=== PATIENT | female | born 1970 | race Two or more races ===

== ENCOUNTER 2017-02-02 18:37 | Inpatient (IN) | payer MEDICAID ==
[~2017-02-02] VITALS: Ht 162.6 cm; Wt 81.0 kg
[~2017-02-02 18:37] MED LIST: ASPI-498 PO; ATOR1TAB PO; B-COTAB10 OR; CALC0.5C PO; CALC667T2 PO; DOC100C PO; FAM20T PO; FERR324T4 PO; FOLITAB45 PO; INSLANTI SC; INSU100I4 SC; LIS20T PO; SENN8.6T54 PO; SEVE800T PO
[2017-02-02 20:00] LABS: Basophils # (auto) 0 uL; Basophils % (auto) 0.3 % (0.0-2.0); Eosinophils # (auto) 0.6 uL; Eosinophils % (auto) 4.6 % (0.0-7.0); Hematocrit 32.2 % (36.0-46.0); Hemoglobin 10.5 g/dL (12.2-16.2); Lymphocytes # (auto) 0.9 uL; Lymphocytes % (auto) 6.9 % (10.0-50.0); Mean Corpuscular Hemoglobin 32.3 pg (28.0-32.0); Mean Corpuscular Hgb Conc. 32.5 g/dL (32.0-36.0); Mean Corpuscular Volume 99.3 fL (80.0-100.0); Mean Platelet Volume 7.9 fL (7.4-10.4); Monocytes # (auto) 0.5 uL; Monocytes % (auto) 3.8 % (0.0-12.0); Neutrophils # (auto) 10.6 uL; Neutrophils % (auto) 84.4 % (37.0-80.0); Platelet Count (auto) 267 10^3/uL (140-450); Red Cell Distribution Width 16.2 % (11.6-16.0); White Blood Cell 12.5 10^3/uL (4.4-10.8)
[2017-02-02 20:09] LABS: Albumin 2.3 g/dL (3.4-5.0); BUN/Creatinine Ratio 4.3; Calcium 6.8 mg/dL (8.5-10.1); Potassium 3.3 mmol/L (3.5-5.1)
[2017-02-02 20:25] LABS: Bilirubin, Total 0.4 mg/dL (0.2-1.0); Total Protein 6.6 g/dL (6.4-8.2)
[2017-02-02] MEDS ORDERED: ASPirin 81 mg TAB PO ONE (21:45)
[2017-02-03] VITALS (8 sets, daily range): BP systolic 147–166; BP diastolic 66–91
[2017-02-03] MEDS ORDERED: cloNIDine HCL 0.1 MG TAB PO PRN (02:30)
[2017-02-03] MEDS ORDERED: MORPHINE SULF INJ 2 MG/ML SYRINGE 1ML IV PRN (02:30)
[2017-02-03] MEDS ORDERED: ONDANSETRON HCL 4 MG/2 ML VIAL IV PRN (02:30)
[2017-02-03] MEDS ORDERED: POTASSIUM CHL 20 Meq TABLET PO ONE (02:30)
[2017-02-03] MEDS ORDERED: DEXTROSE (50%) 50ML SYRG IV PRN (02:30)
[2017-02-03] MEDS ORDERED: NITROGLYCERIN 0.4 MG SL TAB SL PRN (02:30)
[2017-02-03] MEDS ORDERED: ACETAMINOPHEN 325 MG TAB PO PRN (02:30)
[2017-02-03] MEDS: ACCU-CHEK COMFORT CURVE STRIP VI SCH ×4 (05:28→23:59)
[2017-02-03] MEDS: InsuLIN REG 1unit/0.01ml Soln (100units/ml) SC SCH ×3 (06:20→18:28)
[2017-02-03] MEDS ORDERED: LISINOPRIL 20 MG TAB PO SCH (10:00)
[2017-02-03] MEDS ORDERED: CLOPIDOGREL BISULFATE 75 MG TAB PO SCH (10:00)
[2017-02-03] MEDS ORDERED: ASPirin 81 mg TAB PO SCH (10:00)
[2017-02-03] MEDS: ENOXAPARIN SOD 30 MG/0.3 ML SYRINGE SC SCH (10:18)
[2017-02-03] MEDS: FOLIC ACID 1 MG TAB PO SCH (10:19)
[2017-02-03] MEDS: FAMOTIDINE 20 MG TAB PO SCH ×2 (10:19→22:04)
[2017-02-03] MEDS: B-COMPLEX W/ C & FOLIC ACID(NEPHROVITE TAB) PO SCH (10:19)
[2017-02-03] MEDS: FERROUS SULFATE 325 MG TAB PO SCH ×2 (10:20→17:20)
[2017-02-03] MEDS: LISINOPRIL 20 MG TAB PO SCH ×2 (10:24→22:04)
[2017-02-03] MEDS: HYDROcodone-ACET 5/325MG TAB PO PRN (17:20)
[2017-02-03] MEDS ORDERED: LORazepam 2MG/ML-1ML VIAL IV PRN (21:15)
[2017-02-03] MEDS: ATORVASTATIN 20 MG TAB PO SCH (22:05)
[2017-02-04 04:57] VITALS: BP 148/69
[2017-02-04] MEDS: ACCU-CHEK COMFORT CURVE STRIP VI SCH ×3 (05:43→17:37)
[2017-02-04] MEDS: InsuLIN REG 1unit/0.01ml Soln (100units/ml) SC SCH ×4 (05:45→17:38)
[2017-02-04 06:23] LABS: Basophils # (auto) 0.1 uL; Basophils % (auto) 0.6 % (0.0-2.0); Eosinophils # (auto) 0.6 uL; Eosinophils % (auto) 7.1 % (0.0-7.0); Hematocrit 30.4 % (36.0-46.0); Lymphocytes # (auto) 0.9 uL; Lymphocytes % (auto) 9.3 % (10.0-50.0); Mean Corpuscular Hemoglobin 32.4 pg (28.0-32.0); Mean Corpuscular Volume 98.2 fL (80.0-100.0); Mean Platelet Volume 7.8 fL (7.4-10.4); Monocytes # (auto) 0.4 uL; Monocytes % (auto) 4.2 % (0.0-12.0); Neutrophils # (auto) 7.2 uL; Neutrophils % (auto) 78.8 % (37.0-80.0); Platelet Count (auto) 252 10^3/uL (140-450); Red Cell Distribution Width 15.5 % (11.6-16.0); White Blood Cell 9.2 10^3/uL (4.4-10.8)
[2017-02-04 07:00] LABS: Albumin 2.2 g/dL (3.4-5.0); BUN/Creatinine Ratio 4.6; Bilirubin, Total 0.4 mg/dL (0.2-1.0); Calcium 6.9 mg/dL (8.5-10.1); Potassium 3.5 mmol/L (3.5-5.1); Total Protein 6.2 g/dL (6.4-8.2)
[2017-02-04] MEDS: FERROUS SULFATE 325 MG TAB PO SCH ×2 (07:43→17:38)
[2017-02-04 09:00] VITALS: BP 191/91
[2017-02-04] MEDS: B-COMPLEX W/ C & FOLIC ACID(NEPHROVITE TAB) PO SCH (10:15)
[2017-02-04] MEDS: ASPirin 81 mg TAB PO SCH (10:15)
[2017-02-04] MEDS: FAMOTIDINE 20 MG TAB PO SCH ×2 (10:15→22:18)
[2017-02-04] MEDS: FOLIC ACID 1 MG TAB PO SCH (10:15)
[2017-02-04] MEDS: ENOXAPARIN SOD 30 MG/0.3 ML SYRINGE SC SCH (10:16)
[2017-02-04] MEDS: LISINOPRIL 20 MG TAB PO SCH ×2 (10:16→22:18)
[2017-02-04 13:00] VITALS: BP 177/73
[2017-02-04 17:00] VITALS: BP 153/66
[2017-02-04 20:00] VITALS: BP 159/73
[2017-02-04 22:00] VITALS: BP 159/73
[2017-02-04] MEDS: ATORVASTATIN 20 MG TAB PO SCH (22:17)
[2017-02-05] MEDS: ACCU-CHEK COMFORT CURVE STRIP VI SCH ×3 (00:30→12:05)
[2017-02-05] MEDS: InsuLIN REG 1unit/0.01ml Soln (100units/ml) SC SCH ×2 (00:30→07:12)
[2017-02-05 05:57] VITALS: BP 155/76
[2017-02-05 06:32] LABS: BUN/Creatinine Ratio 4.7; Calcium 6.7 mg/dL (8.5-10.1); Potassium 3.5 mmol/L (3.5-5.1)
[2017-02-05] MEDS: FERROUS SULFATE 325 MG TAB PO SCH (08:38)
[2017-02-05] MEDS: HYDROcodone-ACET 5/325MG TAB PO PRN (08:38)
[2017-02-05 10:29] VITALS: BP 168/74
[2017-02-05] MEDS: ASPirin 81 mg TAB PO SCH (10:36)
[2017-02-05] MEDS: ENOXAPARIN SOD 30 MG/0.3 ML SYRINGE SC SCH (10:37)
[2017-02-05] MEDS: FAMOTIDINE 20 MG TAB PO SCH (10:37)
[2017-02-05] MEDS: B-COMPLEX W/ C & FOLIC ACID(NEPHROVITE TAB) PO SCH (10:37)
[2017-02-05] MEDS: FOLIC ACID 1 MG TAB PO SCH (10:37)
[2017-02-05] MEDS: LISINOPRIL 20 MG TAB PO SCH (10:39)
[2017-02-05 14:11] VITALS: BP 168/74
[2017-02-05 14:41] VITALS: BP 165/82
[2017-02-06] MEDS ORDERED: LOSA50TA6 PO (23:04)
[2017-02-06] MEDS ORDERED: GABA300C8 PO (23:04)
[2017-02-06] MEDS ORDERED: CARV3.1240 PO (23:04)
== END 2017-02-05 15:40 | disposition home or self-care (01) | DRG 45 ==
LOC: EDUNIT# 18:37 → ER 18:43 → TELE 18:44 → TELE-CENTR 02-03 03:23
PROVIDERS: ADMIT Nurse Practitioner; ATTEND Internal Medicine
DX: I63.9 Cerebral infarction, unspecified (principal); E43 Unspecified severe protein-calorie malnutrition; N18.6 End stage renal disease; I12.0 Hypertensive chronic kidney disease with stage 5 chronic kidney disease or end stage renal disease; E11.65 Type 2 diabetes mellitus with hyperglycemia; E11.42 Type 2 diabetes mellitus with diabetic polyneuropathy; E11.22 Type 2 diabetes mellitus with diabetic chronic kidney disease; I05.0 Rheumatic mitral stenosis; E78.00 Pure hypercholesterolemia, unspecified; Z79.899 Other long term (current) drug therapy; Z79.82 Long term (current) use of aspirin; Z79.02 Long term (current) use of antithrombotics/antiplatelets; Z83.3 Family history of diabetes mellitus; Z82.49 Family history of ischemic heart disease and other diseases of the circulatory system; Z99.2 Dependence on renal dialysis; Z72.0 Tobacco use; Z84.89 Family history of other specified conditions; Z68.30 Body mass index [BMI] 30.0-30.9, adult
CPT/HCPCS: 36415; 70450; 70551; 71010; 80048; 80053; 82962; 84484; 84702; 85025; 93005; 93886; J1815; J2405

== ENCOUNTER 2017-02-06 13:27 | Observation (INO) | payer MEDICAID ==
[~2017-02-06] VITALS: Ht 165.1 cm; Wt 81.6 kg
[2017-02-06 14:25] LABS: Basophils # (auto) 0 uL; Basophils % (auto) 0.1 % (0.0-2.0); Eosinophils # (auto) 0.2 uL; Eosinophils % (auto) 2.1 % (0.0-7.0); Hematocrit 29.4 % (36.0-46.0); Hemoglobin 9.8 g/dL (12.2-16.2); Lymphocytes # (auto) 0.6 uL; Lymphocytes % (auto) 5.6 % (10.0-50.0); Mean Corpuscular Hemoglobin 32.5 pg (28.0-32.0); Mean Corpuscular Hgb Conc. 33.2 g/dL (32.0-36.0); Mean Corpuscular Volume 97.7 fL (80.0-100.0); Mean Platelet Volume 7.9 fL (7.4-10.4); Monocytes # (auto) 0.5 uL; Monocytes % (auto) 4.6 % (0.0-12.0); Neutrophils # (auto) 10.2 uL; Neutrophils % (auto) 87.6 % (37.0-80.0); Platelet Count (auto) 272 10^3/uL (140-450); Red Cell Distribution Width 15.1 % (11.6-16.0); White Blood Cell 11.6 10^3/uL (4.4-10.8)
[2017-02-06 14:50] LABS: Albumin 2.1 g/dL (3.4-5.0); BUN/Creatinine Ratio 4.4; Bilirubin, Total 0.4 mg/dL (0.2-1.0); Calcium 7.2 mg/dL (8.5-10.1); Potassium 3.6 mmol/L (3.5-5.1); Total Protein 6.2 g/dL (6.4-8.2)
[2017-02-06 18:47] LABS: INR 0.98 (0.9-1.15); Partial Thromboplastin Time 25.7 sec (22.64-33.71); Prothrombin Time 10.1 sec (9.37-12.3)
[2017-02-06] MEDS ORDERED: ACETAMINOPHEN 325 MG TAB PO ONE (21:00)
[2017-02-06] MEDS ORDERED: CARV3.1240 PO (23:04)
[2017-02-06] MEDS ORDERED: GABA300C8 PO (23:04)
[2017-02-06] MEDS ORDERED: LOSA50TA6 PO (23:04)
[2017-02-06] MEDS ORDERED: LORazepam 0.5 MG TAB PO ONE (23:30)
[2017-02-07 00:57] VITALS: BP 174/86
== END 2017-02-07 01:00 | disposition home or self-care (01) | DRG 53 ==
LOC: ER 13:27 → OVERFLOW 17:47 → ER 02-07 01:00
PROVIDERS: ADMIT Family Medicine; ATTEND Family Medicine
DX: R56.9 Unspecified convulsions (principal); I12.0 Hypertensive chronic kidney disease with stage 5 chronic kidney disease or end stage renal disease; N18.6 End stage renal disease; E11.22 Type 2 diabetes mellitus with diabetic chronic kidney disease; Z99.2 Dependence on renal dialysis; K21.9 Gastro-esophageal reflux disease without esophagitis; D63.8 Anemia in other chronic diseases classified elsewhere; E78.5 Hyperlipidemia, unspecified; Z79.4 Long term (current) use of insulin
CPT/HCPCS: 36415; 70450; 71010; 80053; 82962; 83735; 85025; 85610; 85730; 93005; 99285; G0378

== ENCOUNTER 2017-05-26 15:58 | Emergency (ER) | payer MEDICAID ==
[~2017-05-26] VITALS: Ht 167.6 cm; Wt 72.6 kg
[~2017-05-26 15:58] MED LIST changes: +CARV3.1240 PO; +GABA-497 PO; -LIS20T PO; +LOSA50TA6 PO
[2017-05-26 16:50] LABS: Basophils # (auto) 0 uL; Basophils % (auto) 0.3 % (0.0-2.0); CONDITION Y; Eosinophils # (auto) 0.2 uL; Eosinophils % (auto) 2.1 % (0.0-7.0); Hematocrit 30.5 % (36.0-46.0); Hemoglobin 10.2 g/dL (12.2-16.2); Lymphocytes # (auto) 0.7 uL; Lymphocytes % (auto) 8.6 % (10.0-50.0); Mean Corpuscular Hemoglobin 32.6 pg (28.0-32.0); Mean Corpuscular Hgb Conc. 33.6 g/dL (32.0-36.0); Mean Corpuscular Volume 97.2 fL (80.0-100.0); Mean Platelet Volume 7.5 fL (7.4-10.4); Monocytes # (auto) 0.4 uL; Monocytes % (auto) 4.1 % (0.0-12.0); Neutrophils # (auto) 7.3 uL; Neutrophils % (auto) 84.9 % (37.0-80.0); Platelet Count (auto) 404 10^3/uL (140-450); Red Cell Distribution Width 17.8 % (11.6-16.0); White Blood Cell 8.6 10^3/uL (4.4-10.8)
[2017-05-26 17:06] LABS: BUN/Creatinine Ratio 3.5; Potassium 4.3 mmol/L (3.5-5.1)
[2017-05-26] MEDS ORDERED: ENOXAPARIN SOD 80 MG/0.8ML SYRINGE SC ONE (22:30)
[2017-05-26] MEDS ORDERED: HYDROmorphone HCL 2 MG/ML VL IV ONE (22:45)
[2017-05-26] MEDS ORDERED: ONDANSETRON HCL 4 MG/2 ML VIAL IV ONE (22:45)
[2017-05-27 03:08] VITALS: BP 134/75
[2017-05-27] MEDS ORDERED: ONDANSETRON HCL 4 MG/2 ML VIAL ONE (03:13)
== END 2017-05-27 04:02 | disposition short-term general hospital (02) ==
LOC: ER 16:02
DX: E11.52 Type 2 diabetes mellitus with diabetic peripheral angiopathy with gangrene (principal); I96 Gangrene, not elsewhere classified; I12.0 Hypertensive chronic kidney disease with stage 5 chronic kidney disease or end stage renal disease; D64.9 Anemia, unspecified; E11.22 Type 2 diabetes mellitus with diabetic chronic kidney disease; N18.6 End stage renal disease; K21.9 Gastro-esophageal reflux disease without esophagitis; Z79.4 Long term (current) use of insulin; Z79.899 Other long term (current) drug therapy; Z88.0 Allergy status to penicillin; Z87.891 Personal history of nicotine dependence
CPT/HCPCS: 36415; 73700; 80048; 85025; 93005; 96372; 96374; 96375; 99285; J1170; J1650; J2405

== ENCOUNTER 2018-01-16 13:15 | Inpatient (IN) | payer MEDICAID ==
[~2018-01-16] VITALS: Ht 165.1 cm; Wt 77.3 kg
[2018-01-16] VITALS (11 sets, daily range): BP systolic 97–127; BP diastolic 20–64
[~2018-01-16 13:15] MED LIST changes: -ASPI-498 PO; +ATOR10TA52 PO; -ATOR1TAB PO; +B-COTAB10 PO; +CALC667C PO; -CALC667T2 PO; +CLOP75TA28 PO; -FAM20T PO; +FAMO20IN2 PO; +FERR-20 PO; -FERR324T4 PO; +FOLI1TAB6 PO; -FOLITAB45 PO; -GABA-497 PO; +GABA300C10 PO; -INSLANTI SC; +INSUINJ37 SUBCUT; +LORA1TAB12 PO; -LOSA50TA6 PO; +VENL75TA PO; +WARF5TAB71 PO; +ZINC220C8 PO
[2018-01-16 14:02] LABS: Basophils # (auto) 0.1 uL; Basophils % (auto) 0.6 % (0.0-2.0); Eosinophils # (auto) 0.4 uL; Mean Corpuscular Hgb Conc. 32.6 g/dL (32.0-36.0); Monocytes # (auto) 0.6 uL; Neutrophils # (auto) 10.6 uL
[2018-01-16 14:03] LABS: Eosinophils % (auto) 3.3 % (0.0-7.0); Hematocrit 17.7 % (36.0-46.0); Lymphocytes # (auto) 1.2 uL; Lymphocytes % (auto) 9.3 % (10.0-50.0); Mean Corpuscular Hemoglobin 33.1 pg (28.0-32.0); Mean Corpuscular Volume 101.6 fL (80.0-100.0); Monocytes % (auto) 4.9 % (0.0-12.0); Neutrophils % (auto) 81.9 % (37.0-80.0); Platelet Count (auto) 299 10^3/uL (140-450); Red Blood Cells 1.74 10^6/uL (4.0-5.20); Red Cell Distribution Width 16.2 % (11.8-14.3)
[2018-01-16 14:21] LABS: Albumin 1.7 g/dL (3.4-5.0); BUN/Creatinine Ratio 6.5; Bilirubin, Total 0.2 mg/dL (0.2-1.0); Calcium 8.3 mg/dL (8.5-10.1); Hemoglobin 5.8 g/dL (12.2-16.2); Potassium 4.2 mmol/L (3.5-5.1)
[2018-01-16] MEDS ORDERED: SODIUM CHLORIDE 0.9% 1,000 ML IV ONE (15:41)
[2018-01-16 16:58] LABS: Prothrombin Time 86.4 sec (9.37-12.3)
[2018-01-16 17:17] LABS: INR 7.76 (0.9-1.15)
[2018-01-16 17:18] LABS: Partial Thromboplastin Time 83.2 sec (22.64-33.71)
[2018-01-16] MEDS ORDERED: cefTRIAXone 1GM/10ml IVPUSH 10 ML IV ONE (17:30)
[2018-01-16] MEDS ORDERED: cefTRIAXone SOD 1,000 MG VL ONE (19:20)
[2018-01-16] MEDS ORDERED: PERCOT PO (22:38)
[2018-01-16] MEDS ORDERED: NIFE60TA53 PO (22:38)
[2018-01-16] MEDS ORDERED: SENN1TAB14 PO (22:38)
[2018-01-16] MEDS ORDERED: MORPHINE SULFATE 4 MG/ML SYR/VIAL IV PRN (22:45)
[2018-01-16] MEDS ORDERED: ONDANSETRON HCL 4 MG/2 ML VIAL IV PRN (22:45)
[2018-01-16] MEDS ORDERED: HYDROcodone-ACET 5/325MG TAB PO PRN (22:45)
[2018-01-16] MEDS ORDERED: ACETAMINOPHEN 500 MG TAB PO PRN (22:45)
[2018-01-16] MEDS ORDERED: LORazepam 0.5 MG TAB PO PRN (22:45)
[2018-01-16] MEDS ORDERED: PHYTONADIONE (VIT K)10 MG/ML 1ML VIAL SUBCUT ONE (22:45)
[2018-01-16] MEDS ORDERED: NITROGLYCERIN 0.4 MG SL TAB SL PRN (22:45)
[2018-01-16] MEDS ORDERED: DEXTROSE (50%) 50ML SYRG IV PRN (22:45)
[2018-01-16] MEDS ORDERED: phytonadione 1 ML ONE (22:51)
[2018-01-17] VITALS (8 sets, daily range): BP systolic 110–177; BP diastolic 56–76
[2018-01-17 01:36] LABS: Hematocrit 25.1 % (36.0-46.0); Hemoglobin 8.5 g/dL (12.2-16.2); Mean Corpuscular Hemoglobin 30.2 pg (28.0-32.0); Mean Corpuscular Hgb Conc. 33.8 g/dL (32.0-36.0); Mean Corpuscular Volume 89.4 fL (80.0-100.0); Platelet Count (auto) 220 10^3/uL (140-450); White Blood Cell 9.2 10^3/uL (4.4-10.8)
[2018-01-17 01:37] LABS: Red Cell Distribution Width 20.8 % (11.8-14.3)
[2018-01-17 01:38] LABS: Basophils % (manual) 0 (0.0-2.0); Blast Cells 0; Metamyelocytes % 0; Myelocytes % 0; Promyelocytes % 0; Reactive Lymphocytes 0
[2018-01-17 02:14] LABS: Band Neutrophils % (manual) 1; Eosinophils % (manual) 2 (0-7); Lymphocytes % (manual) 16 (10.0-50.0); Monocytes % (manual) 2 (0-12)
[2018-01-17] MEDS: InsuLIN REG 1unit/0.01ml Soln (100units/ml) SC SCH ×3 (07:00→17:34)
[2018-01-17] MEDS: ACCU-CHEK COMFORT CURVE STRIP VI SCH ×3 (07:06→17:29)
[2018-01-17 08:23] LABS: INR 2.55 (0.9-1.15); Partial Thromboplastin Time 49.3 sec (22.64-33.71); Prothrombin Time 28.1 sec (9.37-12.3)
[2018-01-17 08:26] LABS: BUN/Creatinine Ratio 6.8; Calcium 8.2 mg/dL (8.5-10.1)
[2018-01-17] MEDS: SEVELAMER 800 MG TAB PO SCH ×3 (09:14→17:29)
[2018-01-17] MEDS: GABAPENTIN 300 MG CAP PO SCH (10:01)
[2018-01-18] MEDS: PERITONEAL DIALYSIS 2.5% SOLN 2,000 ML IP SCH
[2018-01-18] MEDS: InsuLIN REG 1unit/0.01ml Soln (100units/ml) SC SCH ×5 (00:31→22:08)
[2018-01-18] MEDS: ACCU-CHEK COMFORT CURVE STRIP VI SCH ×5 (00:31→22:07)
[2018-01-18] MEDS ORDERED: NIFEdipine ER 30 MG TAB PO ONE (01:00)
[2018-01-18] MEDS ORDERED: CARVEDILOL 3.125 MG TAB PO ONE (01:00)
[2018-01-18 05:30] VITALS: BP 129/67
[2018-01-18] MEDS: PERITONEAL DIALYSIS 1.5% SOLN 2,000 ML IP SCH ×2 (06:20→11:13)
[2018-01-18 06:44] LABS: White Blood Cell 12.8 10^3/uL (4.4-10.8)
[2018-01-18 06:45] LABS: Hematocrit 25.3 % (36.0-46.0); Hemoglobin 8.5 g/dL (12.2-16.2); Mean Corpuscular Hemoglobin 30.1 pg (28.0-32.0); Mean Corpuscular Hgb Conc. 33.6 g/dL (32.0-36.0); Mean Corpuscular Volume 89.6 fL (80.0-100.0); Platelet Count (auto) 246 10^3/uL (140-450); Red Blood Cells 2.83 10^6/uL (4.0-5.20)
[2018-01-18 06:46] LABS: Red Cell Distribution Width 20.4 % (11.8-14.3)
[2018-01-18 06:48] LABS: Band Neutrophils % (manual) 0; Basophils % (manual) 0 (0.0-2.0); Blast Cells 0; Metamyelocytes % 0; Myelocytes % 0; Promyelocytes % 0; Reactive Lymphocytes 0
[2018-01-18 07:05] LABS: Albumin 1.7 g/dL (3.4-5.0); BUN/Creatinine Ratio 6.9; Calcium 8.1 mg/dL (8.5-10.1)
[2018-01-18 07:08] LABS: Bilirubin, Total 0.4 mg/dL (0.2-1.0); Total Protein 5.8 g/dL (6.4-8.2)
[2018-01-18 07:22] LABS: Eosinophils % (manual) 3 (0-7); Lymphocytes % (manual) 11 (10.0-50.0); Monocytes % (manual) 3 (0-12)
[2018-01-18] MEDS: SEVELAMER 800 MG TAB PO SCH ×3 (08:10→18:10)
[2018-01-18 08:22] VITALS: BP 109/53
[2018-01-18] MEDS: NIFEdipine ER 30 MG TAB PO SCH (10:00)
[2018-01-18] MEDS: CARVEDILOL 3.125 MG TAB PO SCH ×2 (10:05→22:08)
[2018-01-18] MEDS: GABAPENTIN 300 MG CAP PO SCH (10:06)
[2018-01-18 13:22] VITALS: BP 137/58
[2018-01-18 16:54] VITALS: BP 151/68
[2018-01-18] MEDS ORDERED: EPOETIN ALFA 10,000 UNIT/1 ML VIAL SC ONE (17:45)
[2018-01-18] MEDS: PRO-STAT 64 30ML PO SCH (18:10)
[2018-01-18 21:19] VITALS: BP 169/81
[2018-01-19] MEDS: PERITONEAL DIALYSIS 2.5% SOLN 2,000 ML IP SCH ×2 (00:16→05:50)
[2018-01-19 00:22] VITALS: BP 156/66
[2018-01-19 05:36] VITALS: BP 146/66
[2018-01-19] MEDS: PERITONEAL DIALYSIS 1.5% SOLN 2,000 ML IP SCH (06:12)
[2018-01-19] MEDS: ACCU-CHEK COMFORT CURVE STRIP VI SCH (06:19)
[2018-01-19] MEDS: InsuLIN REG 1unit/0.01ml Soln (100units/ml) SC SCH (06:20)
[2018-01-19 06:41] LABS: Neutrophils # (auto) 8.1 uL
[2018-01-19 06:44] LABS: Basophils # (auto) 0.1 uL; Basophils % (auto) 0.5 % (0.0-2.0); Eosinophils # (auto) 0.5 uL; Eosinophils % (auto) 4.6 % (0.0-7.0); Hematocrit 24.6 % (36.0-46.0); Hemoglobin 8.2 g/dL (12.2-16.2); Lymphocytes % (auto) 9.9 % (10.0-50.0); Mean Corpuscular Hgb Conc. 33.3 g/dL (32.0-36.0); Mean Corpuscular Volume 90.1 fL (80.0-100.0); Monocytes # (auto) 0.4 uL; Monocytes % (auto) 4.2 % (0.0-12.0); Neutrophils % (auto) 80.8 % (37.0-80.0); Platelet Count (auto) 256 10^3/uL (140-450); Red Blood Cells 2.73 10^6/uL (4.0-5.20); White Blood Cell 10.1 10^3/uL (4.4-10.8)
[2018-01-19 06:46] LABS: Prothrombin Time 10.9 sec (9.37-12.3)
[2018-01-19 06:56] LABS: Red Cell Distribution Width 20.5 % (11.8-14.3)
[2018-01-19 06:59] LABS: Potassium 3.8 mmol/L (3.5-5.1)
[2018-01-19 07:16] LABS: Albumin 1.7 g/dL (3.4-5.0); BUN/Creatinine Ratio 6.9; Calcium 8.2 mg/dL (8.5-10.1)
[2018-01-19 07:19] LABS: Bilirubin, Total 0.4 mg/dL (0.2-1.0); Total Protein 5.8 g/dL (6.4-8.2)
[2018-01-19] MEDS: SEVELAMER 800 MG TAB PO SCH (08:00)
[2018-01-19] MEDS: PRO-STAT 64 30ML PO SCH (08:00)
[2018-01-19 08:42] VITALS: BP 130/59
[2018-01-19] MEDS: GABAPENTIN 300 MG CAP PO SCH (09:50)
[2018-01-19] MEDS: NIFEdipine ER 30 MG TAB PO SCH (09:50)
[2018-01-19] MEDS: CARVEDILOL 3.125 MG TAB PO SCH (09:50)
[2018-01-19] MEDS ORDERED: Novasource Renal 8 Ounces PO SCH (10:00)
[2018-01-19 11:04] VITALS: BP 143/68
[2018-01-19 12:35] VITALS: BP 149/69
== END 2018-01-19 14:38 | disposition home or self-care (01) | DRG 661 ==
LOC: EDUNIT# 13:15 → ER 13:15 → EDBD 13:15 → OVERFLOW 13:16 → TELE-EAST 01-17 03:00
PROVIDERS: ADMIT Internal Medicine; ATTEND Internal Medicine
PROC: 30233L1 Transfusion of Nonautologous Fresh Plasma into Peripheral Vein, Percutaneous Approach (ICD-10-PCS; principal; 2018-01-16)
PROC: 30233N1 Transfusion of Nonautologous Red Blood Cells into Peripheral Vein, Percutaneous Approach (ICD-10-PCS; 2018-01-16)
PROC: 30233K1 Transfusion of Nonautologous Frozen Plasma into Peripheral Vein, Percutaneous Approach (ICD-10-PCS; 2018-01-16)
DX: D68.32 Hemorrhagic disorder due to extrinsic circulating anticoagulants (principal); E43 Unspecified severe protein-calorie malnutrition; D68.59 Other primary thrombophilia; N18.6 End stage renal disease; I12.0 Hypertensive chronic kidney disease with stage 5 chronic kidney disease or end stage renal disease; E11.51 Type 2 diabetes mellitus with diabetic peripheral angiopathy without gangrene; N92.0 Excessive and frequent menstruation with regular cycle; D50.0 Iron deficiency anemia secondary to blood loss (chronic); E11.621 Type 2 diabetes mellitus with foot ulcer; T45.515A Adverse effect of anticoagulants, initial encounter; D63.8 Anemia in other chronic diseases classified elsewhere; F41.9 Anxiety disorder, unspecified; G40.909 Epilepsy, unspecified, not intractable, without status epilepticus; L97.511 Non-pressure chronic ulcer of other part of right foot limited to breakdown of skin; F32.9 Major depressive disorder, single episode, unspecified; Z80.0 Family history of malignant neoplasm of digestive organs; Z80.1 Family history of malignant neoplasm of trachea, bronchus and lung; Z89.512 Acquired absence of left leg below knee; Z99.2 Dependence on renal dialysis; Z79.899 Other long term (current) drug therapy; Y92.89 Other specified places as the place of occurrence of the external cause; Z68.28 Body mass index [BMI] 28.0-28.9, adult; Z82.49 Family history of ischemic heart disease and other diseases of the circulatory system; Z83.3 Family history of diabetes mellitus; E88.09 Other disorders of plasma-protein metabolism, not elsewhere classified
CPT/HCPCS: 36415; 71045; 76830; 76856; 80048; 80053; 82962; 83036; 83735; 83880; 84443; 84702; 85007; 85025; 85027; 85610; 85730; 86850; 86900; 86901; 86920; 87040; 87081; 93005; 94761; 96361; 96374; 97163; G0378; J0696; J0885; J1815; J3430

== ENCOUNTER 2018-04-10 19:42 | Inpatient (IN) | payer MEDICAID ==
[~2018-04-10] VITALS: Ht 160 cm; Wt 73.0 kg
[~2018-04-10 19:42] MED LIST changes: -B-COTAB10 PO; -CALC0.5C PO; +NIFE60TA53 PO; +PERCOT PO; +SENN1TAB14 PO; -SENN8.6T54 PO
[2018-04-10] MEDS ORDERED: SODIUM CHLORIDE 0.9% 1,000 ML IVB ONE (21:09)
[2018-04-10 21:53] LABS: Mean Corpuscular Volume 95.7 fL (80.0-100.0)
[2018-04-10 21:55] LABS: Hematocrit 35.4 % (36.0-46.0); Hemoglobin 11.8 g/dL (12.2-16.2); Mean Corpuscular Hgb Conc. 33.4 g/dL (32.0-36.0); Platelet Count (auto) 515 10^3/uL (140-450); Red Cell Distribution Width 15.7 % (11.8-14.3)
[2018-04-10 22:00] LABS: White Blood Cell 31.8 10^3/uL (4.4-10.8)
[2018-04-10 22:01] LABS: Band Neutrophils % (manual) 0; Basophils % (manual) 0 (0.0-2.0); Blast Cells 0; Eosinophils % (manual) 0 (0-7); Metamyelocytes % 0; Myelocytes % 0; Promyelocytes % 0; Reactive Lymphocytes 0
[2018-04-10 22:03] LABS: INR 1.01 (0.9-1.15); Partial Thromboplastin Time 26.6 sec (23.78-33.04); Prothrombin Time 10.8 sec (9.27-12.13)
[2018-04-10 22:09] LABS: Albumin 1.3 g/dL (3.4-5.0); BUN/Creatinine Ratio 4.2; Calcium 7.3 mg/dL (8.5-10.1); Magnesium 1.7 mg/dL (1.6-2.6)
[2018-04-10 22:14] LABS: Bilirubin, Total 0.3 mg/dL (0.2-1.0); Total Protein 6.5 g/dL (6.4-8.2)
[2018-04-10] MEDS ORDERED: CLINDAMYCIN 600MG IV 50 ML IV ONE (22:15)
[2018-04-10 22:25] LABS: Potassium 2.8 mmol/L (3.5-5.1)
[2018-04-10 22:33] LABS: Lactic Acid w/Reflex 3.5 mmol/L (0.4-2.0)
[2018-04-10] MEDS ORDERED: MORPHINE SULFATE 4 MG/ML SYR/VIAL IV ONE (22:45)
[2018-04-10] MEDS ORDERED: ONDANSETRON HCL 4 MG/2 ML VIAL IV ONE (22:45)
[2018-04-10 22:56] LABS: Lymphocytes % (manual) 4 (10.0-50.0); Monocytes % (manual) 1 (0-12)
[2018-04-10] MEDS ORDERED: DEXTROSE (50%) 50ML SYRG IV PRN (23:00)
[2018-04-10] MEDS ORDERED: MORPHINE SULFATE 4 MG/ML SYR/VIAL IV PRN (23:00)
[2018-04-10] MEDS: POTASSIUM CHL 20MEQ/100ML 100 ML IV SCH (23:30)
[2018-04-11 02:30] VITALS: BP 135/74
[2018-04-11] MEDS ORDERED: VANCOMYCIN PER PHARMACY 0 MG IV SCH (03:30)
[2018-04-11] MEDS: POTASSIUM CHL 20MEQ/100ML 100 ML IV SCH (03:56)
[2018-04-11] MEDS: MORPHINE SULFATE 8mg/ml INJ SDV IV PRN ×4 (03:58→22:01)
[2018-04-11] MEDS ORDERED: VANCOMYCIN 1GM/250ML 250 ML IV ONE (04:00)
[2018-04-11] MEDS ORDERED: cefTRIAXone 1GM/10ml IVPUSH 10 ML IV ONE (04:00)
[2018-04-11 05:00] VITALS: BP 122/71
[2018-04-11 06:07] LABS: Hematocrit 31.6 % (36.0-46.0); Mean Corpuscular Hemoglobin 31.1 pg (28.0-32.0); Mean Corpuscular Hgb Conc. 31.6 g/dL (32.0-36.0); Mean Corpuscular Volume 98.3 fL (80.0-100.0); Platelet Count (auto) 420 10^3/uL (140-450); Red Blood Cells 3.22 10^6/uL (4.0-5.20); Red Cell Distribution Width 15.9 % (11.8-14.3)
[2018-04-11 06:23] LABS: White Blood Cell 37.4 10^3/uL (4.4-10.8)
[2018-04-11 06:24] LABS: Basophils % (manual) 0 (0.0-2.0); Blast Cells 0; Eosinophils % (manual) 0 (0-7); Metamyelocytes % 0; Myelocytes % 0; Promyelocytes % 0; Reactive Lymphocytes 0
[2018-04-11 06:29] LABS: Albumin 1.1 g/dL (3.4-5.0); BUN/Creatinine Ratio 4.8; Bilirubin, Total 0.2 mg/dL (0.2-1.0); Calcium 6.6 mg/dL (8.5-10.1); Potassium 3.4 mmol/L (3.5-5.1); Total Protein 5.6 g/dL (6.4-8.2)
[2018-04-11] MEDS: LEVOTHYROXINE SODIUM 100 MCG TAB PO SCH (06:47)
[2018-04-11] MEDS: ACCU-CHEK COMFORT CURVE STRIP VI SCH ×4 (06:49→21:42)
[2018-04-11] MEDS: InsuLIN REG 1unit/0.01ml Soln (100units/ml) SC SCH ×4 (06:50→22:01)
[2018-04-11 08:20] LABS: Band Neutrophils % (manual) 5; Lymphocytes % (manual) 1 (10.0-50.0); Monocytes % (manual) 2 (0-12)
[2018-04-11] MEDS: SEVELAMER 800 MG TAB PO SCH ×3 (09:00→17:15)
[2018-04-11 09:11] VITALS: BP 123/63
[2018-04-11] MEDS: FOLIC ACID 1 MG TAB PO SCH (09:24)
[2018-04-11] MEDS: CLOPIDOGREL BISULFATE 75 MG TAB PO SCH (09:24)
[2018-04-11] MEDS: ONDANSETRON HCL 4 MG/2 ML VIAL IV PRN ×3 (09:24→21:42)
[2018-04-11] MEDS: CARVEDILOL 12.5 MG TAB PO SCH ×2 (09:25→21:42)
[2018-04-11] MEDS: ASPirin-EC 81 mg tab PO SCH (09:25)
[2018-04-11] MEDS: amLODIPine BESYLATE 5 MG TAB PO SCH (09:26)
[2018-04-11 12:26] VITALS: BP 137/66
[2018-04-11] MEDS ORDERED: POTASSIUM CHL 10% (20 MEQ/15ML) 15ml ORAL SOLN PO ONE (16:00)
[2018-04-11 17:36] VITALS: BP 105/59
[2018-04-11] MEDS ORDERED: GENTAMICIN SULFATE IP ONE (18:00)
[2018-04-11] MEDS ORDERED: [UNRECOGNIZED DRUG - OTHER] IP ONE (18:00)
[2018-04-11] MEDS ORDERED: HEPARIN SODIUM IP ONE (18:00)
[2018-04-11] MEDS: LEVOFLOXACIN 250MG 50 ML IV SCH (18:20)
[2018-04-11 22:00] VITALS: BP 112/62
[2018-04-11] MEDS ORDERED: ATORVASTATIN 20 MG TAB PO SCH (22:00)
[2018-04-12 05:04] VITALS: BP_SYST 94; BP_SYST 99; BP_DIAS 47; BP_DIAS 55
[2018-04-12 05:37] LABS: Eosinophils % (auto) 0.2 % (0.0-7.0); Hemoglobin 7.7 g/dL (12.2-16.2); Lymphocytes # (auto) 1.2 uL; Monocytes % (auto) 2.9 % (0.0-12.0)
[2018-04-12 05:39] LABS: Basophils # (auto) 0 uL; Basophils % (auto) 0.1 % (0.0-2.0); Eosinophils # (auto) 0.1 uL; Hematocrit 23.2 % (36.0-46.0); Lymphocytes % (auto) 4.6 % (10.0-50.0); Mean Corpuscular Hemoglobin 32.6 pg (28.0-32.0); Mean Corpuscular Hgb Conc. 33.2 g/dL (32.0-36.0); Monocytes # (auto) 0.7 uL; Neutrophils # (auto) 23.8 uL; Neutrophils % (auto) 92.2 % (37.0-80.0); Platelet Count (auto) 289 10^3/uL (140-450); Red Blood Cells 2.37 10^6/uL (4.0-5.20); Red Cell Distribution Width 16.1 % (11.8-14.3); White Blood Cell 25.8 10^3/uL (4.4-10.8)
[2018-04-12 06:00] LABS: Albumin 0.9 g/dL (3.4-5.0); Calcium 6.7 mg/dL (8.5-10.1); Potassium 3.8 mmol/L (3.5-5.1)
[2018-04-12] MEDS ORDERED: PERITONEAL DIALYSIS 2.5% IP ONE ×5 (06:00→18:00)
[2018-04-12] MEDS ORDERED: HEPARIN SODIUM IP ONE ×5 (06:00→18:00)
[2018-04-12 06:02] LABS: BUN/Creatinine Ratio 5.4
[2018-04-12 06:05] LABS: Bilirubin, Total 0.2 mg/dL (0.2-1.0); Total Protein 5.1 g/dL (6.4-8.2)
[2018-04-12] MEDS: HYDROcodone-ACET 5/325MG TAB PO PRN ×2 (06:07→19:33)
[2018-04-12] MEDS: LEVOTHYROXINE SODIUM 100 MCG TAB PO SCH (06:39)
[2018-04-12] MEDS: InsuLIN REG 1unit/0.01ml Soln (100units/ml) SC SCH ×3 (06:39→18:24)
[2018-04-12] MEDS: ACCU-CHEK COMFORT CURVE STRIP VI SCH ×4 (06:39→22:44)
[2018-04-12] MEDS: SEVELAMER 800 MG TAB PO SCH ×3 (08:47→18:23)
[2018-04-12 09:00] VITALS: BP 99/52
[2018-04-12] MEDS ORDERED: cefTRIAXone 1GM/10ml IVPUSH 10 ML IV SCH (09:00)
[2018-04-12] MEDS ORDERED: CARVEDILOL 3.125 MG TAB PO SCH (10:00)
[2018-04-12] MEDS: amLODIPine BESYLATE 5 MG TAB PO SCH (10:00)
[2018-04-12] MEDS: CLOPIDOGREL BISULFATE 75 MG TAB PO SCH (10:21)
[2018-04-12] MEDS: FOLIC ACID 1 MG TAB PO SCH (10:22)
[2018-04-12] MEDS: ASPirin-EC 81 mg tab PO SCH (10:22)
[2018-04-12 13:00] VITALS: BP 101/72
[2018-04-12 17:00] VITALS: BP 104/56
[2018-04-12 20:00] VITALS: BP 125/57
[2018-04-12] MEDS ORDERED: VANCOMYCIN PER PHARMACY 0 MG IV SCH (20:00)
[2018-04-12] MEDS ORDERED: EPOETIN ALFA 10,000 UNIT/1 ML VIAL SC ONE (20:30)
[2018-04-12] MEDS: SODIUM CHLORIDE 0.9% 1,000 ML IV SCH (21:57)
[2018-04-12] MEDS: ALBUMIN 25% 100 ML IV SCH (21:58)
[2018-04-13] VITALS (12 sets, daily range): BP systolic 127–157; BP diastolic 50–88
[2018-04-13] MEDS: InsuLIN REG 1unit/0.01ml Soln (100units/ml) SC SCH ×5 (00:03→23:59)
[2018-04-13] MEDS: HEPARIN SODIUM IP SCH ×5 (00:14→22:46)
[2018-04-13] MEDS: PERITONEAL DIALYSIS 2.5% IP SCH ×5 (00:14→22:46)
[2018-04-13] MEDS: HYDROcodone-ACET 5/325MG TAB PO PRN ×2 (00:16→06:43)
[2018-04-13] MEDS: MORPHINE SULFATE 8mg/ml INJ SDV IV PRN ×5 (03:16→22:42)
[2018-04-13] MEDS: ALBUMIN 25% 100 ML IV SCH ×3 (04:31→20:12)
[2018-04-13] MEDS ORDERED: HEPARIN SODIUM IP ONE (06:15)
[2018-04-13] MEDS ORDERED: PERITONEAL DIALYSIS 1.5% IP ONE (06:15)
[2018-04-13] MEDS: LEVOTHYROXINE SODIUM 100 MCG TAB PO SCH (06:42)
[2018-04-13] MEDS: ACCU-CHEK COMFORT CURVE STRIP VI SCH ×4 (06:43→22:48)
[2018-04-13 07:01] LABS: Basophils # (auto) 0 uL; Basophils % (auto) 0.3 % (0.0-2.0); Eosinophils # (auto) 0.2 uL; Red Cell Distribution Width 15.8 % (11.8-14.3); White Blood Cell 12.9 10^3/uL (4.4-10.8)
[2018-04-13 07:03] LABS: Eosinophils % (auto) 1.7 % (0.0-7.0); Hematocrit 19.6 % (36.0-46.0); Lymphocytes # (auto) 1.2 uL; Lymphocytes % (auto) 9.5 % (10.0-50.0); Mean Corpuscular Hemoglobin 32.5 pg (28.0-32.0); Mean Corpuscular Hgb Conc. 33.4 g/dL (32.0-36.0); Mean Corpuscular Volume 97.3 fL (80.0-100.0); Monocytes # (auto) 0.5 uL; Monocytes % (auto) 3.7 % (0.0-12.0); Neutrophils # (auto) 10.9 uL; Neutrophils % (auto) 84.8 % (37.0-80.0); Platelet Count (auto) 258 10^3/uL (140-450); Red Blood Cells 2.01 10^6/uL (4.0-5.20)
[2018-04-13 07:18] LABS: Potassium 3.1 mmol/L (3.5-5.1)
[2018-04-13 07:20] LABS: Hemoglobin 6.5 g/dL (12.2-16.2)
[2018-04-13 07:28] LABS: Albumin 2.2 g/dL (3.4-5.0); BUN/Creatinine Ratio 6.3
[2018-04-13 07:33] LABS: Bilirubin, Total 0.3 mg/dL (0.2-1.0); Total Protein 5.9 g/dL (6.4-8.2)
[2018-04-13] MEDS: SEVELAMER 800 MG TAB PO SCH ×5 (08:00→18:00)
[2018-04-13] MEDS: SODIUM CHLORIDE 0.9% 1,000 ML IV SCH (09:20)
[2018-04-13] MEDS: CLOPIDOGREL BISULFATE 75 MG TAB PO SCH (11:47)
[2018-04-13] MEDS: FOLIC ACID 1 MG TAB PO SCH (11:48)
[2018-04-13] MEDS: ASPirin-EC 81 mg tab PO SCH (11:48)
[2018-04-13] MEDS: LEVOFLOXACIN 250MG 50 ML IV SCH (17:12)
[2018-04-13] MEDS ORDERED: methylPREDNISolone SOD SUCC 40 MG/ML VL ONE (19:17)
[2018-04-13] MEDS ORDERED: ALBUTEROL SULF 2.5 MG/0.5ML(0.5%) NEB SOLN ONE (19:18)
[2018-04-13] MEDS ORDERED: methylPREDNISolone SOD SUCC 40 MG/ML VL IV ONE (19:30)
[2018-04-13] MEDS ORDERED: LORazepam 2MG/ML-1ML VIAL ONE (19:32)
[2018-04-13] MEDS: ALBUTEROL SULF 2.5 MG/0.5ML(0.5%) NEB SOLN NEB PRN (19:40)
[2018-04-13] MEDS ORDERED: LORazepam 2MG/ML-1ML VIAL IV ONE (19:45)
[2018-04-13] MEDS ORDERED: LORazepam 2MG/ML-1ML VIAL IV PRN (20:00)
[2018-04-13] MEDS: ONDANSETRON HCL 4 MG/2 ML VIAL IV PRN (22:42)
[2018-04-14] VITALS (10 sets, daily range): BP systolic 107–195; BP diastolic 47–98
[2018-04-14] MEDS: PERITONEAL DIALYSIS 2.5% IP SCH ×6 (02:01→22:25)
[2018-04-14] MEDS: HEPARIN SODIUM IP SCH ×6 (02:01→22:25)
[2018-04-14] MEDS: ALBUMIN 25% 100 ML IV SCH ×2 (04:27→11:44)
[2018-04-14] MEDS: MORPHINE SULFATE 8mg/ml INJ SDV IV PRN (04:46)
[2018-04-14] MEDS: ONDANSETRON HCL 4 MG/2 ML VIAL IV PRN ×2 (04:46→14:49)
[2018-04-14 06:02] LABS: Basophils # (auto) 0 uL; Basophils % (auto) 0.1 % (0.0-2.0); Eosinophils # (auto) 0 uL; Eosinophils % (auto) 0.1 % (0.0-7.0); Hematocrit 26.4 % (36.0-46.0); Lymphocytes # (auto) 0.4 uL; Lymphocytes % (auto) 2.9 % (10.0-50.0); Mean Corpuscular Hemoglobin 32.7 pg (28.0-32.0); Mean Corpuscular Volume 96.2 fL (80.0-100.0); Monocytes # (auto) 0.1 uL; Monocytes % (auto) 0.8 % (0.0-12.0); Neutrophils # (auto) 11.6 uL; Neutrophils % (auto) 96.1 % (37.0-80.0); Platelet Count (auto) 204 10^3/uL (140-450); Red Blood Cells 2.74 10^6/uL (4.0-5.20); Red Cell Distribution Width 16.1 % (11.8-14.3); White Blood Cell 12.1 10^3/uL (4.4-10.8)
[2018-04-14] MEDS: ALBUTEROL SULF 2.5 MG/0.5ML(0.5%) NEB SOLN NEB PRN ×3 (06:31→17:53)
[2018-04-14] MEDS: LEVOTHYROXINE SODIUM 100 MCG TAB PO SCH (06:47)
[2018-04-14] MEDS: ACCU-CHEK COMFORT CURVE STRIP VI SCH ×4 (06:47→22:26)
[2018-04-14] MEDS: InsuLIN REG 1unit/0.01ml Soln (100units/ml) SC SCH ×4 (06:56→22:27)
[2018-04-14 07:07] LABS: Potassium 3.8 mmol/L (3.5-5.1)
[2018-04-14 07:21] LABS: Albumin 2.7 g/dL (3.4-5.0); Calcium 6.9 mg/dL (8.5-10.1)
[2018-04-14 07:30] LABS: Bilirubin, Total 1.1 mg/dL (0.2-1.0); Total Protein 6.5 g/dL (6.4-8.2)
[2018-04-14] MEDS ORDERED: DEXTROSE (50%) 50ML SYRG IV PRN (09:00)
[2018-04-14] MEDS: CLOPIDOGREL BISULFATE 75 MG TAB PO SCH (09:39)
[2018-04-14] MEDS: CARVEDILOL 3.125 MG TAB PO SCH ×2 (09:40→22:26)
[2018-04-14] MEDS: ASPirin-EC 81 mg tab PO SCH (09:40)
[2018-04-14] MEDS: FOLIC ACID 1 MG TAB PO SCH (09:41)
[2018-04-14] MEDS: DOCUSATE SOD 100 MG CAP PO SCH ×2 (09:41→22:26)
[2018-04-14] MEDS: SEVELAMER 800 MG TAB PO SCH ×3 (09:41→17:58)
[2018-04-14] MEDS: NIFEdipine ER 30 MG TAB PO SCH (09:42)
[2018-04-14] MEDS: LORazepam 0.5 MG TAB PO PRN ×2 (09:45→22:27)
[2018-04-14] MEDS ORDERED: B-COMPLEX W/ C & FOLIC ACID(NEPHROVITE TAB) PO ONE (11:00)
[2018-04-14] MEDS ORDERED: ASCORBIC ACID 500 MG TAB PO ONE (11:00)
[2018-04-14] MEDS: LABETALOL HCL 5 MG/ML ML 20ML VIAL IV PRN ×2 (16:38→18:43)
[2018-04-14] MEDS: PRO-STAT 64 30ML PO SCH (18:42)
[2018-04-14] MEDS: Novasource Renal 8 Ounces PO SCH (18:42)
[2018-04-14] MEDS: ASCORBIC ACID 500 MG TAB PO SCH (22:26)
[2018-04-15] MEDS: ALBUTEROL SULF 2.5 MG/0.5ML(0.5%) NEB SOLN NEB PRN ×2 (02:14→19:13)
[2018-04-15] MEDS: HEPARIN SODIUM IP SCH ×7 (02:23→21:42)
[2018-04-15] MEDS: PERITONEAL DIALYSIS 2.5% IP SCH ×6 (02:23→21:42)
[2018-04-15 05:00] VITALS: BP 171/85
[2018-04-15 05:53] LABS: Basophils # (auto) 0 uL; Basophils % (auto) 0.2 % (0.0-2.0); Eosinophils # (auto) 0 uL; Eosinophils % (auto) 0.2 % (0.0-7.0); Hematocrit 26.6 % (36.0-46.0); Lymphocytes # (auto) 0.8 uL; Lymphocytes % (auto) 6.1 % (10.0-50.0); Mean Corpuscular Hemoglobin 32.1 pg (28.0-32.0); Mean Corpuscular Hgb Conc. 33.9 g/dL (32.0-36.0); Mean Corpuscular Volume 94.8 fL (80.0-100.0); Monocytes # (auto) 0.4 uL; Monocytes % (auto) 2.9 % (0.0-12.0); Neutrophils # (auto) 11.6 uL; Neutrophils % (auto) 90.6 % (37.0-80.0); Platelet Count (auto) 193 10^3/uL (140-450); Red Cell Distribution Width 15.4 % (11.8-14.3); White Blood Cell 12.8 10^3/uL (4.4-10.8)
[2018-04-15] MEDS: LABETALOL HCL 5 MG/ML ML 20ML VIAL IV PRN (06:12)
[2018-04-15 06:14] LABS: Albumin 3.1 g/dL (3.4-5.0); BUN/Creatinine Ratio 6.9; Calcium 7.6 mg/dL (8.5-10.1); Potassium 3.1 mmol/L (3.5-5.1)
[2018-04-15] MEDS: InsuLIN REG 1unit/0.01ml Soln (100units/ml) SC SCH ×4 (06:32→22:48)
[2018-04-15] MEDS: LEVOTHYROXINE SODIUM 100 MCG TAB PO SCH (06:32)
[2018-04-15] MEDS: ACCU-CHEK COMFORT CURVE STRIP VI SCH ×4 (06:32→22:33)
[2018-04-15 06:38] LABS: Bilirubin, Total 0.9 mg/dL (0.2-1.0); Total Protein 6.5 g/dL (6.4-8.2)
[2018-04-15] MEDS: SEVELAMER 800 MG TAB PO SCH ×3 (07:40→17:54)
[2018-04-15] MEDS: PRO-STAT 64 30ML PO SCH ×2 (07:45→17:53)
[2018-04-15] MEDS: Novasource Renal 8 Ounces PO SCH ×2 (07:45→17:53)
[2018-04-15 08:00] VITALS: BP 154/74
[2018-04-15 09:00] VITALS: BP 154/74
[2018-04-15] MEDS: ASPirin-EC 81 mg tab PO SCH (10:02)
[2018-04-15] MEDS: B-COMPLEX W/ C & FOLIC ACID(NEPHROVITE TAB) PO SCH (10:02)
[2018-04-15] MEDS: FOLIC ACID 1 MG TAB PO SCH (10:03)
[2018-04-15] MEDS: CARVEDILOL 3.125 MG TAB PO SCH ×2 (10:03→22:33)
[2018-04-15] MEDS: CLOPIDOGREL BISULFATE 75 MG TAB PO SCH (10:03)
[2018-04-15] MEDS: ASCORBIC ACID 500 MG TAB PO SCH ×2 (10:03→22:33)
[2018-04-15] MEDS: NIFEdipine ER 30 MG TAB PO SCH (10:04)
[2018-04-15] MEDS: DOCUSATE SOD 100 MG CAP PO SCH ×2 (10:04→22:32)
[2018-04-15 13:00] VITALS: BP 150/80
[2018-04-15] MEDS: LEVOFLOXACIN 250MG 50 ML IV SCH (17:06)
[2018-04-15 17:22] VITALS: BP 150/81
[2018-04-15] MEDS ORDERED: LACTULOSE 20Gm/30ML SOLN PO ONE (18:30)
[2018-04-15] MEDS: PANTOPRAZOLE 40 MG/10 ML VIAL IV SCH (19:18)
[2018-04-15] MEDS: POTASSIUM CHL 20MEQ/100ML 100 ML IV SCH ×2 (19:19→22:32)
[2018-04-15] MEDS: ONDANSETRON HCL 4 MG/2 ML VIAL IV PRN (19:19)
[2018-04-15 21:21] VITALS: BP 125/58
[2018-04-15] MEDS: PERITONEAL DIALYSIS 4.25% IP SCH (21:42)
[2018-04-15] MEDS ORDERED: PERITONEAL DIALYSIS 4.25% SOLN 2,000 ML IP SCH (22:00)
[2018-04-15] MEDS: INSULIN LANTUS (GLARGINE) 1 /0.01ml (100units/ml) SC SCH (22:47)
[2018-04-16] MEDS: ALBUTEROL SULF 2.5 MG/0.5ML(0.5%) NEB SOLN NEB PRN ×2 (01:55→19:52)
[2018-04-16] MEDS: PERITONEAL DIALYSIS 2.5% IP SCH ×6 (02:00→17:37)
[2018-04-16] MEDS: HEPARIN SODIUM IP SCH ×9 (02:00→22:13)
[2018-04-16 05:00] VITALS: BP 150/76
[2018-04-16 05:38] LABS: Basophils # (auto) 0 uL; Basophils % (auto) 0.1 % (0.0-2.0); Eosinophils # (auto) 0.1 uL; Eosinophils % (auto) 1.6 % (0.0-7.0); Hematocrit 27.7 % (36.0-46.0); Hemoglobin 9.4 g/dL (12.2-16.2); Lymphocytes # (auto) 0.7 uL; Lymphocytes % (auto) 8.6 % (10.0-50.0); Mean Corpuscular Hemoglobin 32.2 pg (28.0-32.0); Mean Corpuscular Hgb Conc. 33.9 g/dL (32.0-36.0); Mean Corpuscular Volume 94.9 fL (80.0-100.0); Monocytes # (auto) 0.3 uL; Neutrophils # (auto) 7.1 uL; Neutrophils % (auto) 85.7 % (37.0-80.0); Platelet Count (auto) 185 10^3/uL (140-450); Red Blood Cells 2.92 10^6/uL (4.0-5.20); Red Cell Distribution Width 15.6 % (11.8-14.3); White Blood Cell 8.3 10^3/uL (4.4-10.8)
[2018-04-16 05:54] LABS: INR 1.16 (0.9-1.15); Partial Thromboplastin Time 29.5 sec (23.78-33.04); Prothrombin Time 12.3 sec (9.27-12.13)
[2018-04-16] MEDS: PERITONEAL DIALYSIS 4.25% IP SCH ×3 (05:54→22:13)
[2018-04-16 05:59] LABS: Albumin 2.6 g/dL (3.4-5.0); Calcium 7.5 mg/dL (8.5-10.1); Potassium 3.3 mmol/L (3.5-5.1)
[2018-04-16 06:05] LABS: BUN/Creatinine Ratio 6.8; Bilirubin, Total 0.8 mg/dL (0.2-1.0); Total Protein 6.2 g/dL (6.4-8.2)
[2018-04-16] MEDS: ACCU-CHEK COMFORT CURVE STRIP VI SCH ×4 (06:38→22:12)
[2018-04-16] MEDS: LEVOTHYROXINE SODIUM 100 MCG TAB PO SCH (06:38)
[2018-04-16] MEDS: InsuLIN REG 1unit/0.01ml Soln (100units/ml) SC SCH ×4 (06:38→22:13)
[2018-04-16] MEDS: MORPHINE SULFATE 8mg/ml INJ SDV IV PRN ×4 (06:39→22:14)
[2018-04-16] MEDS: ONDANSETRON HCL 4 MG/2 ML VIAL IV PRN (06:39)
[2018-04-16] MEDS ORDERED: LIDOCAINE 2%HCL (LOCAL ANESTH.) INJ 20ML MDV ONE (07:15)
[2018-04-16] MEDS ORDERED: IOHEXOL 350 MG/ML 100ML IJ ONE (07:15)
[2018-04-16] MEDS: SEVELAMER 800 MG TAB PO SCH ×4 (07:32→17:17)
[2018-04-16] MEDS: PRO-STAT 64 30ML PO SCH ×2 (07:32→17:17)
[2018-04-16] MEDS: Novasource Renal 8 Ounces PO SCH ×3 (07:32→18:51)
[2018-04-16] MEDS ORDERED: SODIUM CHL 0.9% 50 ML ONE (08:42)
[2018-04-16] MEDS ORDERED: fentaNYL CITRATE 100 MCG/2 ML VL ONE (08:42)
[2018-04-16] MEDS ORDERED: ANGIOMAX 250 MG VIAL IV ONE (08:42)
[2018-04-16] MEDS ORDERED: MIDAZOLAM HCL 1MG/1ML-2 ML VIAL ONE (08:42)
[2018-04-16] MEDS ORDERED: IODIXANOL 320MG/ML 100ML BTL IV ONE (09:04)
[2018-04-16] MEDS ORDERED: FUROSEMIDE 40 MG/4 ML VIAL ONE (09:08)
[2018-04-16] MEDS: CARVEDILOL 3.125 MG TAB PO SCH ×2 (10:00→11:19)
[2018-04-16] MEDS: DOCUSATE SOD 100 MG CAP PO SCH ×2 (10:00→21:44)
[2018-04-16] MEDS: ASCORBIC ACID 500 MG TAB PO SCH ×2 (10:00→21:43)
[2018-04-16] MEDS ORDERED: VERAPAMIL 2.5MG/ML INJ 2ML VIAL IV ONE (10:08)
[2018-04-16] MEDS ORDERED: NITROGLYCERIN 5MG/ML 10ML VIAL IV ONE (10:09)
[2018-04-16] MEDS: FOLIC ACID 1 MG TAB PO SCH (11:16)
[2018-04-16] MEDS: B-COMPLEX W/ C & FOLIC ACID(NEPHROVITE TAB) PO SCH (11:16)
[2018-04-16] MEDS: PANTOPRAZOLE 40 MG/10 ML VIAL IV SCH (11:16)
[2018-04-16] MEDS: ASPirin-EC 81 mg tab PO SCH (11:16)
[2018-04-16] MEDS: NIFEdipine ER 30 MG TAB PO SCH (11:17)
[2018-04-16] MEDS: CLOPIDOGREL BISULFATE 75 MG TAB PO SCH (11:17)
[2018-04-16 13:00] VITALS: BP 151/61
[2018-04-16] MEDS: HYDROcodone-ACET 5/325MG TAB PO PRN ×3 (14:37→23:26)
[2018-04-16 16:46] VITALS: BP 173/71
[2018-04-16] MEDS: LABETALOL HCL 5 MG/ML ML 20ML VIAL IV PRN (17:16)
[2018-04-16 20:00] VITALS: BP 119/60
[2018-04-16] MEDS: LORazepam 0.5 MG TAB PO PRN (20:49)
[2018-04-16 21:56] VITALS: BP 119/60
[2018-04-16] MEDS: INSULIN LANTUS (GLARGINE) 1 /0.01ml (100units/ml) SC SCH (22:14)
[2018-04-17] VITALS (7 sets, daily range): BP systolic 109–127; BP diastolic 52–65
[2018-04-17] MEDS: HEPARIN SODIUM IP SCH ×6 (01:50→22:04)
[2018-04-17] MEDS: PERITONEAL DIALYSIS 2.5% IP SCH ×3 (01:50→18:22)
[2018-04-17 05:47] LABS: Basophils # (auto) 0 uL; Basophils % (auto) 0.1 % (0.0-2.0); Eosinophils # (auto) 0.2 uL; Eosinophils % (auto) 1.5 % (0.0-7.0); Hematocrit 29.2 % (36.0-46.0); Hemoglobin 9.8 g/dL (12.2-16.2); Lymphocytes # (auto) 0.7 uL; Lymphocytes % (auto) 5.8 % (10.0-50.0); Mean Corpuscular Hemoglobin 31.6 pg (28.0-32.0); Mean Corpuscular Hgb Conc. 33.7 g/dL (32.0-36.0); Mean Corpuscular Volume 93.6 fL (80.0-100.0); Monocytes # (auto) 0.3 uL; Monocytes % (auto) 2.5 % (0.0-12.0); Neutrophils # (auto) 10.6 uL; Neutrophils % (auto) 90.1 % (37.0-80.0); Nucleated Red Blood Cells % 0.1 %; Platelet Count (auto) 190 10^3/uL (140-450); Red Blood Cells 3.12 10^6/uL (4.0-5.20); Red Cell Distribution Width 15.7 % (11.8-14.3); White Blood Cell 11.8 10^3/uL (4.4-10.8)
[2018-04-17 06:03] LABS: Calcium 7.5 mg/dL (8.5-10.1)
[2018-04-17 06:06] LABS: Albumin 2.1 g/dL (3.4-5.0)
[2018-04-17 06:09] LABS: Bilirubin, Total 0.5 mg/dL (0.2-1.0); Total Protein 5.6 g/dL (6.4-8.2)
[2018-04-17 06:15] LABS: Potassium 2.8 mmol/L (3.5-5.1)
[2018-04-17] MEDS: LEVOTHYROXINE SODIUM 100 MCG TAB PO SCH (06:41)
[2018-04-17] MEDS: ACCU-CHEK COMFORT CURVE STRIP VI SCH ×4 (06:48→21:45)
[2018-04-17] MEDS: PERITONEAL DIALYSIS 4.25% IP SCH ×3 (06:48→22:04)
[2018-04-17] MEDS: InsuLIN REG 1unit/0.01ml Soln (100units/ml) SC SCH ×4 (06:57→22:19)
[2018-04-17] MEDS: SEVELAMER 800 MG TAB PO SCH ×3 (08:09→17:33)
[2018-04-17] MEDS: CARVEDILOL 3.125 MG TAB PO SCH ×2 (10:00→21:43)
[2018-04-17] MEDS: Novasource Renal 8 Ounces PO SCH ×2 (10:14→18:27)
[2018-04-17] MEDS: PRO-STAT 64 30ML PO SCH ×2 (10:14→18:27)
[2018-04-17] MEDS: CLOPIDOGREL BISULFATE 75 MG TAB PO SCH (10:15)
[2018-04-17] MEDS: FOLIC ACID 1 MG TAB PO SCH (10:15)
[2018-04-17] MEDS: DOCUSATE SOD 100 MG CAP PO SCH ×2 (10:15→21:43)
[2018-04-17] MEDS: B-COMPLEX W/ C & FOLIC ACID(NEPHROVITE TAB) PO SCH (10:15)
[2018-04-17] MEDS: ASPirin-EC 81 mg tab PO SCH (10:15)
[2018-04-17] MEDS: PANTOPRAZOLE 40 MG/10 ML VIAL IV SCH (10:15)
[2018-04-17] MEDS: ASCORBIC ACID 500 MG TAB PO SCH ×2 (10:15→21:40)
[2018-04-17] MEDS: NIFEdipine ER 30 MG TAB PO SCH (10:20)
[2018-04-17] MEDS: MORPHINE SULFATE 8mg/ml INJ SDV IV PRN ×2 (11:10→20:47)
[2018-04-17] MEDS ORDERED: POTASSIUM CHL 20 Meq TABLET PO ONE ×2 (11:30→18:00)
[2018-04-17] MEDS ORDERED: VANCOMYCIN 750 MG in D5W 5% 250 ML IV ONE (13:00)
[2018-04-17] MEDS: HYDROcodone-ACET 5/325MG TAB PO PRN (15:01)
[2018-04-17] MEDS: LEVOFLOXACIN 250MG 50 ML IV SCH (17:32)
[2018-04-17] MEDS: ALBUTEROL SULF 2.5 MG/0.5ML(0.5%) NEB SOLN NEB PRN (20:12)
[2018-04-17] MEDS: INSULIN LANTUS (GLARGINE) 1 /0.01ml (100units/ml) SC SCH (22:19)
[2018-04-18] MEDS: HYDROcodone-ACET 5/325MG TAB PO PRN ×2 (00:01→13:02)
[2018-04-18] MEDS: LORazepam 0.5 MG TAB PO PRN (00:40)
[2018-04-18] MEDS: HEPARIN SODIUM IP SCH ×6 (01:54→21:39)
[2018-04-18] MEDS: PERITONEAL DIALYSIS 2.5% IP SCH ×3 (01:54→18:04)
[2018-04-18] MEDS: MORPHINE SULFATE 8mg/ml INJ SDV IV PRN ×4 (02:43→22:11)
[2018-04-18 04:59] VITALS: BP 134/61
[2018-04-18 05:51] LABS: Basophils # (auto) 0 uL; Basophils % (auto) 0.2 % (0.0-2.0); Eosinophils # (auto) 0.4 uL; Eosinophils % (auto) 4.9 % (0.0-7.0); Hematocrit 28.7 % (36.0-46.0); Hemoglobin 9.6 g/dL (12.2-16.2); Lymphocytes # (auto) 0.7 uL; Lymphocytes % (auto) 8.5 % (10.0-50.0); Mean Corpuscular Hemoglobin 31.6 pg (28.0-32.0); Mean Corpuscular Hgb Conc. 33.7 g/dL (32.0-36.0); Mean Corpuscular Volume 93.8 fL (80.0-100.0); Monocytes # (auto) 0.2 uL; Monocytes % (auto) 2.5 % (0.0-12.0); Neutrophils # (auto) 7.3 uL; Neutrophils % (auto) 83.9 % (37.0-80.0); Nucleated Red Blood Cells % 0.1 %; Platelet Count (auto) 231 10^3/uL (140-450); Red Blood Cells 3.06 10^6/uL (4.0-5.20); Red Cell Distribution Width 15.8 % (11.8-14.3); White Blood Cell 8.7 10^3/uL (4.4-10.8)
[2018-04-18] MEDS: PERITONEAL DIALYSIS 4.25% IP SCH ×3 (05:52→21:39)
[2018-04-18] MEDS: ALBUTEROL SULF 2.5 MG/0.5ML(0.5%) NEB SOLN NEB PRN ×2 (06:04→19:33)
[2018-04-18 06:06] LABS: BUN/Creatinine Ratio 6.9; Calcium 7.8 mg/dL (8.5-10.1); Potassium 3.4 mmol/L (3.5-5.1)
[2018-04-18 06:09] LABS: Bilirubin, Total 0.4 mg/dL (0.2-1.0); Total Protein 5.8 g/dL (6.4-8.2)
[2018-04-18] MEDS: LEVOTHYROXINE SODIUM 100 MCG TAB PO SCH (06:30)
[2018-04-18] MEDS: ACCU-CHEK COMFORT CURVE STRIP VI SCH ×4 (06:31→22:13)
[2018-04-18] MEDS: InsuLIN REG 1unit/0.01ml Soln (100units/ml) SC SCH ×4 (06:41→22:00)
[2018-04-18 08:00] VITALS: BP 141/63
[2018-04-18] MEDS: PRO-STAT 64 30ML PO SCH ×2 (08:00→18:00)
[2018-04-18] MEDS: Novasource Renal 8 Ounces PO SCH ×2 (08:00→18:00)
[2018-04-18] MEDS: SEVELAMER 800 MG TAB PO SCH ×2 (08:18→12:00)
[2018-04-18 08:56] VITALS: BP 141/63
[2018-04-18] MEDS: PANTOPRAZOLE 40 MG/10 ML VIAL IV SCH (09:35)
[2018-04-18] MEDS: DOCUSATE SOD 100 MG CAP PO SCH ×2 (09:35→22:12)
[2018-04-18] MEDS: ASPirin-EC 81 mg tab PO SCH (09:35)
[2018-04-18] MEDS: CLOPIDOGREL BISULFATE 75 MG TAB PO SCH (09:35)
[2018-04-18] MEDS: B-COMPLEX W/ C & FOLIC ACID(NEPHROVITE TAB) PO SCH (09:35)
[2018-04-18] MEDS: ASCORBIC ACID 500 MG TAB PO SCH ×2 (09:36→22:12)
[2018-04-18] MEDS: CARVEDILOL 3.125 MG TAB PO SCH ×2 (09:36→22:13)
[2018-04-18] MEDS: FOLIC ACID 1 MG TAB PO SCH (09:36)
[2018-04-18] MEDS: NIFEdipine ER 30 MG TAB PO SCH (09:37)
[2018-04-18 13:16] VITALS: BP 144/76
[2018-04-18 16:48] VITALS: BP 141/67
[2018-04-18 22:00] VITALS: BP 142/71
[2018-04-18] MEDS: INSULIN LANTUS (GLARGINE) 1 /0.01ml (100units/ml) SC SCH (22:26)
[2018-04-19] MEDS: PERITONEAL DIALYSIS 2.5% IP SCH ×3 (01:44→17:30)
[2018-04-19] MEDS: HEPARIN SODIUM IP SCH ×6 (01:44→22:36)
[2018-04-19 05:00] VITALS: BP 154/79
[2018-04-19] MEDS: PERITONEAL DIALYSIS 4.25% IP SCH ×3 (05:47→22:36)
[2018-04-19] MEDS: LEVOTHYROXINE SODIUM 100 MCG TAB PO SCH (06:08)
[2018-04-19] MEDS: ACCU-CHEK COMFORT CURVE STRIP VI SCH ×4 (06:08→22:40)
[2018-04-19] MEDS: InsuLIN REG 1unit/0.01ml Soln (100units/ml) SC SCH ×4 (06:13→22:40)
[2018-04-19] MEDS: MORPHINE SULFATE 8mg/ml INJ SDV IV PRN ×4 (06:17→20:43)
[2018-04-19 06:24] LABS: Basophils # (auto) 0 uL; Basophils % (auto) 0.1 % (0.0-2.0); Eosinophils # (auto) 0.2 uL; Hematocrit 29.1 % (36.0-46.0); Hemoglobin 9.8 g/dL (12.2-16.2); Lymphocytes # (auto) 0.8 uL; Lymphocytes % (auto) 6.7 % (10.0-50.0); Mean Corpuscular Hemoglobin 31.5 pg (28.0-32.0); Mean Corpuscular Hgb Conc. 33.6 g/dL (32.0-36.0); Mean Corpuscular Volume 93.8 fL (80.0-100.0); Monocytes # (auto) 0.3 uL; Monocytes % (auto) 2.4 % (0.0-12.0); Neutrophils % (auto) 88.8 % (37.0-80.0); Platelet Count (auto) 274 10^3/uL (140-450); White Blood Cell 12.4 10^3/uL (4.4-10.8)
[2018-04-19 06:41] LABS: BUN/Creatinine Ratio 6.7; Bilirubin, Total 0.3 mg/dL (0.2-1.0); Calcium 7.8 mg/dL (8.5-10.1); Potassium 3.4 mmol/L (3.5-5.1); Total Protein 5.9 g/dL (6.4-8.2)
[2018-04-19] MEDS: PRO-STAT 64 30ML PO SCH ×2 (08:00→18:00)
[2018-04-19] MEDS: Novasource Renal 8 Ounces PO SCH ×2 (08:00→18:00)
[2018-04-19 08:51] VITALS: BP 137/65
[2018-04-19] MEDS: FOLIC ACID 1 MG TAB PO SCH (09:48)
[2018-04-19] MEDS: PANTOPRAZOLE 40 MG/10 ML VIAL IV SCH (09:48)
[2018-04-19] MEDS: DOCUSATE SOD 100 MG CAP PO SCH ×2 (09:49→22:39)
[2018-04-19] MEDS: ASPirin-EC 81 mg tab PO SCH (09:50)
[2018-04-19] MEDS: ASCORBIC ACID 500 MG TAB PO SCH ×2 (09:51→22:39)
[2018-04-19] MEDS: B-COMPLEX W/ C & FOLIC ACID(NEPHROVITE TAB) PO SCH (09:51)
[2018-04-19] MEDS: CLOPIDOGREL BISULFATE 75 MG TAB PO SCH (09:51)
[2018-04-19] MEDS: CARVEDILOL 3.125 MG TAB PO SCH ×2 (10:02→22:41)
[2018-04-19] MEDS: NIFEdipine ER 30 MG TAB PO SCH (10:02)
[2018-04-19] MEDS: ALBUTEROL SULF 2.5 MG/0.5ML(0.5%) NEB SOLN NEB PRN ×2 (12:06→23:19)
[2018-04-19 13:04] VITALS: BP 132/65
[2018-04-19 16:56] VITALS: BP 143/73
[2018-04-19] MEDS: LEVOFLOXACIN 250MG 50 ML IV SCH (17:03)
[2018-04-19 22:00] VITALS: BP 139/62
[2018-04-19] MEDS: INSULIN LANTUS (GLARGINE) 1 /0.01ml (100units/ml) SC SCH (22:40)
[2018-04-19] MEDS: ACETAMINOPHEN 500 MG TAB PO PRN (22:41)
[2018-04-20] MEDS: MORPHINE SULFATE 8mg/ml INJ SDV IV PRN ×4 (01:08→22:20)
[2018-04-20] MEDS: HEPARIN SODIUM IP SCH ×6 (02:23→22:00)
[2018-04-20] MEDS: PERITONEAL DIALYSIS 2.5% IP SCH ×3 (02:23→17:47)
[2018-04-20 05:32] LABS: Albumin 1.7 g/dL (3.4-5.0); BUN/Creatinine Ratio 6.7; Calcium 7.9 mg/dL (8.5-10.1); Potassium 3.6 mmol/L (3.5-5.1)
[2018-04-20 05:35] LABS: Bilirubin, Total 0.6 mg/dL (0.2-1.0); Total Protein 5.6 g/dL (6.4-8.2)
[2018-04-20 05:37] VITALS: BP 102/56
[2018-04-20] MEDS: PERITONEAL DIALYSIS 4.25% IP SCH ×3 (06:00→22:00)
[2018-04-20] MEDS: ACCU-CHEK COMFORT CURVE STRIP VI SCH ×4 (06:18→22:26)
[2018-04-20] MEDS: LEVOTHYROXINE SODIUM 100 MCG TAB PO SCH (06:18)
[2018-04-20] MEDS: InsuLIN REG 1unit/0.01ml Soln (100units/ml) SC SCH ×4 (06:18→22:00)
[2018-04-20] MEDS: Novasource Renal 8 Ounces PO SCH ×2 (08:22→17:47)
[2018-04-20] MEDS: PRO-STAT 64 30ML PO SCH ×2 (08:23→17:47)
[2018-04-20 08:38] VITALS: BP 102/56
[2018-04-20 09:00] VITALS: BP 123/65
[2018-04-20] MEDS: CARVEDILOL 3.125 MG TAB PO SCH ×2 (10:00→22:25)
[2018-04-20 10:33] LABS: Hematocrit 29.1 % (36.0-46.0); Hemoglobin 9.3 g/dL (12.2-16.2); Mean Corpuscular Hemoglobin 30.2 pg (28.0-32.0); Mean Corpuscular Hgb Conc. 31.9 g/dL (32.0-36.0); Mean Corpuscular Volume 94.8 fL (80.0-100.0); Platelet Count (auto) 275 10^3/uL (140-450); Red Blood Cells 3.07 10^6/uL (4.0-5.20); Red Cell Distribution Width 15.9 % (11.8-14.3)
[2018-04-20 10:47] LABS: Band Neutrophils % (manual) 0; Basophils % (manual) 0 (0.0-2.0); Blast Cells 0; Eosinophils % (manual) 0 (0-7); Metamyelocytes % 0; Myelocytes % 0; Promyelocytes % 0; Reactive Lymphocytes 0
[2018-04-20 10:54] LABS: Albumin 1.7 g/dL (3.4-5.0); BUN/Creatinine Ratio 6.9; Bilirubin, Total 0.5 mg/dL (0.2-1.0); Calcium 7.9 mg/dL (8.5-10.1); Potassium 3.6 mmol/L (3.5-5.1); Total Protein 5.4 g/dL (6.4-8.2)
[2018-04-20] MEDS: B-COMPLEX W/ C & FOLIC ACID(NEPHROVITE TAB) PO SCH (10:55)
[2018-04-20] MEDS: CLOPIDOGREL BISULFATE 75 MG TAB PO SCH (10:55)
[2018-04-20] MEDS: DOCUSATE SOD 100 MG CAP PO SCH ×2 (10:55→22:24)
[2018-04-20] MEDS: PANTOPRAZOLE 40 MG/10 ML VIAL IV SCH (10:55)
[2018-04-20] MEDS: ASCORBIC ACID 500 MG TAB PO SCH ×2 (10:55→22:25)
[2018-04-20] MEDS: FOLIC ACID 1 MG TAB PO SCH (10:56)
[2018-04-20] MEDS: ASPirin-EC 81 mg tab PO SCH (10:56)
[2018-04-20] MEDS: NIFEdipine ER 30 MG TAB PO SCH (10:57)
[2018-04-20 12:25] LABS: Lymphocytes % (manual) 3 (10.0-50.0); Monocytes % (manual) 2 (0-12)
[2018-04-20] MEDS: LACTULOSE 20Gm/30ML SOLN PO SCH ×2 (12:28→17:47)
[2018-04-20 13:00] VITALS: BP 139/73
[2018-04-20 13:42] LABS: Hematocrit 31.5 % (36.0-46.0); Hemoglobin 10.2 g/dL (12.2-16.2); Mean Corpuscular Hemoglobin 30.6 pg (28.0-32.0); Mean Corpuscular Hgb Conc. 32.5 g/dL (32.0-36.0); Mean Corpuscular Volume 94.1 fL (80.0-100.0); Platelet Count (auto) 322 10^3/uL (140-450); Red Blood Cells 3.35 10^6/uL (4.0-5.20)
[2018-04-20 13:44] LABS: White Blood Cell 38.3 10^3/uL (4.4-10.8)
[2018-04-20 13:45] LABS: Band Neutrophils % (manual) 0; Basophils % (manual) 0 (0.0-2.0); Blast Cells 0; Eosinophils % (manual) 0 (0-7); Metamyelocytes % 0; Myelocytes % 0; Promyelocytes % 0; Reactive Lymphocytes 0
[2018-04-20] MEDS ORDERED: MEROPENEM 1gm/20ml IVPUSH 20 ML IV ONE (14:00)
[2018-04-20 16:17] LABS: Lymphocytes % (manual) 4 (10.0-50.0); Monocytes % (manual) 4 (0-12)
[2018-04-20 16:59] VITALS: BP 123/57
[2018-04-20] MEDS: ALBUTEROL SULF 2.5 MG/0.5ML(0.5%) NEB SOLN NEB PRN (19:43)
[2018-04-20 22:00] VITALS: BP 138/64
[2018-04-20] MEDS: INSULIN LANTUS (GLARGINE) 1 /0.01ml (100units/ml) SC SCH (22:00)
[2018-04-20] MEDS: MEROPENEM 500mg/10ml IVPUSH 10 ML IV SCH (22:24)
[2018-04-21] MEDS: LACTULOSE 20Gm/30ML SOLN PO SCH ×4 (00:27→18:00)
[2018-04-21] MEDS: HEPARIN SODIUM IP SCH ×7 (01:35→22:06)
[2018-04-21] MEDS: PERITONEAL DIALYSIS 2.5% IP SCH ×4 (01:35→18:44)
[2018-04-21] MEDS: MORPHINE SULFATE 8mg/ml INJ SDV IV PRN (03:18)
[2018-04-21 05:01] VITALS: BP 113/56
[2018-04-21 06:36] LABS: Basophils # (auto) 0 uL; Basophils % (auto) 0.1 % (0.0-2.0); Eosinophils # (auto) 0.2 uL; Hematocrit 26.4 % (36.0-46.0); Lymphocytes # (auto) 1.3 uL; Mean Corpuscular Volume 94.4 fL (80.0-100.0)
[2018-04-21 06:38] LABS: Eosinophils % (auto) 0.5 % (0.0-7.0); Hemoglobin 8.7 g/dL (12.2-16.2); Lymphocytes % (auto) 3.6 % (10.0-50.0); Mean Corpuscular Hgb Conc. 32.8 g/dL (32.0-36.0); Monocytes # (auto) 1.2 uL; Monocytes % (auto) 3.2 % (0.0-12.0); Neutrophils # (auto) 33.6 uL; Neutrophils % (auto) 92.6 % (37.0-80.0); Platelet Count (auto) 299 10^3/uL (140-450); Red Blood Cells 2.79 10^6/uL (4.0-5.20); Red Cell Distribution Width 16.2 % (11.8-14.3)
[2018-04-21] MEDS: LEVOTHYROXINE SODIUM 100 MCG TAB PO SCH (06:42)
[2018-04-21] MEDS: ACCU-CHEK COMFORT CURVE STRIP VI SCH ×4 (06:42→21:39)
[2018-04-21] MEDS: InsuLIN REG 1unit/0.01ml Soln (100units/ml) SC SCH ×4 (06:42→21:53)
[2018-04-21 06:43] LABS: White Blood Cell 36.3 10^3/uL (4.4-10.8)
[2018-04-21] MEDS: PERITONEAL DIALYSIS 4.25% IP SCH ×3 (06:43→22:06)
[2018-04-21 06:52] LABS: Albumin 1.7 g/dL (3.4-5.0); Bilirubin, Total 0.4 mg/dL (0.2-1.0); Calcium 8.2 mg/dL (8.5-10.1); Potassium 3.4 mmol/L (3.5-5.1); Total Protein 5.7 g/dL (6.4-8.2)
[2018-04-21 08:00] VITALS: BP 132/88
[2018-04-21] MEDS: PRO-STAT 64 30ML PO SCH ×2 (08:00→18:12)
[2018-04-21] MEDS: Novasource Renal 8 Ounces PO SCH ×2 (08:00→18:12)
[2018-04-21 08:46] VITALS: BP 132/88
[2018-04-21] MEDS: ALBUTEROL SULF 2.5 MG/0.5ML(0.5%) NEB SOLN NEB PRN ×2 (09:54→18:53)
[2018-04-21] MEDS: CARVEDILOL 3.125 MG TAB PO SCH ×2 (10:40→22:00)
[2018-04-21] MEDS: B-COMPLEX W/ C & FOLIC ACID(NEPHROVITE TAB) PO SCH (10:40)
[2018-04-21] MEDS: CLOPIDOGREL BISULFATE 75 MG TAB PO SCH (10:41)
[2018-04-21] MEDS: FOLIC ACID 1 MG TAB PO SCH (10:41)
[2018-04-21] MEDS: NIFEdipine ER 30 MG TAB PO SCH (10:41)
[2018-04-21] MEDS: ASCORBIC ACID 500 MG TAB PO SCH ×2 (10:42→21:38)
[2018-04-21] MEDS: ASPirin-EC 81 mg tab PO SCH (10:42)
[2018-04-21] MEDS: PANTOPRAZOLE 40 MG/10 ML VIAL IV SCH (10:42)
[2018-04-21] MEDS: DOCUSATE SOD 100 MG CAP PO SCH ×2 (10:44→21:38)
[2018-04-21] MEDS: MEROPENEM 500mg/10ml IVPUSH 10 ML IV SCH ×2 (11:09→21:37)
[2018-04-21] MEDS: ACETAMINOPHEN 500 MG TAB PO PRN ×2 (11:17→21:38)
[2018-04-21 12:30] VITALS: BP 100/57
[2018-04-21] MEDS: metroNIDAZOLE 250MG/50 ML 50 ML IV SCH ×2 (15:14→21:36)
[2018-04-21 17:00] VITALS: BP 139/67
[2018-04-21] MEDS: MORPHINE SULFATE 10 MG/ML INJ 1ML SDV IV PRN ×2 (18:45→22:21)
[2018-04-21] MEDS: INSULIN LANTUS (GLARGINE) 1 /0.01ml (100units/ml) SC SCH (21:38)
[2018-04-21] MEDS: LORazepam 0.5 MG TAB PO PRN (22:00)
[2018-04-21 22:02] VITALS: BP 101/39
[2018-04-22] MEDS: LACTULOSE 20Gm/30ML SOLN PO SCH ×5 (01:03→23:32)
[2018-04-22] MEDS: PERITONEAL DIALYSIS 2.5% IP SCH ×3 (02:19→18:39)
[2018-04-22] MEDS: HEPARIN SODIUM IP SCH ×6 (02:19→22:04)
[2018-04-22] MEDS: MORPHINE SULFATE 10 MG/ML INJ 1ML SDV IV PRN ×5 (03:03→23:32)
[2018-04-22 04:46] VITALS: BP 113/66
[2018-04-22] MEDS: ACCU-CHEK COMFORT CURVE STRIP VI SCH ×4 (05:39→21:51)
[2018-04-22] MEDS: LEVOTHYROXINE SODIUM 100 MCG TAB PO SCH (05:39)
[2018-04-22] MEDS: metroNIDAZOLE 250MG/50 ML 50 ML IV SCH ×3 (05:39→22:20)
[2018-04-22] MEDS: InsuLIN REG 1unit/0.01ml Soln (100units/ml) SC SCH ×4 (05:40→21:50)
[2018-04-22] MEDS: ACETAMINOPHEN 500 MG TAB PO PRN ×2 (05:46→20:17)
[2018-04-22] MEDS: PERITONEAL DIALYSIS 4.25% IP SCH ×3 (05:50→22:04)
[2018-04-22 07:00] LABS: Basophils # (auto) 0 uL; Basophils % (auto) 0.1 % (0.0-2.0); Eosinophils # (auto) 0.5 uL; Hemoglobin 8.2 g/dL (12.2-16.2); Lymphocytes # (auto) 0.6 uL; Mean Corpuscular Hemoglobin 30.9 pg (28.0-32.0); Monocytes # (auto) 0.5 uL; Red Blood Cells 2.65 10^6/uL (4.0-5.20)
[2018-04-22 07:03] LABS: Eosinophils % (auto) 2.6 % (0.0-7.0); Hematocrit 25.1 % (36.0-46.0); Lymphocytes % (auto) 3.5 % (10.0-50.0); Mean Corpuscular Hgb Conc. 32.6 g/dL (32.0-36.0); Mean Corpuscular Volume 94.7 fL (80.0-100.0); Monocytes % (auto) 3.1 % (0.0-12.0); Neutrophils % (auto) 90.7 % (37.0-80.0); Platelet Count (auto) 331 10^3/uL (140-450); Red Cell Distribution Width 16.3 % (11.8-14.3); White Blood Cell 17.7 10^3/uL (4.4-10.8)
[2018-04-22 07:24] LABS: Albumin 1.5 g/dL (3.4-5.0); Calcium 7.5 mg/dL (8.5-10.1)
[2018-04-22 07:28] LABS: BUN/Creatinine Ratio 6.8
[2018-04-22 07:30] LABS: Bilirubin, Total 0.4 mg/dL (0.2-1.0); Total Protein 5.7 g/dL (6.4-8.2)
[2018-04-22 07:47] LABS: Potassium 2.8 mmol/L (3.5-5.1)
[2018-04-22 08:00] VITALS: BP 124/57
[2018-04-22] MEDS: PRO-STAT 64 30ML PO SCH ×2 (08:00→18:00)
[2018-04-22 08:21] VITALS: BP 124/57
[2018-04-22] MEDS: PANTOPRAZOLE 40 MG/10 ML VIAL IV SCH (10:20)
[2018-04-22] MEDS: DOCUSATE SOD 100 MG CAP PO SCH ×2 (10:21→21:46)
[2018-04-22] MEDS: ASPirin-EC 81 mg tab PO SCH (10:22)
[2018-04-22] MEDS: B-COMPLEX W/ C & FOLIC ACID(NEPHROVITE TAB) PO SCH (10:22)
[2018-04-22] MEDS: NIFEdipine ER 30 MG TAB PO SCH (10:22)
[2018-04-22] MEDS: ASCORBIC ACID 500 MG TAB PO SCH ×2 (10:22→21:46)
[2018-04-22] MEDS: CLOPIDOGREL BISULFATE 75 MG TAB PO SCH (10:22)
[2018-04-22] MEDS: FOLIC ACID 1 MG TAB PO SCH (10:22)
[2018-04-22] MEDS: CARVEDILOL 3.125 MG TAB PO SCH ×2 (10:23→21:50)
[2018-04-22] MEDS: MEROPENEM 500mg/10ml IVPUSH 10 ML IV SCH ×2 (10:32→22:20)
[2018-04-22] MEDS: Novasource Renal 8 Ounces PO SCH ×2 (10:35→18:38)
[2018-04-22] MEDS ORDERED: POTASSIUM CHL 20 Meq TABLET PO ONE ×2 (10:45→18:00)
[2018-04-22 11:46] VITALS: BP 111/48
[2018-04-22] MEDS ORDERED: SODIUM CHLORIDE 0.9 % NEB SOLN 3ML NEB ONE (11:50)
[2018-04-22] MEDS: ALBUTEROL SULF 2.5 MG/0.5ML(0.5%) NEB SOLN NEB PRN (12:11)
[2018-04-22] MEDS: ONDANSETRON HCL 4 MG/2 ML VIAL IV PRN (14:17)
[2018-04-22 16:57] VITALS: BP 138/68
[2018-04-22] MEDS: INSULIN LANTUS (GLARGINE) 1 /0.01ml (100units/ml) SC SCH (21:51)
[2018-04-22 22:00] VITALS: BP 134/66
[2018-04-23] MEDS: HEPARIN SODIUM IP SCH ×6 (02:04→22:00)
[2018-04-23] MEDS: PERITONEAL DIALYSIS 2.5% IP SCH ×3 (02:04→18:28)
[2018-04-23] MEDS: MORPHINE SULFATE 10 MG/ML INJ 1ML SDV IV PRN ×2 (04:06→16:20)
[2018-04-23 05:00] VITALS: BP 138/72
[2018-04-23] MEDS: PERITONEAL DIALYSIS 4.25% IP SCH ×3 (06:00→22:00)
[2018-04-23] MEDS: LACTULOSE 20Gm/30ML SOLN PO SCH ×2 (06:00→12:00)
[2018-04-23 06:12] LABS: Basophils # (auto) 0 uL; Basophils % (auto) 0.3 % (0.0-2.0); Eosinophils # (auto) 0.6 uL; Eosinophils % (auto) 5.9 % (0.0-7.0); Hemoglobin 9.9 g/dL (12.2-16.2); Lymphocytes # (auto) 0.7 uL; Lymphocytes % (auto) 6.2 % (10.0-50.0); Mean Corpuscular Hemoglobin 31.2 pg (28.0-32.0); Mean Corpuscular Hgb Conc. 33.1 g/dL (32.0-36.0); Mean Corpuscular Volume 94.3 fL (80.0-100.0); Monocytes # (auto) 0.5 uL; Monocytes % (auto) 4.5 % (0.0-12.0); Neutrophils # (auto) 9.1 uL; Neutrophils % (auto) 83.1 % (37.0-80.0); Platelet Count (auto) 375 10^3/uL (140-450); Red Blood Cells 3.18 10^6/uL (4.0-5.20); Red Cell Distribution Width 15.9 % (11.8-14.3); White Blood Cell 10.9 10^3/uL (4.4-10.8)
[2018-04-23] MEDS: metroNIDAZOLE 250MG/50 ML 50 ML IV SCH ×4 (06:16→22:35)
[2018-04-23] MEDS: LEVOTHYROXINE SODIUM 100 MCG TAB PO SCH (06:16)
[2018-04-23 06:23] LABS: Calcium 8.1 mg/dL (8.5-10.1); Potassium 3.8 mmol/L (3.5-5.1)
[2018-04-23 06:25] LABS: Albumin 1.7 g/dL (3.4-5.0); BUN/Creatinine Ratio 6.6
[2018-04-23 06:28] LABS: Bilirubin, Total 0.4 mg/dL (0.2-1.0); Total Protein 6.4 g/dL (6.4-8.2)
[2018-04-23] MEDS: InsuLIN REG 1unit/0.01ml Soln (100units/ml) SC SCH ×4 (06:30→22:00)
[2018-04-23] MEDS: ACCU-CHEK COMFORT CURVE STRIP VI SCH ×4 (06:30→22:00)
[2018-04-23] MEDS: ACETAMINOPHEN 500 MG TAB PO PRN ×2 (07:05→23:44)
[2018-04-23 08:06] VITALS: BP 135/77
[2018-04-23] MEDS: PRO-STAT 64 30ML PO SCH ×2 (08:26→18:13)
[2018-04-23] MEDS: Novasource Renal 8 Ounces PO SCH ×2 (08:26→18:13)
[2018-04-23] MEDS: PANTOPRAZOLE 40 MG/10 ML VIAL IV SCH (09:36)
[2018-04-23] MEDS: CARVEDILOL 3.125 MG TAB PO SCH ×2 (09:36→22:01)
[2018-04-23] MEDS: CLOPIDOGREL BISULFATE 75 MG TAB PO SCH (09:37)
[2018-04-23] MEDS: FOLIC ACID 1 MG TAB PO SCH (09:37)
[2018-04-23] MEDS: B-COMPLEX W/ C & FOLIC ACID(NEPHROVITE TAB) PO SCH (09:37)
[2018-04-23] MEDS: ASPirin-EC 81 mg tab PO SCH (09:37)
[2018-04-23] MEDS: DOCUSATE SOD 100 MG CAP PO SCH ×2 (09:37→21:56)
[2018-04-23] MEDS: NIFEdipine ER 30 MG TAB PO SCH (09:38)
[2018-04-23] MEDS: MEROPENEM 500mg/10ml IVPUSH 10 ML IV SCH ×2 (09:38→22:35)
[2018-04-23] MEDS: ASCORBIC ACID 500 MG TAB PO SCH ×2 (09:38→21:59)
[2018-04-23 12:00] VITALS: BP 125/67
[2018-04-23 16:13] VITALS: BP 156/70
[2018-04-23] MEDS ORDERED: VANCOMYCIN 500 MG in D5W 5% 100 ML IV ONE (18:00)
[2018-04-23 22:00] VITALS: BP 148/65
[2018-04-23] MEDS ORDERED: LACTULOSE 20Gm/30ML SOLN PO SCH (22:00)
[2018-04-23] MEDS: INSULIN LANTUS (GLARGINE) 1 /0.01ml (100units/ml) SC SCH (22:00)
[2018-04-24] MEDS: MORPHINE SULFATE 10 MG/ML INJ 1ML SDV IV PRN (00:50)
[2018-04-24] MEDS: ALBUTEROL SULF 2.5 MG/0.5ML(0.5%) NEB SOLN NEB PRN ×2 (01:17→14:01)
[2018-04-24] MEDS: PERITONEAL DIALYSIS 2.5% IP SCH ×3 (02:23→18:14)
[2018-04-24] MEDS: HEPARIN SODIUM IP SCH ×6 (02:23→22:18)
[2018-04-24 05:00] VITALS: BP 152/69
[2018-04-24] MEDS: PERITONEAL DIALYSIS 4.25% IP SCH ×3 (05:42→22:18)
[2018-04-24] MEDS: metroNIDAZOLE 250MG/50 ML 50 ML IV SCH ×3 (05:49→21:19)
[2018-04-24 06:13] LABS: Basophils # (auto) 0 uL; Basophils % (auto) 0.2 % (0.0-2.0); Eosinophils # (auto) 0.1 uL; Eosinophils % (auto) 0.7 % (0.0-7.0); Hematocrit 27.4 % (36.0-46.0); Lymphocytes % (auto) 6.2 % (10.0-50.0); Mean Corpuscular Hemoglobin 31.1 pg (28.0-32.0); Mean Corpuscular Volume 94.2 fL (80.0-100.0); Monocytes # (auto) 0.5 uL; Monocytes % (auto) 3.4 % (0.0-12.0); Neutrophils # (auto) 14.3 uL; Neutrophils % (auto) 89.5 % (37.0-80.0); Platelet Count (auto) 334 10^3/uL (140-450); Red Blood Cells 2.91 10^6/uL (4.0-5.20); Red Cell Distribution Width 15.8 % (11.8-14.3)
[2018-04-24] MEDS: LEVOTHYROXINE SODIUM 100 MCG TAB PO SCH (06:13)
[2018-04-24] MEDS: InsuLIN REG 1unit/0.01ml Soln (100units/ml) SC SCH ×4 (06:19→21:11)
[2018-04-24] MEDS: ACCU-CHEK COMFORT CURVE STRIP VI SCH ×4 (06:21→21:12)
[2018-04-24 07:32] LABS: Albumin 1.5 g/dL (3.4-5.0); Calcium 7.7 mg/dL (8.5-10.1); Potassium 3.5 mmol/L (3.5-5.1)
[2018-04-24 07:34] LABS: BUN/Creatinine Ratio 6.4
[2018-04-24 07:36] LABS: Bilirubin, Total 0.3 mg/dL (0.2-1.0); Total Protein 5.7 g/dL (6.4-8.2)
[2018-04-24] MEDS: PRO-STAT 64 30ML PO SCH ×2 (08:00→18:00)
[2018-04-24] MEDS: Novasource Renal 8 Ounces PO SCH ×2 (08:00→18:39)
[2018-04-24 09:00] VITALS: BP 157/70
[2018-04-24] MEDS: DOCUSATE SOD 100 MG CAP PO SCH ×2 (10:00→21:19)
[2018-04-24] MEDS ORDERED: MORPHINE SULF INJ 2 MG/ML SYRINGE 1ML ONE ×3 (10:20→22:39)
[2018-04-24] MEDS: ONDANSETRON HCL 4 MG/2 ML VIAL IV PRN ×3 (10:28→22:56)
[2018-04-24] MEDS: MORPHINE SULF INJ 2 MG/ML SYRINGE 1ML IV PRN ×2 (10:29→16:33)
[2018-04-24] MEDS: B-COMPLEX W/ C & FOLIC ACID(NEPHROVITE TAB) PO SCH (10:29)
[2018-04-24] MEDS: CLOPIDOGREL BISULFATE 75 MG TAB PO SCH (10:29)
[2018-04-24] MEDS: PANTOPRAZOLE 40 MG/10 ML VIAL IV SCH (10:29)
[2018-04-24] MEDS: ASCORBIC ACID 500 MG TAB PO SCH ×2 (10:30→21:18)
[2018-04-24] MEDS: ASPirin-EC 81 mg tab PO SCH (10:30)
[2018-04-24] MEDS: NIFEdipine ER 30 MG TAB PO SCH (10:30)
[2018-04-24] MEDS: FOLIC ACID 1 MG TAB PO SCH (10:30)
[2018-04-24] MEDS: CARVEDILOL 3.125 MG TAB PO SCH ×2 (10:31→21:18)
[2018-04-24] MEDS: MEROPENEM 500mg/10ml IVPUSH 10 ML IV SCH ×2 (11:01→21:21)
[2018-04-24 13:00] VITALS: BP 146/73
[2018-04-24] MEDS: ACETAMINOPHEN 500 MG TAB PO PRN ×2 (14:32→19:52)
[2018-04-24 17:00] VITALS: BP 112/54
[2018-04-24 21:46] VITALS: BP 123/61
[2018-04-24 22:00] VITALS: BP 123/61
[2018-04-24] MEDS: INSULIN LANTUS (GLARGINE) 1 /0.01ml (100units/ml) SC SCH (22:00)
[2018-04-25] MEDS: HEPARIN SODIUM IP SCH ×4 (02:12→14:00)
[2018-04-25] MEDS: PERITONEAL DIALYSIS 2.5% IP SCH ×2 (02:12→10:49)
[2018-04-25] MEDS: ACETAMINOPHEN 500 MG TAB PO PRN ×2 (03:03→10:50)
[2018-04-25 04:46] VITALS: BP 136/59
[2018-04-25] MEDS: metroNIDAZOLE 250MG/50 ML 50 ML IV SCH ×2 (05:16→14:00)
[2018-04-25] MEDS: PERITONEAL DIALYSIS 4.25% IP SCH ×2 (05:40→14:00)
[2018-04-25] MEDS: ONDANSETRON HCL 4 MG/2 ML VIAL IV PRN (05:41)
[2018-04-25] MEDS: MORPHINE SULF INJ 2 MG/ML SYRINGE 1ML IV PRN (05:42)
[2018-04-25 05:51] LABS: Basophils # (auto) 0 uL; Basophils % (auto) 0.2 % (0.0-2.0); Eosinophils # (auto) 0.4 uL; Eosinophils % (auto) 3.1 % (0.0-7.0); Hematocrit 27.1 % (36.0-46.0); Hemoglobin 9.1 g/dL (12.2-16.2); Lymphocytes # (auto) 0.8 uL; Lymphocytes % (auto) 6.9 % (10.0-50.0); Mean Corpuscular Hemoglobin 31.6 pg (28.0-32.0); Mean Corpuscular Hgb Conc. 33.7 g/dL (32.0-36.0); Mean Corpuscular Volume 93.7 fL (80.0-100.0); Monocytes # (auto) 0.4 uL; Monocytes % (auto) 3.4 % (0.0-12.0); Neutrophils # (auto) 10.3 uL; Neutrophils % (auto) 86.4 % (37.0-80.0); Platelet Count (auto) 334 10^3/uL (140-450); Red Blood Cells 2.89 10^6/uL (4.0-5.20); Red Cell Distribution Width 15.9 % (11.8-14.3); White Blood Cell 11.9 10^3/uL (4.4-10.8)
[2018-04-25] MEDS: ACCU-CHEK COMFORT CURVE STRIP VI SCH ×3 (05:55→17:00)
[2018-04-25] MEDS: LEVOTHYROXINE SODIUM 100 MCG TAB PO SCH (06:01)
[2018-04-25] MEDS: InsuLIN REG 1unit/0.01ml Soln (100units/ml) SC SCH ×3 (06:02→17:00)
[2018-04-25 06:08] LABS: Albumin 1.3 g/dL (3.4-5.0); BUN/Creatinine Ratio 6.4; Bilirubin, Total 0.4 mg/dL (0.2-1.0); Calcium 6.5 mg/dL (8.5-10.1); Potassium 3.1 mmol/L (3.5-5.1); Total Protein 5.6 g/dL (6.4-8.2)
[2018-04-25] MEDS: PRO-STAT 64 30ML PO SCH (08:00)
[2018-04-25] MEDS: Novasource Renal 8 Ounces PO SCH (08:00)
[2018-04-25 08:42] VITALS: BP 155/69
[2018-04-25] MEDS: DOCUSATE SOD 100 MG CAP PO SCH (10:00)
[2018-04-25] MEDS: PANTOPRAZOLE 40 MG/10 ML VIAL IV SCH (10:52)
[2018-04-25] MEDS: MEROPENEM 500mg/10ml IVPUSH 10 ML IV SCH (10:52)
[2018-04-25] MEDS: CLOPIDOGREL BISULFATE 75 MG TAB PO SCH (10:53)
[2018-04-25] MEDS: ASCORBIC ACID 500 MG TAB PO SCH (10:53)
[2018-04-25] MEDS: ASPirin-EC 81 mg tab PO SCH (10:53)
[2018-04-25] MEDS: FOLIC ACID 1 MG TAB PO SCH (10:54)
[2018-04-25] MEDS: B-COMPLEX W/ C & FOLIC ACID(NEPHROVITE TAB) PO SCH (10:54)
[2018-04-25] MEDS: CARVEDILOL 3.125 MG TAB PO SCH (10:54)
[2018-04-25] MEDS: NIFEdipine ER 30 MG TAB PO SCH (10:55)
[2018-04-25 12:37] VITALS: BP 139/67
[2018-04-25] MEDS ORDERED: POTASSIUM CHL 20 Meq TABLET PO ONE (12:45)
== END 2018-04-25 17:18 | disposition home or self-care (01) | DRG 710 ==
LOC: EDBD 19:42 → ER 19:42 → TELE 19:43 → CENTRAL 04-11 → TELE-CENTR 04-12 00:11
PROVIDERS: ADMIT Nurse Practitioner Family; ATTEND Internal Medicine
PROC: 3E1M39Z Irrigation of Peritoneal Cavity using Dialysate, Percutaneous Approach (ICD-10-PCS; 2018-04-13)
PROC: 30233N1 Transfusion of Nonautologous Red Blood Cells into Peripheral Vein, Percutaneous Approach (ICD-10-PCS; 2018-04-13)
PROC: B41G1ZZ Fluoroscopy of Left Lower Extremity Arteries using Low Osmolar Contrast (ICD-10-PCS; principal; 2018-04-16)
PROC: 047R3ZZ Dilation of Right Posterior Tibial Artery, Percutaneous Approach (ICD-10-PCS; 2018-04-16)
PROC: B41F1ZZ Fluoroscopy of Right Lower Extremity Arteries using Low Osmolar Contrast (ICD-10-PCS; 2018-04-16)
PROC: 047T3ZZ Dilation of Right Peroneal Artery, Percutaneous Approach (ICD-10-PCS; 2018-04-16)
PROC: 04CM3ZZ Extirpation of Matter from Right Popliteal Artery, Percutaneous Approach (ICD-10-PCS; 2018-04-16)
PROC: 047M3ZZ Dilation of Right Popliteal Artery, Percutaneous Approach (ICD-10-PCS; 2018-04-16)
DX: A41.9 Sepsis, unspecified organism (principal); E43 Unspecified severe protein-calorie malnutrition; I13.2 Hypertensive heart and chronic kidney disease with heart failure and with stage 5 chronic kidney disease, or end stage renal disease; K65.9 Peritonitis, unspecified; N18.6 End stage renal disease; N25.81 Secondary hyperparathyroidism of renal origin; I96 Gangrene, not elsewhere classified; E11.52 Type 2 diabetes mellitus with diabetic peripheral angiopathy with gangrene; R18.8 Other ascites; E11.22 Type 2 diabetes mellitus with diabetic chronic kidney disease; L97.519 Non-pressure chronic ulcer of other part of right foot with unspecified severity; K74.60 Unspecified cirrhosis of liver; K86.1 Other chronic pancreatitis; E87.6 Hypokalemia; F41.9 Anxiety disorder, unspecified; K59.03 Drug induced constipation; I70.201 Unspecified atherosclerosis of native arteries of extremities, right leg; T40.605A Adverse effect of unspecified narcotics, initial encounter; F32.9 Major depressive disorder, single episode, unspecified; R74.8 Abnormal levels of other serum enzymes; D63.8 Anemia in other chronic diseases classified elsewhere; K29.70 Gastritis, unspecified, without bleeding; E11.621 Type 2 diabetes mellitus with foot ulcer; E03.9 Hypothyroidism, unspecified; Z68.28 Body mass index [BMI] 28.0-28.9, adult; Z79.4 Long term (current) use of insulin; Z79.899 Other long term (current) drug therapy; Z99.2 Dependence on renal dialysis; Z80.1 Family history of malignant neoplasm of trachea, bronchus and lung; Z80.3 Family history of malignant neoplasm of breast; Z80.41 Family history of malignant neoplasm of ovary; Z80.8 Family history of malignant neoplasm of other organs or systems; Z81.8 Family history of other mental and behavioral disorders; Z82.0 Family history of epilepsy and other diseases of the nervous system; Z82.49 Family history of ischemic heart disease and other diseases of the circulatory system; Z82.3 Family history of stroke; Z82.5 Family history of asthma and other chronic lower respiratory diseases; Z82.62 Family history of osteoporosis; Z83.3 Family history of diabetes mellitus; Z86.73 Personal history of transient ischemic attack (TIA), and cerebral infarction without residual deficits; Z89.512 Acquired absence of left leg below knee; Z91.040 Latex allergy status; Z88.0 Allergy status to penicillin; E78.5 Hyperlipidemia, unspecified; I25.2 Old myocardial infarction; I50.9 Heart failure, unspecified; J44.9 Chronic obstructive pulmonary disease, unspecified; L97.529 Non-pressure chronic ulcer of other part of left foot with unspecified severity; B95.62 Methicillin resistant Staphylococcus aureus infection as the cause of diseases classified elsewhere
CPT/HCPCS: 34203; 36415; 37228; 71045; 73620; 74176; 80053; 80202; 82140; 82150; 82962; 83036; 83605; 83690; 83735; 84443; 84484; 84702; 85007; 85025; 85027; 85610; 85730; 86850; 86900; 86901; 86920; 87040; 87081; 87205; 89051; 93005; 93926; 94640; 94660; 94761; 96365; 96375; 96379; 97110; 97116; 97163; 97530; 99152; 99153; C1769; C9113; J0885; J1642; J1815; J2250; J2270; J2405; J3480; J3490; J7060; P9047; Q9967

== ENCOUNTER 2018-08-03 12:13 | Inpatient (IN) | payer MEDICAID ==
[~2018-08-03] VITALS: Ht 157.5 cm; Wt 62.6 kg
[2018-08-03] VITALS (9 sets, daily range): BP systolic 102–155; BP diastolic 55–95
[2018-08-03] MEDS ORDERED: SODIUM BICARBONATE 8.4 % INJ 50ML VIAL IV ONE ×4 (12:26→14:00)
[2018-08-03] MEDS ORDERED: ETOMIDATE (2MG/ML) 20ML VIAL IV ONE (12:26)
[2018-08-03] MEDS ORDERED: SODIUM CHLORIDE 0.9% 1,000 ML IV ONE (12:27)
[2018-08-03] MEDS ORDERED: SUCCINYLCHOLINE CHLORIDE 20 MG/ML 10ML VIAL IV ONE (12:28)
[2018-08-03] MEDS ORDERED: MIDAZOLAM DRIP 50 mg/50mL 50 ML IV ONE (12:28)
[2018-08-03] MEDS ORDERED: SODIUM BICARBONATE 8.4% INJ 50ML SYRINGE ONE ×2 (12:48→14:01)
[2018-08-03 12:49] LABS: Hematocrit 23.2 % (36.0-46.0); Hemoglobin 7.2 g/dL (12.2-16.2); Mean Corpuscular Hemoglobin 32.9 pg (28.0-32.0); Mean Corpuscular Hgb Conc. 31.1 g/dL (32.0-36.0); Mean Corpuscular Volume 105.6 fL (80.0-100.0); Platelet Count (auto) 385 10^3/uL (140-450); White Blood Cell 18.1 10^3/uL (4.4-10.8)
[2018-08-03 12:56] LABS: Red Cell Distribution Width 22.3 % (11.8-14.3)
[2018-08-03 12:57] LABS: Blast Cells 0; Promyelocytes % 0; Reactive Lymphocytes 0
[2018-08-03] MEDS ORDERED: PIPERACILLIN-TAZOB 3.375GM 100 ML IV ONE (13:00)
[2018-08-03 13:04] LABS: Lactic Acid w/Reflex 3.7 mmol/L (0.4-2.0)
[2018-08-03 13:09] LABS: INR 0.93 (0.9-1.15); Partial Thromboplastin Time 27.7 sec (23.78-33.04)
[2018-08-03] MEDS ORDERED: ATROPINE SULF 1 MG/10ml SYR IV ONE (13:15)
[2018-08-03 13:16] LABS: Band Neutrophils % (manual) 3; Basophils % (manual) 1 (0.0-2.0); Eosinophils % (manual) 2 (0-7); Lymphocytes % (manual) 29 (10.0-50.0); Metamyelocytes % 1; Monocytes % (manual) 6 (0-12); Myelocytes % 1
[2018-08-03 13:45] LABS: Alanine Aminotransferase 34 U/L (13-56); Alkaline Phosphatase 388 U/L (45-117); Anion Gap 8 (5-15); Aspartate Aminotransferase 31 U/L (15-37); BUN/Creatinine Ratio 25.5; Bilirubin, Total 0.4 mg/dL (0.2-1.0); Blood Alcohol < 3.0 mg/dL (0-5); Calcium 9.6 mg/dL (8.5-10.1); Carbon Dioxide 23 mmol/L (21-32); Chloride 85 mmol/L (98-107); GFR African American 15 mL/min; GFR Non-African American 12 mL/min; Magnesium 3.3 mg/dL (1.6-2.6); Total Protein 7.9 g/dL (6.4-8.2)
[2018-08-03 13:48] LABS: Blood Urea Nitrogen 107 mg/dL (7-18); Glucose 433 mg/dL (74-106); Potassium 7.7 mmol/L (3.5-5.1)
[2018-08-03 13:49] LABS: Sodium 116 mmol/L (136-145)
[2018-08-03] MEDS ORDERED: MIDAZOLAM DRIP 50 mg/50mL 50 ML IV SCH ×2 (14:33→14:43)
[2018-08-03] MEDS ORDERED: PROPOFOL 100 ML IV SCH (14:43)
[2018-08-03] MEDS ORDERED: VANCOMYCIN PER PHARMACY 0 MG IV SCH (15:00)
[2018-08-03] MEDS: PROPOFOL 100 ML IV SCH (15:00)
[2018-08-03] MEDS ORDERED: cefTRIAXone 1GM/10ml IVPUSH 10 ML IV ONE (15:00)
[2018-08-03] MEDS ORDERED: CALCIUM GLUC 4.65meq/50ml D5AE 50 ML IV ONE (15:00)
[2018-08-03] MEDS ORDERED: InsuLIN REG 1unit/0.01ml Soln (100units/ml) IV ONE (15:00)
[2018-08-03] MEDS ORDERED: SODIUM CHLORIDE 0.9% 1,000 ML IV SCH (15:07)
[2018-08-03] MEDS: MIDAZOLAM DRIP 50 mg/50mL 50 ML IV SCH (15:09)
[2018-08-03] MEDS ORDERED: FAMOTIDINE (10MG/ML) 2ML VL IV ONE (15:15)
[2018-08-03] MEDS ORDERED: DEXTROSE (50%) 50ML SYRG IV PRN ×2 (15:15→16:15)
[2018-08-03] MEDS ORDERED: VANCOMYCIN 1GM/250ML 250 ML IV ONE (15:15)
[2018-08-03] MEDS ORDERED: NITROGLYCERIN 0.4 MG SL TAB SL PRN (15:15)
[2018-08-03] MEDS ORDERED: ONDANSETRON HCL 4 MG/2 ML VIAL IV PRN (15:15)
[2018-08-03] MEDS ORDERED: PANTOPRAZOLE 40 MG/10 ML VIAL IV ONE (15:15)
[2018-08-03] MEDS ORDERED: MORPHINE SULF INJ 2 MG/ML SYRINGE 1ML IV PRN (15:15)
[2018-08-03] MEDS: ALBUTEROL SULF 2.5 MG/0.5ML(0.5%) NEB SOLN NEB SCH ×2 (17:15→23:32)
[2018-08-03] MEDS ORDERED: EPOETIN ALFA 10,000 UNIT/1 ML VIAL IV ONE (17:15)
[2018-08-03] MEDS: IPRATROPIUM BROM 0.5 MG/2.5ML INH SOL NEB SCH ×2 (17:15→23:32)
[2018-08-03] MEDS ORDERED: SODIUM CHL 0.9% 1000 ML BAG XX ONE (17:15)
[2018-08-03] MEDS ORDERED: ACCU-CHEK COMFORT CURVE STRIP VI SCH (18:00)
[2018-08-03] MEDS ORDERED: InsuLIN REG 1unit/0.01ml Soln (100units/ml) SC SCH (18:00)
[2018-08-03] MEDS: ACCU-CHEK COMFORT CURVE STRIP VI SCH (18:14)
[2018-08-03] MEDS: InsuLIN REG 1unit/0.01ml Soln (100units/ml) SC SCH (18:15)
[2018-08-03 19:06] LABS: Hematocrit 18.9 % (36.0-46.0)
[2018-08-03 19:21] LABS: BUN/Creatinine Ratio 25.1; Potassium 4.4 mmol/L (3.5-5.1)
[2018-08-03 19:36] LABS: Hemoglobin 6.3 g/dL (12.2-16.2)
[2018-08-03] MEDS: ASPirin 81 mg TAB PO SCH (20:16)
[2018-08-03] MEDS: ATORVASTATIN 20 MG TAB PO SCH (22:00)
[2018-08-03] MEDS: HEPARIN SODIUM (PORCINE) 5000 UNITS/ML 1ML VIAL SC SCH (22:00)
[2018-08-03 23:29] LABS: Hematocrit 22.6 % (36.0-46.0); Hemoglobin 7.4 g/dL (12.2-16.2)
[2018-08-04] VITALS (100 sets, daily range): BP systolic 77–138; BP diastolic 43–73
[2018-08-04] MEDS: InsuLIN REG 1unit/0.01ml Soln (100units/ml) SC SCH ×4 (00:15→18:00)
[2018-08-04] MEDS: ACCU-CHEK COMFORT CURVE STRIP VI SCH ×4 (00:15→18:15)
[2018-08-04 05:06] LABS: Hematocrit 18.4 % (36.0-46.0); Mean Corpuscular Hemoglobin 33.3 pg (28.0-32.0); Mean Corpuscular Hgb Conc. 33.2 g/dL (32.0-36.0); Mean Corpuscular Volume 100.5 fL (80.0-100.0); Platelet Count (auto) 290 10^3/uL (140-450); Red Blood Cells 1.83 10^6/uL (4.0-5.20); White Blood Cell 12.6 10^3/uL (4.4-10.8)
[2018-08-04 05:07] LABS: Red Cell Distribution Width 21.6 % (11.8-14.3)
[2018-08-04 05:08] LABS: Hemoglobin 6.5 g/dL (12.2-16.2)
[2018-08-04 05:09] LABS: Basophils % (manual) 0 (0.0-2.0); Blast Cells 0; Promyelocytes % 0; Reactive Lymphocytes 0
[2018-08-04 05:24] LABS: Albumin 1.6 g/dL (3.4-5.0); BUN/Creatinine Ratio 21.8; Calcium 7.7 mg/dL (8.5-10.1); Potassium 3.8 mmol/L (3.5-5.1)
[2018-08-04 05:27] LABS: Bilirubin, Total 0.3 mg/dL (0.2-1.0); Total Protein 5.9 g/dL (6.4-8.2)
[2018-08-04 05:31] LABS: Eosinophils % (manual) 4 (0-7); Lymphocytes % (manual) 11 (10.0-50.0); Monocytes % (manual) 5 (0-12)
[2018-08-04 05:32] LABS: Band Neutrophils % (manual) 2; Metamyelocytes % 1; Myelocytes % 0
[2018-08-04] MEDS: IPRATROPIUM BROM 0.5 MG/2.5ML INH SOL NEB SCH ×3 (06:21→18:58)
[2018-08-04] MEDS: ALBUTEROL SULF 2.5 MG/0.5ML(0.5%) NEB SOLN NEB SCH ×3 (06:21→18:58)
[2018-08-04] MEDS: cefTRIAXone 1GM/10ml IVPUSH 10 ML IV SCH (09:00)
[2018-08-04] MEDS: PANTOPRAZOLE 40 MG/10 ML VIAL IV SCH (10:00)
[2018-08-04] MEDS ORDERED: ENOXAPARIN SOD 30 MG/0.3 ML SYRINGE SC SCH (10:00)
[2018-08-04] MEDS: ASPirin 81 mg TAB PO SCH (10:13)
[2018-08-04] MEDS ORDERED: EPOETIN ALFA 10,000 UNIT/1 ML VIAL IV ONE (10:15)
[2018-08-04] MEDS ORDERED: SODIUM CHL 0.9% 1000 ML BAG XX ONE (10:15)
[2018-08-04] MEDS: HEPARIN SODIUM (PORCINE) 5000 UNITS/ML 1ML VIAL SC SCH ×2 (10:16→21:50)
[2018-08-04] MEDS: MIDAZOLAM DRIP 50 mg/50mL 50 ML IV SCH ×2 (10:18→22:30)
[2018-08-04] MEDS: PROPOFOL 100 ML IV SCH (15:00)
[2018-08-04] MEDS ORDERED: ACET120S38 PR (16:46)
[2018-08-04] MEDS ORDERED: ALB5IS NEB (16:47)
[2018-08-04] MEDS ORDERED: ASPI81CH43 GT (16:51)
[2018-08-04] MEDS ORDERED: AML5T GT (16:51)
[2018-08-04] MEDS ORDERED: ATOR1TAB PO (16:51)
[2018-08-04] MEDS ORDERED: B-CO-5 OR (17:01)
[2018-08-04] MEDS ORDERED: CLOP75TA41 PO (17:01)
[2018-08-04] MEDS ORDERED: B-COTAB10 OR (17:01)
[2018-08-04] MEDS ORDERED: CLON0.1D7 TD (17:01)
[2018-08-04] MEDS ORDERED: CARV3.1240 PO (17:01)
[2018-08-04] MEDS ORDERED: CALC0.5C2 PO (17:01)
[2018-08-04] MEDS ORDERED: GABA300C10 PO (17:09)
[2018-08-04] MEDS ORDERED: DOCU100T15 PO (17:09)
[2018-08-04] MEDS ORDERED: HAL5T GT (17:09)
[2018-08-04] MEDS ORDERED: FAM20T GT (17:09)
[2018-08-04] MEDS ORDERED: [UNRECOGNIZED DRUG - CODE] SC (17:14)
[2018-08-04] MEDS ORDERED: HYD2I IM (17:14)
[2018-08-04] MEDS ORDERED: HYDR1SYP3 PO (17:14)
[2018-08-04] MEDS ORDERED: INSU100I21 SC (17:21)
[2018-08-04] MEDS ORDERED: ZINC220C8 PO (17:21)
[2018-08-04] MEDS ORDERED: SENN-58 PO (17:21)
[2018-08-04] MEDS ORDERED: LABE100T4 PO (17:21)
[2018-08-04] MEDS ORDERED: VENL75CA3 PO (17:21)
[2018-08-04] MEDS ORDERED: TRIM300C23 PO (17:21)
[2018-08-04] MEDS ORDERED: INSLANTI SC (17:21)
[2018-08-04] MEDS: FAMOTIDINE (10MG/ML) 2ML VL IV SCH (21:49)
[2018-08-04] MEDS: ATORVASTATIN 20 MG TAB PO SCH (21:49)
[2018-08-04] MEDS: MORPHINE SULF INJ 2 MG/ML SYRINGE 1ML IV PRN (21:50)
[2018-08-05] VITALS (92 sets, daily range): BP systolic 85–147; BP diastolic 36–71
[2018-08-05] MEDS: ACCU-CHEK COMFORT CURVE STRIP VI SCH ×4 (00:19→18:16)
[2018-08-05] MEDS: ALBUTEROL SULF 2.5 MG/0.5ML(0.5%) NEB SOLN NEB SCH ×4 (00:25→18:38)
[2018-08-05] MEDS: IPRATROPIUM BROM 0.5 MG/2.5ML INH SOL NEB SCH ×4 (00:25→18:38)
[2018-08-05 04:18] LABS: Basophils # (auto) 0.1 uL; Eosinophils # (auto) 0.6 uL; Hemoglobin 7.5 g/dL (12.2-16.2)
[2018-08-05 04:20] LABS: Basophils % (auto) 0.8 % (0.0-2.0); Eosinophils % (auto) 4.6 % (0.0-7.0); Hematocrit 22.7 % (36.0-46.0); Lymphocytes # (auto) 1.5 uL; Lymphocytes % (auto) 11.4 % (10.0-50.0); Mean Corpuscular Hemoglobin 32.6 pg (28.0-32.0); Mean Corpuscular Hgb Conc. 32.9 g/dL (32.0-36.0); Mean Corpuscular Volume 99.1 fL (80.0-100.0); Monocytes # (auto) 0.9 uL; Neutrophils # (auto) 10.1 uL; Neutrophils % (auto) 76.2 % (37.0-80.0); Nucleated Red Blood Cells % 0.1 %; Platelet Count (auto) 281 10^3/uL (140-450); Red Blood Cells 2.29 10^6/uL (4.0-5.20); White Blood Cell 13.3 10^3/uL (4.4-10.8)
[2018-08-05 04:22] LABS: Red Cell Distribution Width 20.9 % (11.8-14.3)
[2018-08-05 04:35] LABS: Albumin 1.5 g/dL (3.4-5.0); Calcium 8.5 mg/dL (8.5-10.1); Potassium 4.1 mmol/L (3.5-5.1)
[2018-08-05 04:37] LABS: BUN/Creatinine Ratio 19.8
[2018-08-05 04:44] LABS: Bilirubin, Total 0.4 mg/dL (0.2-1.0); Total Protein 6.7 g/dL (6.4-8.2)
[2018-08-05] MEDS: InsuLIN REG 1unit/0.01ml Soln (100units/ml) SC SCH ×4 (05:49→18:16)
[2018-08-05] MEDS: MIDAZOLAM DRIP 50 mg/50mL 50 ML IV SCH ×2 (09:49→22:01)
[2018-08-05] MEDS: cefTRIAXone 1GM/10ml IVPUSH 10 ML IV SCH (09:59)
[2018-08-05] MEDS: PANTOPRAZOLE 40 MG/10 ML VIAL IV SCH (09:59)
[2018-08-05] MEDS: HEPARIN SODIUM (PORCINE) 5000 UNITS/ML 1ML VIAL SC SCH ×2 (10:05→22:01)
[2018-08-05] MEDS: ASPirin 81 mg TAB PO SCH (10:08)
[2018-08-05] MEDS ORDERED: HEPARIN SODIUM (PORCINE) 5000 UNITS/ML 1ML VIAL ONE (12:16)
[2018-08-05] MEDS: MORPHINE SULF INJ 2 MG/ML SYRINGE 1ML IV PRN ×2 (14:56→19:31)
[2018-08-05] MEDS: PROPOFOL 100 ML IV SCH (15:00)
[2018-08-05] MEDS ORDERED: VANCOMYCIN 1GM/250ML 250 ML IV ONE (17:30)
[2018-08-05] MEDS: ATORVASTATIN 20 MG TAB PO SCH (22:00)
[2018-08-05] MEDS: FAMOTIDINE (10MG/ML) 2ML VL IV SCH (22:00)
[2018-08-06] VITALS (90 sets, daily range): BP systolic 98–169; BP diastolic 31–98
[2018-08-06] MEDS: ACCU-CHEK COMFORT CURVE STRIP VI SCH ×4 (00:01→18:05)
[2018-08-06] MEDS: ALBUTEROL SULF 2.5 MG/0.5ML(0.5%) NEB SOLN NEB SCH ×4 (00:24→18:29)
[2018-08-06] MEDS: IPRATROPIUM BROM 0.5 MG/2.5ML INH SOL NEB SCH ×4 (00:24→18:29)
[2018-08-06] MEDS: MORPHINE SULF INJ 2 MG/ML SYRINGE 1ML IV PRN ×2 (02:22→08:53)
[2018-08-06 03:56] LABS: Hemoglobin 7.5 g/dL (12.2-16.2); Monocytes # (auto) 0.9 uL; Nucleated Red Blood Cells % 0.1 %
[2018-08-06 03:58] LABS: Basophils # (auto) 0 uL; Basophils % (auto) 0.3 % (0.0-2.0); Eosinophils # (auto) 0.3 uL; Eosinophils % (auto) 2.8 % (0.0-7.0); Hematocrit 23.9 % (36.0-46.0); Lymphocytes # (auto) 1.3 uL; Lymphocytes % (auto) 10.9 % (10.0-50.0); Mean Corpuscular Hemoglobin 31.2 pg (28.0-32.0); Mean Corpuscular Hgb Conc. 31.3 g/dL (32.0-36.0); Mean Corpuscular Volume 99.5 fL (80.0-100.0); Monocytes % (auto) 7.5 % (0.0-12.0); Neutrophils # (auto) 9.2 uL; Neutrophils % (auto) 78.5 % (37.0-80.0); Platelet Count (auto) 304 10^3/uL (140-450); White Blood Cell 11.7 10^3/uL (4.4-10.8)
[2018-08-06 04:01] LABS: Red Cell Distribution Width 20.5 % (11.8-14.3)
[2018-08-06 04:17] LABS: Albumin 1.6 g/dL (3.4-5.0); BUN/Creatinine Ratio 13.7; Bilirubin, Total 0.5 mg/dL (0.2-1.0); Calcium 7.8 mg/dL (8.5-10.1); Potassium 3.9 mmol/L (3.5-5.1); Total Protein 6.1 g/dL (6.4-8.2)
[2018-08-06] MEDS: InsuLIN REG 1unit/0.01ml Soln (100units/ml) SC SCH ×4 (06:00→18:00)
[2018-08-06] MEDS: cefTRIAXone 1GM/10ml IVPUSH 10 ML IV SCH (08:53)
[2018-08-06] MEDS: PANTOPRAZOLE 40 MG/10 ML VIAL IV SCH (09:52)
[2018-08-06] MEDS: ASPirin 81 mg TAB PO SCH (09:52)
[2018-08-06] MEDS: HEPARIN SODIUM (PORCINE) 5000 UNITS/ML 1ML VIAL SC SCH ×2 (09:53→21:56)
[2018-08-06] MEDS ORDERED: EPINEPHrine HCL 0.5 ML NEB NEB ONE (11:00)
[2018-08-06] MEDS: PROPOFOL 100 ML IV SCH (14:18)
[2018-08-06] MEDS: FAMOTIDINE (10MG/ML) 2ML VL IV SCH (21:55)
[2018-08-06] MEDS: ATORVASTATIN 20 MG TAB PO SCH (21:55)
[2018-08-07] VITALS (48 sets, daily range): BP systolic 102–150; BP diastolic 42–73
[2018-08-07] MEDS: ACCU-CHEK COMFORT CURVE STRIP VI SCH ×4 (00:12→18:00)
[2018-08-07] MEDS: IPRATROPIUM BROM 0.5 MG/2.5ML INH SOL NEB SCH ×4 (00:15→18:20)
[2018-08-07] MEDS: ALBUTEROL SULF 2.5 MG/0.5ML(0.5%) NEB SOLN NEB SCH ×4 (00:15→18:20)
[2018-08-07 04:23] LABS: Hemoglobin 8.5 g/dL (12.2-16.2); Lymphocytes # (auto) 1.1 uL; Lymphocytes % (auto) 11.7 % (10.0-50.0); Mean Corpuscular Volume 102.3 fL (80.0-100.0); Monocytes # (auto) 0.7 uL; Monocytes % (auto) 7.9 % (0.0-12.0); White Blood Cell 9.5 10^3/uL (4.4-10.8)
[2018-08-07 04:25] LABS: Basophils # (auto) 0 uL; Basophils % (auto) 0.5 % (0.0-2.0); Eosinophils # (auto) 0.6 uL; Eosinophils % (auto) 6.6 % (0.0-7.0); Hematocrit 27.1 % (36.0-46.0); Mean Corpuscular Hemoglobin 32.2 pg (28.0-32.0); Mean Corpuscular Hgb Conc. 31.5 g/dL (32.0-36.0); Neutrophils % (auto) 73.3 % (37.0-80.0); Nucleated Red Blood Cells % 0.1 %; Platelet Count (auto) 343 10^3/uL (140-450); Red Blood Cells 2.65 10^6/uL (4.0-5.20); Red Cell Distribution Width 20.6 % (11.8-14.3)
[2018-08-07 04:34] LABS: Alanine Aminotransferase 18 U/L (13-56); Albumin 1.6 g/dL (3.4-5.0); Anion Gap 12 (5-15); Aspartate Aminotransferase 17 U/L (15-37); BUN/Creatinine Ratio 12.3; Blood Urea Nitrogen 34 mg/dL (7-18); Calcium 8.1 mg/dL (8.5-10.1); Carbon Dioxide 26 mmol/L (21-32); Chloride 99 mmol/L (98-107); GFR African American 24 mL/min; GFR Non-African American 20 mL/min; Glucose 98 mg/dL (74-106); Potassium 4.5 mmol/L (3.5-5.1); Sodium 137 mmol/L (136-145)
[2018-08-07 04:37] LABS: Alkaline Phosphatase 221 U/L (45-117); Bilirubin, Total 0.4 mg/dL (0.2-1.0); Total Protein 6.4 g/dL (6.4-8.2)
[2018-08-07] MEDS: InsuLIN REG 1unit/0.01ml Soln (100units/ml) SC SCH ×4 (05:29→18:00)
[2018-08-07] MEDS: ASPirin 81 mg TAB PO SCH ×2 (10:00→18:00)
[2018-08-07] MEDS: PANTOPRAZOLE 40 MG/10 ML VIAL IV SCH (10:42)
[2018-08-07] MEDS: cefTRIAXone 1GM/10ml IVPUSH 10 ML IV SCH (10:43)
[2018-08-07] MEDS: HEPARIN SODIUM (PORCINE) 5000 UNITS/ML 1ML VIAL SC SCH ×2 (10:43→21:44)
[2018-08-07] MEDS: PROPOFOL 100 ML IV SCH (15:00)
[2018-08-07] MEDS ORDERED: MIDAZOLAM HCL 5 MG/ML-1ML VIAL ONE (15:03)
[2018-08-07] MEDS ORDERED: ETOMIDATE (2MG/ML) 20ML VIAL IV ONE (15:03)
[2018-08-07] MEDS ORDERED: SUCCINYLCHOLINE CHLORIDE 20 MG/ML 10ML VIAL IV ONE (15:04)
[2018-08-07] MEDS: MIDAZOLAM DRIP 50 mg/50mL 50 ML IV SCH ×2 (15:13→15:22)
[2018-08-07] MEDS: ACETYLCYSTEINE 20%(200MG/ML) SOL 4ML NEB SCH (18:20)
[2018-08-07] MEDS: ATORVASTATIN 20 MG TAB PO SCH (21:44)
[2018-08-07] MEDS: FAMOTIDINE (10MG/ML) 2ML VL IV SCH (21:45)
[2018-08-08] VITALS (58 sets, daily range): BP systolic 113–167; BP diastolic 47–101
[2018-08-08] MEDS: ALBUTEROL SULF 2.5 MG/0.5ML(0.5%) NEB SOLN NEB SCH ×5 (00:20→23:59)
[2018-08-08] MEDS: ACETYLCYSTEINE 20%(200MG/ML) SOL 4ML NEB SCH ×5 (00:20→23:59)
[2018-08-08] MEDS: IPRATROPIUM BROM 0.5 MG/2.5ML INH SOL NEB SCH ×5 (00:20→23:59)
[2018-08-08] MEDS: MIDAZOLAM DRIP 50 mg/50mL 50 ML IV SCH ×2 (04:14→21:30)
[2018-08-08] MEDS: InsuLIN REG 1unit/0.01ml Soln (100units/ml) SC SCH ×5 (06:00→23:41)
[2018-08-08] MEDS: ACCU-CHEK COMFORT CURVE STRIP VI SCH ×5 (06:00→23:40)
[2018-08-08] MEDS: HEPARIN SODIUM (PORCINE) 5000 UNITS/ML 1ML VIAL SC SCH ×2 (09:12→22:23)
[2018-08-08] MEDS: cefTRIAXone 1GM/10ml IVPUSH 10 ML IV SCH (09:12)
[2018-08-08] MEDS: PANTOPRAZOLE 40 MG/10 ML VIAL IV SCH (09:12)
[2018-08-08] MEDS: ASPirin 81 mg TAB PO SCH (09:12)
[2018-08-08 09:25] LABS: Basophils # (auto) 0 uL; Basophils % (auto) 0.4 % (0.0-2.0); Eosinophils # (auto) 0.4 uL; Hemoglobin 7.6 g/dL (12.2-16.2); Monocytes # (auto) 0.7 uL; Neutrophils # (auto) 8.1 uL; White Blood Cell 10.3 10^3/uL (4.4-10.8)
[2018-08-08 09:28] LABS: Eosinophils % (auto) 4.4 % (0.0-7.0); Mean Corpuscular Hemoglobin 32.3 pg (28.0-32.0); Mean Corpuscular Hgb Conc. 31.7 g/dL (32.0-36.0); Mean Corpuscular Volume 101.8 fL (80.0-100.0); Monocytes % (auto) 6.8 % (0.0-12.0); Neutrophils % (auto) 78.4 % (37.0-80.0); Nucleated Red Blood Cells % 0.1 %; Platelet Count (auto) 330 10^3/uL (140-450); Red Blood Cells 2.36 10^6/uL (4.0-5.20)
[2018-08-08 09:33] LABS: Red Cell Distribution Width 20.4 % (11.8-14.3)
[2018-08-08 09:39] LABS: Albumin 1.5 g/dL (3.4-5.0); BUN/Creatinine Ratio 12.1; Calcium 8.5 mg/dL (8.5-10.1); Potassium 4.5 mmol/L (3.5-5.1)
[2018-08-08 09:42] LABS: Bilirubin, Total 0.5 mg/dL (0.2-1.0); Total Protein 7.2 g/dL (6.4-8.2)
[2018-08-08] MEDS: PROPOFOL 100 ML IV SCH (15:00)
[2018-08-08] MEDS: FAMOTIDINE (10MG/ML) 2ML VL IV SCH (22:22)
[2018-08-08] MEDS: ATORVASTATIN 20 MG TAB PO SCH (22:22)
[2018-08-09] VITALS (106 sets, daily range): BP systolic 116–183; BP diastolic 50–105
[2018-08-09 04:25] LABS: Basophils # (auto) 0.1 uL; Eosinophils # (auto) 0.5 uL; Hemoglobin 7.7 g/dL (12.2-16.2); Lymphocytes # (auto) 1.2 uL; Mean Corpuscular Hemoglobin 31.8 pg (28.0-32.0); Nucleated Red Blood Cells % 0.1 %; White Blood Cell 12.1 10^3/uL (4.4-10.8)
[2018-08-09 04:28] LABS: Basophils % (auto) 0.5 % (0.0-2.0); Eosinophils % (auto) 3.8 % (0.0-7.0); Hematocrit 24.7 % (36.0-46.0); Lymphocytes % (auto) 9.6 % (10.0-50.0); Mean Corpuscular Hgb Conc. 31.1 g/dL (32.0-36.0); Mean Corpuscular Volume 102.4 fL (80.0-100.0); Monocytes # (auto) 0.9 uL; Monocytes % (auto) 7.8 % (0.0-12.0); Neutrophils # (auto) 9.5 uL; Neutrophils % (auto) 78.3 % (37.0-80.0); Platelet Count (auto) 368 10^3/uL (140-450); Red Blood Cells 2.41 10^6/uL (4.0-5.20)
[2018-08-09 04:33] LABS: Red Cell Distribution Width 20.7 % (11.8-14.3)
[2018-08-09 04:46] LABS: Albumin 1.7 g/dL (3.4-5.0); BUN/Creatinine Ratio 12.6; Bilirubin, Total 0.6 mg/dL (0.2-1.0); Calcium 8.4 mg/dL (8.5-10.1); Potassium 5.3 mmol/L (3.5-5.1); Total Protein 6.8 g/dL (6.4-8.2)
[2018-08-09] MEDS: ACCU-CHEK COMFORT CURVE STRIP VI SCH ×3 (05:57→17:59)
[2018-08-09] MEDS: InsuLIN REG 1unit/0.01ml Soln (100units/ml) SC SCH ×3 (06:19→17:59)
[2018-08-09] MEDS: ACETYLCYSTEINE 20%(200MG/ML) SOL 4ML NEB SCH ×4 (06:26→23:45)
[2018-08-09] MEDS: ALBUTEROL SULF 2.5 MG/0.5ML(0.5%) NEB SOLN NEB SCH ×4 (06:26→23:45)
[2018-08-09] MEDS: IPRATROPIUM BROM 0.5 MG/2.5ML INH SOL NEB SCH ×4 (06:26→23:45)
[2018-08-09] MEDS: PANTOPRAZOLE 40 MG/10 ML VIAL IV SCH (09:39)
[2018-08-09] MEDS: cefTRIAXone 1GM/10ml IVPUSH 10 ML IV SCH (09:39)
[2018-08-09] MEDS: ASPirin 81 mg TAB PO SCH (09:40)
[2018-08-09] MEDS: HEPARIN SODIUM (PORCINE) 5000 UNITS/ML 1ML VIAL SC SCH ×2 (09:42→22:07)
[2018-08-09] MEDS ORDERED: SODIUM CHL 0.9% 1000 ML BAG XX ONE (11:15)
[2018-08-09] MEDS ORDERED: EPOETIN ALFA 2,000 UNIT/1 ML VIAL IV ONE (11:15)
[2018-08-09] MEDS ORDERED: EPOETIN ALFA 3,000 UNIT/1 ML VIAL IV ONE (11:30)
[2018-08-09] MEDS: PROPOFOL 100 ML IV SCH (11:51)
[2018-08-09] MEDS: BISACODYL 10 MG RECT SUPP PR PRN (17:52)
[2018-08-09] MEDS: ACETAMINOPHEN 650 MG RECT SUPP PR PRN (17:53)
[2018-08-09] MEDS: ATORVASTATIN 20 MG TAB PO SCH (22:06)
[2018-08-09] MEDS: FAMOTIDINE (10MG/ML) 2ML VL IV SCH (22:06)
[2018-08-10] VITALS (99 sets, daily range): BP systolic 99–168; BP diastolic 48–85
[2018-08-10] MEDS: ALBUTEROL SULF 2.5 MG/0.5ML(0.5%) NEB SOLN NEB SCH ×3 (05:53→18:48)
[2018-08-10] MEDS: ACETYLCYSTEINE 20%(200MG/ML) SOL 4ML NEB SCH ×3 (05:53→18:48)
[2018-08-10] MEDS: IPRATROPIUM BROM 0.5 MG/2.5ML INH SOL NEB SCH ×3 (05:53→18:48)
[2018-08-10] MEDS: InsuLIN REG 1unit/0.01ml Soln (100units/ml) SC SCH ×4 (06:00→17:59)
[2018-08-10] MEDS: ACCU-CHEK COMFORT CURVE STRIP VI SCH ×4 (06:22→17:59)
[2018-08-10] MEDS: cefTRIAXone 1GM/10ml IVPUSH 10 ML IV SCH (08:53)
[2018-08-10 09:21] LABS: Basophils # (auto) 0.1 uL; Eosinophils # (auto) 0.6 uL; Hemoglobin 7.4 g/dL (12.2-16.2); Lymphocytes # (auto) 1.1 uL; Monocytes # (auto) 0.7 uL; Nucleated Red Blood Cells % 0.1 %
[2018-08-10 09:24] LABS: Eosinophils % (auto) 6.1 % (0.0-7.0); Hematocrit 23.2 % (36.0-46.0); Lymphocytes % (auto) 10.6 % (10.0-50.0); Mean Corpuscular Hemoglobin 32.1 pg (28.0-32.0); Mean Corpuscular Hgb Conc. 31.6 g/dL (32.0-36.0); Mean Corpuscular Volume 101.3 fL (80.0-100.0); Monocytes % (auto) 6.6 % (0.0-12.0); Neutrophils # (auto) 7.7 uL; Neutrophils % (auto) 75.7 % (37.0-80.0); Platelet Count (auto) 345 10^3/uL (140-450); Red Blood Cells 2.29 10^6/uL (4.0-5.20); White Blood Cell 10.2 10^3/uL (4.4-10.8)
[2018-08-10 09:25] LABS: Red Cell Distribution Width 20.1 % (11.8-14.3)
[2018-08-10] MEDS: ASPirin 81 mg TAB PO SCH (10:04)
[2018-08-10] MEDS: HEPARIN SODIUM (PORCINE) 5000 UNITS/ML 1ML VIAL SC SCH ×2 (10:05→22:35)
[2018-08-10] MEDS: PANTOPRAZOLE 40 MG/10 ML VIAL IV SCH (10:05)
[2018-08-10 11:33] LABS: Alanine Aminotransferase 13 U/L (13-56); Albumin 1.5 g/dL (3.4-5.0); Alkaline Phosphatase 184 U/L (45-117); Anion Gap 14 (5-15); Aspartate Aminotransferase 14 U/L (15-37); BUN/Creatinine Ratio 12.3; Bilirubin, Total 0.5 mg/dL (0.2-1.0); Blood Urea Nitrogen 62 mg/dL (7-18); Calcium 8.5 mg/dL (8.5-10.1); Carbon Dioxide 23 mmol/L (21-32); Chloride 100 mmol/L (98-107); GFR African American 12 mL/min; GFR Non-African American 10 mL/min; Glucose 136 mg/dL (74-106); Potassium 5.5 mmol/L (3.5-5.1); Sodium 137 mmol/L (136-145); Total Protein 7.7 g/dL (6.4-8.2)
[2018-08-10] MEDS: PROPOFOL 100 ML IV SCH (15:00)
[2018-08-10] MEDS: MIDAZOLAM DRIP 50 mg/50mL 50 ML IV SCH (15:00)
[2018-08-10] MEDS: FAMOTIDINE (10MG/ML) 2ML VL IV SCH (22:34)
[2018-08-10] MEDS: ATORVASTATIN 20 MG TAB PO SCH (22:35)
[2018-08-10] MEDS: METOCLOPRAMIDE HCL 5MG/ml INJ 2ml VIAL IV PRN (22:48)
[2018-08-11] VITALS (82 sets, daily range): BP systolic 98–192; BP diastolic 49–94
[2018-08-11] MEDS: IPRATROPIUM BROM 0.5 MG/2.5ML INH SOL NEB SCH ×4 (00:20→19:46)
[2018-08-11] MEDS: ACETYLCYSTEINE 20%(200MG/ML) SOL 4ML NEB SCH ×4 (00:20→19:46)
[2018-08-11] MEDS: ALBUTEROL SULF 2.5 MG/0.5ML(0.5%) NEB SOLN NEB SCH ×4 (00:20→19:46)
[2018-08-11] MEDS: Nepro With Carb Steady 1 Liter Bottle GT SCH (01:34)
[2018-08-11 04:42] LABS: Basophils # (auto) 0 uL; Nucleated Red Blood Cells % 0.1 %
[2018-08-11 04:43] LABS: Basophils % (auto) 0.6 % (0.0-2.0); Eosinophils # (auto) 0.3 uL; Lymphocytes % (auto) 13.7 % (10.0-50.0); Mean Corpuscular Hemoglobin 32.9 pg (28.0-32.0); Mean Corpuscular Hgb Conc. 31.9 g/dL (32.0-36.0); Mean Corpuscular Volume 103.1 fL (80.0-100.0); Monocytes # (auto) 0.7 uL; Monocytes % (auto) 9.5 % (0.0-12.0); Neutrophils % (auto) 71.2 % (37.0-80.0); Platelet Count (auto) 342 10^3/uL (140-450)
[2018-08-11 04:45] LABS: Hematocrit 23.6 % (36.0-46.0); Hemoglobin 7.4 g/dL (12.2-16.2); Red Blood Cells 2.28 10^6/uL (4.0-5.20)
[2018-08-11 04:52] LABS: Albumin 1.6 g/dL (3.4-5.0); BUN/Creatinine Ratio 11.9; Calcium 8.1 mg/dL (8.5-10.1); Potassium 4.1 mmol/L (3.5-5.1)
[2018-08-11 04:54] LABS: Bilirubin, Total 0.5 mg/dL (0.2-1.0); Total Protein 6.5 g/dL (6.4-8.2)
[2018-08-11] MEDS: InsuLIN REG 1unit/0.01ml Soln (100units/ml) SC SCH ×4 (06:00→18:22)
[2018-08-11] MEDS: ACCU-CHEK COMFORT CURVE STRIP VI SCH ×4 (06:00→18:22)
[2018-08-11] MEDS: PANTOPRAZOLE 40 MG/10 ML VIAL IV SCH (10:44)
[2018-08-11] MEDS: ASPirin 81 mg TAB PO SCH (10:45)
[2018-08-11] MEDS: cefTRIAXone 1GM/10ml IVPUSH 10 ML IV SCH (10:45)
[2018-08-11] MEDS: HEPARIN SODIUM (PORCINE) 5000 UNITS/ML 1ML VIAL SC SCH ×2 (10:47→22:05)
[2018-08-11] MEDS: MIDAZOLAM DRIP 50 mg/50mL 50 ML IV SCH (15:00)
[2018-08-11] MEDS: PROPOFOL 100 ML IV SCH (15:00)
[2018-08-11] MEDS ORDERED: VANCOMYCIN 500 MG in D5W 5% 100 ML IV ONE (16:00)
[2018-08-11] MEDS: FAMOTIDINE (10MG/ML) 2ML VL IV SCH (22:05)
[2018-08-11] MEDS: ATORVASTATIN 20 MG TAB PO SCH (22:06)
[2018-08-12] VITALS (96 sets, daily range): BP systolic 108–175; BP diastolic 46–99
[2018-08-12] MEDS: ACETYLCYSTEINE 20%(200MG/ML) SOL 4ML NEB SCH ×4 (00:27→19:03)
[2018-08-12] MEDS: IPRATROPIUM BROM 0.5 MG/2.5ML INH SOL NEB SCH ×4 (00:27→19:03)
[2018-08-12] MEDS: ALBUTEROL SULF 2.5 MG/0.5ML(0.5%) NEB SOLN NEB SCH ×4 (00:27→19:03)
[2018-08-12] MEDS: ACCU-CHEK COMFORT CURVE STRIP VI SCH ×4 (00:38→18:26)
[2018-08-12] MEDS: InsuLIN REG 1unit/0.01ml Soln (100units/ml) SC SCH ×4 (00:39→18:26)
[2018-08-12 04:33] LABS: Eosinophils # (auto) 0.5 uL; Monocytes # (auto) 0.7 uL; Neutrophils # (auto) 4.7 uL; Nucleated Red Blood Cells % 0.1 %; White Blood Cell 6.7 10^3/uL (4.4-10.8)
[2018-08-12 04:35] LABS: Basophils # (auto) 0 uL; Basophils % (auto) 0.4 % (0.0-2.0); Eosinophils % (auto) 6.8 % (0.0-7.0); Hematocrit 23.5 % (36.0-46.0); Lymphocytes # (auto) 0.7 uL; Lymphocytes % (auto) 11.2 % (10.0-50.0); Mean Corpuscular Hemoglobin 31.5 pg (28.0-32.0); Mean Corpuscular Hgb Conc. 31.4 g/dL (32.0-36.0); Mean Corpuscular Volume 100.3 fL (80.0-100.0); Monocytes % (auto) 10.3 % (0.0-12.0); Neutrophils % (auto) 71.3 % (37.0-80.0); Platelet Count (auto) 382 10^3/uL (140-450); Red Blood Cells 2.34 10^6/uL (4.0-5.20); Red Cell Distribution Width 18.9 % (11.8-14.3)
[2018-08-12 04:36] LABS: Hemoglobin 7.5 g/dL (12.2-16.2)
[2018-08-12 04:53] LABS: Albumin 1.6 g/dL (3.4-5.0); Calcium 9.1 mg/dL (8.5-10.1); Potassium 3.6 mmol/L (3.5-5.1)
[2018-08-12 04:56] LABS: Bilirubin, Total 0.4 mg/dL (0.2-1.0); Total Protein 7.6 g/dL (6.4-8.2)
[2018-08-12] MEDS: PANTOPRAZOLE 40 MG/10 ML VIAL IV SCH (10:28)
[2018-08-12] MEDS: cefTRIAXone 1GM/10ml IVPUSH 10 ML IV SCH (10:28)
[2018-08-12] MEDS: ASPirin 81 mg TAB PO SCH (10:28)
[2018-08-12] MEDS: HEPARIN SODIUM (PORCINE) 5000 UNITS/ML 1ML VIAL SC SCH ×2 (10:29→22:14)
[2018-08-12] MEDS ORDERED: MORPHINE SULF INJ 2 MG/ML SYRINGE 1ML IV PRN (12:00)
[2018-08-12] MEDS: ACETAMINOPHEN 325 MG TAB PO PRN (13:26)
[2018-08-12] MEDS: MIDAZOLAM DRIP 50 mg/50mL 50 ML IV SCH (15:00)
[2018-08-12] MEDS: PROPOFOL 100 ML IV SCH (15:00)
[2018-08-12] MEDS: ATORVASTATIN 20 MG TAB PO SCH (22:13)
[2018-08-12] MEDS: FAMOTIDINE (10MG/ML) 2ML VL IV SCH (22:14)
[2018-08-13] VITALS (58 sets, daily range): BP systolic 109–175; BP diastolic 47–96
[2018-08-13] MEDS: ACCU-CHEK COMFORT CURVE STRIP VI SCH ×4 (00:05→18:00)
[2018-08-13] MEDS: IPRATROPIUM BROM 0.5 MG/2.5ML INH SOL NEB SCH ×4 (00:24→18:25)
[2018-08-13] MEDS: ACETYLCYSTEINE 20%(200MG/ML) SOL 4ML NEB SCH ×4 (00:25→18:25)
[2018-08-13] MEDS: ALBUTEROL SULF 2.5 MG/0.5ML(0.5%) NEB SOLN NEB SCH ×4 (00:25→18:25)
[2018-08-13 04:22] LABS: Basophils # (auto) 0 uL; Basophils % (auto) 0.5 % (0.0-2.0); Eosinophils # (auto) 0.5 uL; Hematocrit 23.4 % (36.0-46.0); Hemoglobin 7.5 g/dL (12.2-16.2); Lymphocytes % (auto) 14.7 % (10.0-50.0); Mean Corpuscular Hemoglobin 32.4 pg (28.0-32.0); Mean Corpuscular Hgb Conc. 32.3 g/dL (32.0-36.0); Mean Corpuscular Volume 100.5 fL (80.0-100.0); Monocytes # (auto) 0.5 uL; Monocytes % (auto) 7.8 % (0.0-12.0); Neutrophils # (auto) 4.8 uL; Nucleated Red Blood Cells % 0.1 %; Platelet Count (auto) 390 10^3/uL (140-450); Red Blood Cells 2.33 10^6/uL (4.0-5.20); Red Cell Distribution Width 18.8 % (11.8-14.3); White Blood Cell 6.9 10^3/uL (4.4-10.8)
[2018-08-13 04:27] LABS: Albumin 1.6 g/dL (3.4-5.0); BUN/Creatinine Ratio 12.3; Bilirubin, Total 0.4 mg/dL (0.2-1.0); Calcium 8.9 mg/dL (8.5-10.1); Potassium 3.7 mmol/L (3.5-5.1); Total Protein 7.6 g/dL (6.4-8.2)
[2018-08-13] MEDS: InsuLIN REG 1unit/0.01ml Soln (100units/ml) SC SCH ×4 (05:23→18:39)
[2018-08-13] MEDS: cefTRIAXone 1GM/10ml IVPUSH 10 ML IV SCH (10:14)
[2018-08-13] MEDS: PANTOPRAZOLE 40 MG/10 ML VIAL IV SCH (10:14)
[2018-08-13] MEDS: ASPirin 81 mg TAB PO SCH (10:15)
[2018-08-13] MEDS: HEPARIN SODIUM (PORCINE) 5000 UNITS/ML 1ML VIAL SC SCH ×2 (11:05→22:10)
[2018-08-13] MEDS: PROPOFOL 100 ML IV SCH (11:54)
[2018-08-13] MEDS: MIDAZOLAM DRIP 50 mg/50mL 50 ML IV SCH (11:58)
[2018-08-13] MEDS: ATORVASTATIN 20 MG TAB PO SCH (22:09)
[2018-08-13] MEDS: FAMOTIDINE (10MG/ML) 2ML VL IV SCH (22:10)
[2018-08-14] VITALS (75 sets, daily range): BP systolic 91–193; BP diastolic 44–103
[2018-08-14] MEDS: ACETYLCYSTEINE 20%(200MG/ML) SOL 4ML NEB SCH ×4 (00:13→18:28)
[2018-08-14] MEDS: IPRATROPIUM BROM 0.5 MG/2.5ML INH SOL NEB SCH ×4 (00:13→18:28)
[2018-08-14] MEDS: ALBUTEROL SULF 2.5 MG/0.5ML(0.5%) NEB SOLN NEB SCH ×4 (00:13→18:28)
[2018-08-14] MEDS: ACCU-CHEK COMFORT CURVE STRIP VI SCH ×4 (00:30→17:55)
[2018-08-14] MEDS: InsuLIN REG 1unit/0.01ml Soln (100units/ml) SC SCH ×4 (00:33→18:00)
[2018-08-14 04:18] LABS: Basophils # (auto) 0 uL; Eosinophils # (auto) 0.6 uL; Hemoglobin 7.8 g/dL (12.2-16.2); Mean Corpuscular Volume 99.8 fL (80.0-100.0); Monocytes # (auto) 0.6 uL
[2018-08-14 04:21] LABS: Basophils % (auto) 0.6 % (0.0-2.0); Eosinophils % (auto) 8.6 % (0.0-7.0); Lymphocytes # (auto) 1.3 uL; Lymphocytes % (auto) 16.9 % (10.0-50.0); Mean Corpuscular Hemoglobin 31.1 pg (28.0-32.0); Mean Corpuscular Hgb Conc. 31.2 g/dL (32.0-36.0); Monocytes % (auto) 7.9 % (0.0-12.0); Neutrophils # (auto) 4.9 uL; Platelet Count (auto) 395 10^3/uL (140-450); Red Blood Cells 2.51 10^6/uL (4.0-5.20); Red Cell Distribution Width 19.3 % (11.8-14.3); White Blood Cell 7.4 10^3/uL (4.4-10.8)
[2018-08-14 04:33] LABS: Albumin 1.5 g/dL (3.4-5.0); BUN/Creatinine Ratio 12.5; Bilirubin, Total 0.3 mg/dL (0.2-1.0); Potassium 3.7 mmol/L (3.5-5.1); Total Protein 7.5 g/dL (6.4-8.2)
[2018-08-14] MEDS ORDERED: HEPARIN 1,000 UNITS/ml 1ML VIAL ONE (12:50)
[2018-08-14] MEDS: PANTOPRAZOLE 40 MG/10 ML VIAL IV SCH (13:52)
[2018-08-14] MEDS: HEPARIN SODIUM (PORCINE) 5000 UNITS/ML 1ML VIAL SC SCH ×2 (13:52→22:02)
[2018-08-14] MEDS: ASPirin 81 mg TAB PO SCH (13:53)
[2018-08-14] MEDS: VANCOMYCIN 500 MG in D5W 5% 100 ML IV ONE ×2 (14:00→16:00)
[2018-08-14] MEDS: cefTRIAXone 1GM/10ml IVPUSH 10 ML IV SCH (14:13)
[2018-08-14] MEDS: PROPOFOL 100 ML IV SCH (15:00)
[2018-08-14] MEDS: MIDAZOLAM DRIP 50 mg/50mL 50 ML IV SCH (15:00)
[2018-08-14] MEDS: ATORVASTATIN 20 MG TAB PO SCH (22:01)
[2018-08-14] MEDS: FAMOTIDINE (10MG/ML) 2ML VL IV SCH (22:01)
[2018-08-14] MEDS: LABETALOL HCL 5 MG/ML ML 20ML VIAL IV PRN (23:05)
[2018-08-15] VITALS (77 sets, daily range): BP systolic 117–197; BP diastolic 55–97
[2018-08-15] MEDS: InsuLIN REG 1unit/0.01ml Soln (100units/ml) SC SCH ×4 (00:13→18:00)
[2018-08-15] MEDS: ACCU-CHEK COMFORT CURVE STRIP VI SCH ×4 (00:13→17:59)
[2018-08-15] MEDS: ACETYLCYSTEINE 20%(200MG/ML) SOL 4ML NEB SCH ×4 (00:26→18:17)
[2018-08-15] MEDS: ALBUTEROL SULF 2.5 MG/0.5ML(0.5%) NEB SOLN NEB SCH ×4 (00:26→18:17)
[2018-08-15] MEDS: IPRATROPIUM BROM 0.5 MG/2.5ML INH SOL NEB SCH ×4 (00:26→18:17)
[2018-08-15] MEDS: LABETALOL HCL 5 MG/ML ML 20ML VIAL IV PRN ×5 (03:06→23:16)
[2018-08-15 06:48] LABS: Eosinophils # (auto) 0.4 uL; Eosinophils % (auto) 5.3 % (0.0-7.0); Hemoglobin 7.6 g/dL (12.2-16.2); Neutrophils # (auto) 5.3 uL; Nucleated Red Blood Cells % 0.1 %; White Blood Cell 7.4 10^3/uL (4.4-10.8)
[2018-08-15 06:52] LABS: Basophils # (auto) 0.1 uL; Basophils % (auto) 0.7 % (0.0-2.0); Hematocrit 24.7 % (36.0-46.0); Lymphocytes % (auto) 13.3 % (10.0-50.0); Mean Corpuscular Hemoglobin 32.5 pg (28.0-32.0); Mean Corpuscular Hgb Conc. 30.9 g/dL (32.0-36.0); Monocytes # (auto) 0.7 uL; Monocytes % (auto) 8.8 % (0.0-12.0); Neutrophils % (auto) 71.9 % (37.0-80.0); Platelet Count (auto) 406 10^3/uL (140-450); Red Blood Cells 2.35 10^6/uL (4.0-5.20); Red Cell Distribution Width 20.1 % (11.8-14.3)
[2018-08-15 07:05] LABS: BUN/Creatinine Ratio 10.8; Calcium 9.2 mg/dL (8.5-10.1); Mean Corpuscular Volume 105.2 fL (80.0-100.0); Potassium 3.6 mmol/L (3.5-5.1)
[2018-08-15] MEDS: cefTRIAXone 1GM/10ml IVPUSH 10 ML IV SCH (09:46)
[2018-08-15] MEDS: ASPirin 81 mg TAB PO SCH (10:04)
[2018-08-15] MEDS: PANTOPRAZOLE 40 MG/10 ML VIAL IV SCH (10:06)
[2018-08-15] MEDS: HEPARIN SODIUM (PORCINE) 5000 UNITS/ML 1ML VIAL SC SCH ×2 (10:10→21:58)
[2018-08-15] MEDS: PROPOFOL 100 ML IV SCH (15:00)
[2018-08-15] MEDS: MIDAZOLAM DRIP 50 mg/50mL 50 ML IV SCH (15:00)
[2018-08-15] MEDS: ACETAMINOPHEN 325 MG TAB PO PRN (17:25)
[2018-08-15] MEDS: FAMOTIDINE (10MG/ML) 2ML VL IV SCH (21:57)
[2018-08-15] MEDS: ATORVASTATIN 20 MG TAB PO SCH (21:57)
[2018-08-15] MEDS: MORPHINE SULFATE 4 MG/ML SYR/VIAL IV PRN (23:16)
[2018-08-16] VITALS (53 sets, daily range): BP systolic 113–178; BP diastolic 44–81
[2018-08-16] MEDS: InsuLIN REG 1unit/0.01ml Soln (100units/ml) SC SCH ×4 (00:01→18:25)
[2018-08-16] MEDS: ACCU-CHEK COMFORT CURVE STRIP VI SCH ×4 (00:01→18:24)
[2018-08-16] MEDS: ALBUTEROL SULF 2.5 MG/0.5ML(0.5%) NEB SOLN NEB SCH ×4 (00:17→18:32)
[2018-08-16] MEDS: ACETYLCYSTEINE 20%(200MG/ML) SOL 4ML NEB SCH ×4 (00:17→18:32)
[2018-08-16] MEDS: IPRATROPIUM BROM 0.5 MG/2.5ML INH SOL NEB SCH ×4 (00:17→18:32)
[2018-08-16] MEDS: LABETALOL HCL 5 MG/ML ML 20ML VIAL IV PRN ×2 (01:32→05:18)
[2018-08-16 04:07] LABS: Eosinophils # (auto) 0.5 uL; Lymphocytes # (auto) 1.5 uL; Mean Corpuscular Volume 102.5 fL (80.0-100.0); Monocytes # (auto) 0.7 uL; Nucleated Red Blood Cells % 0.1 %
[2018-08-16 04:10] LABS: Basophils # (auto) 0 uL; Basophils % (auto) 0.5 % (0.0-2.0); Eosinophils % (auto) 5.2 % (0.0-7.0); Hematocrit 23.4 % (36.0-46.0); Hemoglobin 7.4 g/dL (12.2-16.2); Lymphocytes % (auto) 15.4 % (10.0-50.0); Mean Corpuscular Hemoglobin 32.3 pg (28.0-32.0); Mean Corpuscular Hgb Conc. 31.5 g/dL (32.0-36.0); Monocytes % (auto) 7.3 % (0.0-12.0); Neutrophils # (auto) 6.9 uL; Neutrophils % (auto) 71.6 % (37.0-80.0); Platelet Count (auto) 415 10^3/uL (140-450); Red Blood Cells 2.28 10^6/uL (4.0-5.20); White Blood Cell 9.7 10^3/uL (4.4-10.8)
[2018-08-16 04:23] LABS: Albumin 1.6 g/dL (3.4-5.0); Calcium 9.4 mg/dL (8.5-10.1); Potassium 3.2 mmol/L (3.5-5.1)
[2018-08-16 04:25] LABS: BUN/Creatinine Ratio 12.1
[2018-08-16 04:28] LABS: Bilirubin, Total 0.3 mg/dL (0.2-1.0); Total Protein 7.7 g/dL (6.4-8.2)
[2018-08-16] MEDS: cefTRIAXone 1GM/10ml IVPUSH 10 ML IV SCH (10:24)
[2018-08-16] MEDS: PANTOPRAZOLE 40 MG/10 ML VIAL IV SCH (10:24)
[2018-08-16] MEDS: ASPirin 81 mg TAB PO SCH (10:24)
[2018-08-16] MEDS: HEPARIN SODIUM (PORCINE) 5000 UNITS/ML 1ML VIAL SC SCH ×2 (10:25→22:00)
[2018-08-16] MEDS: PROPOFOL 100 ML IV SCH (15:00)
[2018-08-16] MEDS: MIDAZOLAM DRIP 50 mg/50mL 50 ML IV SCH (15:00)
[2018-08-16] MEDS ORDERED: ACETAMINOPHEN 650 mg PER 20 mL UD ONE (18:42)
[2018-08-16] MEDS: ATORVASTATIN 20 MG TAB PO SCH (22:00)
[2018-08-16] MEDS: FAMOTIDINE (10MG/ML) 2ML VL IV SCH (22:00)
[2018-08-17] VITALS (76 sets, daily range): BP systolic 105–177; BP diastolic 41–90
[2018-08-17] MEDS: ACETYLCYSTEINE 20%(200MG/ML) SOL 4ML NEB SCH ×5 (00:03→23:54)
[2018-08-17] MEDS: ALBUTEROL SULF 2.5 MG/0.5ML(0.5%) NEB SOLN NEB SCH ×5 (00:04→23:54)
[2018-08-17] MEDS: IPRATROPIUM BROM 0.5 MG/2.5ML INH SOL NEB SCH ×5 (00:04→23:54)
[2018-08-17 03:53] LABS: Basophils # (auto) 0.1 uL; Eosinophils # (auto) 0.7 uL; Lymphocytes # (auto) 1.7 uL; Monocytes # (auto) 0.8 uL
[2018-08-17 03:56] LABS: Basophils % (auto) 0.6 % (0.0-2.0); Eosinophils % (auto) 6.1 % (0.0-7.0); Lymphocytes % (auto) 15.6 % (10.0-50.0); Mean Corpuscular Hemoglobin 31.2 pg (28.0-32.0); Mean Corpuscular Hgb Conc. 30.4 g/dL (32.0-36.0); Mean Corpuscular Volume 102.5 fL (80.0-100.0); Monocytes % (auto) 7.2 % (0.0-12.0); Neutrophils # (auto) 7.5 uL; Neutrophils % (auto) 70.5 % (37.0-80.0); Platelet Count (auto) 402 10^3/uL (140-450); Red Blood Cells 2.44 10^6/uL (4.0-5.20); White Blood Cell 10.6 10^3/uL (4.4-10.8)
[2018-08-17 04:05] LABS: Hemoglobin 7.7 g/dL (12.2-16.2); Red Cell Distribution Width 19.8 % (11.8-14.3)
[2018-08-17 04:12] LABS: Potassium 3.5 mmol/L (3.5-5.1)
[2018-08-17 04:16] LABS: Albumin 1.6 g/dL (3.4-5.0); BUN/Creatinine Ratio 13.6; Calcium 9.4 mg/dL (8.5-10.1)
[2018-08-17 04:19] LABS: Bilirubin, Total 0.4 mg/dL (0.2-1.0); Total Protein 7.8 g/dL (6.4-8.2)
[2018-08-17] MEDS: InsuLIN REG 1unit/0.01ml Soln (100units/ml) SC SCH ×4 (06:00→18:30)
[2018-08-17] MEDS: ACCU-CHEK COMFORT CURVE STRIP VI SCH ×4 (06:00→18:30)
[2018-08-17] MEDS: ACETAMINOPHEN 650 MG RECT SUPP PR PRN (08:30)
[2018-08-17] MEDS: HEPARIN SODIUM (PORCINE) 5000 UNITS/ML 1ML VIAL SC SCH ×2 (10:00→22:00)
[2018-08-17] MEDS: PANTOPRAZOLE 40 MG/10 ML VIAL IV SCH (11:28)
[2018-08-17] MEDS: cefTRIAXone 1GM/10ml IVPUSH 10 ML IV SCH (11:28)
[2018-08-17] MEDS: MIDAZOLAM DRIP 50 mg/50mL 50 ML IV SCH (15:00)
[2018-08-17] MEDS: PROPOFOL 100 ML IV SCH (15:00)
[2018-08-17] MEDS ORDERED: SODIUM CHL 0.9% 1000 ML BAG XX ONE (18:30)
[2018-08-17] MEDS: FAMOTIDINE (10MG/ML) 2ML VL IV SCH (22:00)
[2018-08-17] MEDS: ATORVASTATIN 20 MG TAB PO SCH (22:00)
[2018-08-18] VITALS (80 sets, daily range): BP systolic 91–165; BP diastolic 45–122
[2018-08-18 04:09] LABS: Eosinophils # (auto) 0.8 uL; Hemoglobin 7.2 g/dL (12.2-16.2); Lymphocytes # (auto) 1.6 uL; Lymphocytes % (auto) 16.3 % (10.0-50.0); Monocytes # (auto) 0.7 uL; Neutrophils # (auto) 6.5 uL
[2018-08-18 04:14] LABS: Basophils # (auto) 0 uL; Basophils % (auto) 0.5 % (0.0-2.0); Hematocrit 23.1 % (36.0-46.0); Mean Corpuscular Hemoglobin 31.5 pg (28.0-32.0); Mean Corpuscular Hgb Conc. 31.3 g/dL (32.0-36.0); Mean Corpuscular Volume 100.7 fL (80.0-100.0); Monocytes % (auto) 6.9 % (0.0-12.0); Neutrophils % (auto) 68.3 % (37.0-80.0); Platelet Count (auto) 361 10^3/uL (140-450); Red Blood Cells 2.29 10^6/uL (4.0-5.20); Red Cell Distribution Width 19.7 % (11.8-14.3); White Blood Cell 9.5 10^3/uL (4.4-10.8)
[2018-08-18 04:29] LABS: Potassium 4.2 mmol/L (3.5-5.1)
[2018-08-18 04:34] LABS: Albumin 1.6 g/dL (3.4-5.0); BUN/Creatinine Ratio 15.6; Bilirubin, Total 0.4 mg/dL (0.2-1.0); Calcium 9.5 mg/dL (8.5-10.1); Total Protein 7.6 g/dL (6.4-8.2)
[2018-08-18] MEDS: ACCU-CHEK COMFORT CURVE STRIP VI SCH ×4 (06:00→18:18)
[2018-08-18] MEDS: InsuLIN REG 1unit/0.01ml Soln (100units/ml) SC SCH ×4 (06:00→18:18)
[2018-08-18] MEDS: ALBUTEROL SULF 2.5 MG/0.5ML(0.5%) NEB SOLN NEB SCH ×3 (06:13→19:10)
[2018-08-18] MEDS: IPRATROPIUM BROM 0.5 MG/2.5ML INH SOL NEB SCH ×3 (06:13→19:10)
[2018-08-18] MEDS: ACETYLCYSTEINE 20%(200MG/ML) SOL 4ML NEB SCH ×3 (06:14→19:10)
[2018-08-18] MEDS: METOCLOPRAMIDE HCL 5MG/ml INJ 2ml VIAL IV PRN (08:33)
[2018-08-18] MEDS: ACETAMINOPHEN 325 MG TAB PO PRN (08:34)
[2018-08-18] MEDS: cefTRIAXone 1GM/10ml IVPUSH 10 ML IV SCH (09:00)
[2018-08-18] MEDS: PANTOPRAZOLE 40 MG/10 ML VIAL IV SCH (10:00)
[2018-08-18] MEDS: HEPARIN SODIUM (PORCINE) 5000 UNITS/ML 1ML VIAL SC SCH ×2 (10:00→22:45)
[2018-08-18] MEDS: PROPOFOL 100 ML IV SCH (15:00)
[2018-08-18] MEDS: MIDAZOLAM DRIP 50 mg/50mL 50 ML IV SCH (15:00)
[2018-08-18] MEDS: FAMOTIDINE (10MG/ML) 2ML VL IV SCH (22:45)
[2018-08-18] MEDS: ATORVASTATIN 20 MG TAB PO SCH (22:45)
[2018-08-19] VITALS (75 sets, daily range): BP systolic 99–156; BP diastolic 50–79
[2018-08-19] MEDS: ACETYLCYSTEINE 20%(200MG/ML) SOL 4ML NEB SCH ×4 (00:14→18:27)
[2018-08-19] MEDS: IPRATROPIUM BROM 0.5 MG/2.5ML INH SOL NEB SCH ×4 (00:15→18:27)
[2018-08-19] MEDS: ALBUTEROL SULF 2.5 MG/0.5ML(0.5%) NEB SOLN NEB SCH ×4 (00:15→18:27)
[2018-08-19] MEDS: ACCU-CHEK COMFORT CURVE STRIP VI SCH ×4 (00:27→17:52)
[2018-08-19] MEDS: InsuLIN REG 1unit/0.01ml Soln (100units/ml) SC SCH ×4 (00:51→17:52)
[2018-08-19 04:00] LABS: Hematocrit 32.8 % (36.0-46.0); Hemoglobin 10.5 g/dL (12.2-16.2); Mean Corpuscular Hemoglobin 30.6 pg (28.0-32.0); Mean Corpuscular Hgb Conc. 31.8 g/dL (32.0-36.0); Platelet Count (auto) 393 10^3/uL (140-450); Red Blood Cells 3.42 10^6/uL (4.0-5.20); Red Cell Distribution Width 19.3 % (11.8-14.3); White Blood Cell 10.1 10^3/uL (4.4-10.8)
[2018-08-19 04:11] LABS: Basophils % (manual) 0 (0.0-2.0); Blast Cells 0; Metamyelocytes % 0; Myelocytes % 0; Promyelocytes % 0; Reactive Lymphocytes 0
[2018-08-19 04:15] LABS: INR 0.99 (0.9-1.15); Partial Thromboplastin Time 21.8 sec (23.78-33.04); Prothrombin Time 10.6 sec (9.27-12.13)
[2018-08-19 04:23] LABS: Albumin 1.9 g/dL (3.4-5.0); BUN/Creatinine Ratio 12.2; Bilirubin, Total 0.4 mg/dL (0.2-1.0); Calcium 9.3 mg/dL (8.5-10.1); Potassium 3.4 mmol/L (3.5-5.1); Total Protein 8.6 g/dL (6.4-8.2)
[2018-08-19 04:37] LABS: Band Neutrophils % (manual) 2; Eosinophils % (manual) 6 (0-7); Lymphocytes % (manual) 14 (10.0-50.0); Monocytes % (manual) 6 (0-12)
[2018-08-19] MEDS ORDERED: VANCOMYCIN 500 MG in D5W 5% 100 ML IV ONE ×2 (09:30→10:30)
[2018-08-19] MEDS: HEPARIN SODIUM (PORCINE) 5000 UNITS/ML 1ML VIAL SC SCH ×2 (10:00→22:30)
[2018-08-19] MEDS: PANTOPRAZOLE 40 MG/10 ML VIAL IV SCH (10:00)
[2018-08-19] MEDS: PROPOFOL 100 ML IV SCH (12:57)
[2018-08-19] MEDS: cefTRIAXone 1GM/10ml IVPUSH 10 ML IV SCH (13:52)
[2018-08-19] MEDS ORDERED: MIDAZOLAM HCL 1MG/1ML-2 ML VIAL ONE (15:40)
[2018-08-19] MEDS ORDERED: fentaNYL CITRATE 100 MCG/2 ML VL ONE (15:40)
[2018-08-19] MEDS: fentaNYL Drip 2500mCg/250mlNS 250 ML IV SCH ×2 (15:45→17:30)
[2018-08-19] MEDS: ATORVASTATIN 20 MG TAB PO SCH (22:28)
[2018-08-19] MEDS: FAMOTIDINE (10MG/ML) 2ML VL IV SCH (22:28)
[2018-08-20] VITALS (85 sets, daily range): BP systolic 89–176; BP diastolic 50–82
[2018-08-20] MEDS: ACETYLCYSTEINE 20%(200MG/ML) SOL 4ML NEB SCH ×4 (00:11→19:11)
[2018-08-20] MEDS: IPRATROPIUM BROM 0.5 MG/2.5ML INH SOL NEB SCH ×4 (00:11→19:10)
[2018-08-20] MEDS: ALBUTEROL SULF 2.5 MG/0.5ML(0.5%) NEB SOLN NEB SCH ×4 (00:11→19:10)
[2018-08-20] MEDS: InsuLIN REG 1unit/0.01ml Soln (100units/ml) SC SCH ×5 (00:21→23:46)
[2018-08-20] MEDS: ACCU-CHEK COMFORT CURVE STRIP VI SCH ×5 (00:21→23:46)
[2018-08-20 04:26] LABS: Hematocrit 31.8 % (36.0-46.0); Hemoglobin 10.3 g/dL (12.2-16.2); Mean Corpuscular Hemoglobin 31.2 pg (28.0-32.0); Mean Corpuscular Hgb Conc. 32.4 g/dL (32.0-36.0); Mean Corpuscular Volume 96.1 fL (80.0-100.0); Platelet Count (auto) 399 10^3/uL (140-450); Red Blood Cells 3.31 10^6/uL (4.0-5.20); Red Cell Distribution Width 18.5 % (11.8-14.3); White Blood Cell 9.5 10^3/uL (4.4-10.8)
[2018-08-20 04:28] LABS: Basophils % (manual) 0 (0.0-2.0); Blast Cells 0; Myelocytes % 0; Promyelocytes % 0; Reactive Lymphocytes 0
[2018-08-20 04:48] LABS: Albumin 1.9 g/dL (3.4-5.0); BUN/Creatinine Ratio 12.5; Band Neutrophils % (manual) 2; Bilirubin, Total 0.4 mg/dL (0.2-1.0); Calcium 9.2 mg/dL (8.5-10.1); Eosinophils % (manual) 5 (0-7); Lymphocytes % (manual) 12 (10.0-50.0); Metamyelocytes % 2; Monocytes % (manual) 3 (0-12); Potassium 4.4 mmol/L (3.5-5.1); Total Protein 7.5 g/dL (6.4-8.2)
[2018-08-20] MEDS: fentaNYL Drip 2500mCg/250mlNS 250 ML IV SCH (08:35)
[2018-08-20] MEDS: cefTRIAXone 1GM/10ml IVPUSH 10 ML IV SCH (08:55)
[2018-08-20] MEDS: PANTOPRAZOLE 40 MG/10 ML VIAL IV SCH (10:40)
[2018-08-20] MEDS: HEPARIN SODIUM (PORCINE) 5000 UNITS/ML 1ML VIAL SC SCH ×2 (10:41→22:00)
[2018-08-20] MEDS ORDERED: EPINEPHrine HCL 0.5 ML NEB NEB ONE (13:45)
[2018-08-20] MEDS: ACETAMINOPHEN 650 mg PER 20 mL UD GT PRN ×2 (14:04→21:58)
[2018-08-20] MEDS: PROPOFOL 100 ML IV SCH (15:00)
[2018-08-20] MEDS: MORPHINE SULFATE 4 MG/ML SYR/VIAL IV PRN ×2 (16:04→23:44)
[2018-08-20] MEDS: FAMOTIDINE (10MG/ML) 2ML VL IV SCH (21:58)
[2018-08-20] MEDS: ATORVASTATIN 20 MG TAB PO SCH (21:59)
[2018-08-21] VITALS (78 sets, daily range): BP systolic 111–165; BP diastolic 52–85
[2018-08-21] MEDS: ALBUTEROL SULF 2.5 MG/0.5ML(0.5%) NEB SOLN NEB SCH ×4 (00:17→19:14)
[2018-08-21] MEDS: ACETYLCYSTEINE 20%(200MG/ML) SOL 4ML NEB SCH ×4 (00:17→19:15)
[2018-08-21] MEDS: IPRATROPIUM BROM 0.5 MG/2.5ML INH SOL NEB SCH ×4 (00:17→19:14)
[2018-08-21 04:12] LABS: Basophils # (auto) 0.1 uL; Basophils % (auto) 0.6 % (0.0-2.0); Eosinophils # (auto) 0.4 uL; Eosinophils % (auto) 3.5 % (0.0-7.0); Hematocrit 33.4 % (36.0-46.0); Hemoglobin 10.6 g/dL (12.2-16.2); Lymphocytes # (auto) 1.5 uL; Lymphocytes % (auto) 12.5 % (10.0-50.0); Mean Corpuscular Hemoglobin 30.9 pg (28.0-32.0); Mean Corpuscular Hgb Conc. 31.6 g/dL (32.0-36.0); Mean Corpuscular Volume 97.8 fL (80.0-100.0); Monocytes % (auto) 8.3 % (0.0-12.0); Neutrophils # (auto) 8.8 uL; Neutrophils % (auto) 75.1 % (37.0-80.0); Platelet Count (auto) 387 10^3/uL (140-450); Red Blood Cells 3.41 10^6/uL (4.0-5.20); Red Cell Distribution Width 18.9 % (11.8-14.3); White Blood Cell 11.7 10^3/uL (4.4-10.8)
[2018-08-21 04:30] LABS: Albumin 1.9 g/dL (3.4-5.0); BUN/Creatinine Ratio 12.5; Bilirubin, Total 0.4 mg/dL (0.2-1.0); Calcium 9.7 mg/dL (8.5-10.1); Potassium 3.8 mmol/L (3.5-5.1); Total Protein 8.5 g/dL (6.4-8.2)
[2018-08-21] MEDS: MORPHINE SULFATE 4 MG/ML SYR/VIAL IV PRN ×4 (05:30→22:40)
[2018-08-21] MEDS: ACCU-CHEK COMFORT CURVE STRIP VI SCH ×3 (05:41→18:21)
[2018-08-21] MEDS: InsuLIN REG 1unit/0.01ml Soln (100units/ml) SC SCH ×3 (05:41→18:27)
[2018-08-21] MEDS: cefTRIAXone 1GM/10ml IVPUSH 10 ML IV SCH (09:25)
[2018-08-21] MEDS: PANTOPRAZOLE 40 MG/10 ML VIAL IV SCH (11:04)
[2018-08-21] MEDS: HEPARIN SODIUM (PORCINE) 5000 UNITS/ML 1ML VIAL SC SCH ×2 (11:06→22:07)
[2018-08-21] MEDS: ACETAMINOPHEN 650 mg PER 20 mL UD GT PRN (14:10)
[2018-08-21] MEDS: BISACODYL 10 MG RECT SUPP PR PRN (20:23)
[2018-08-21] MEDS: FAMOTIDINE (10MG/ML) 2ML VL IV SCH (22:07)
[2018-08-21] MEDS: ATORVASTATIN 20 MG TAB PO SCH (22:07)
[2018-08-22] VITALS (49 sets, daily range): BP systolic 112–161; BP diastolic 55–80
[2018-08-22] MEDS: InsuLIN REG 1unit/0.01ml Soln (100units/ml) SC SCH ×4 (00:03→17:41)
[2018-08-22] MEDS: ACCU-CHEK COMFORT CURVE STRIP VI SCH ×4 (00:03→17:41)
[2018-08-22] MEDS: IPRATROPIUM BROM 0.5 MG/2.5ML INH SOL NEB SCH ×4 (00:28→18:35)
[2018-08-22] MEDS: ACETYLCYSTEINE 20%(200MG/ML) SOL 4ML NEB SCH ×4 (00:28→18:35)
[2018-08-22] MEDS: ALBUTEROL SULF 2.5 MG/0.5ML(0.5%) NEB SOLN NEB SCH ×4 (00:28→18:35)
[2018-08-22 05:10] LABS: Calcium 9.2 mg/dL (8.5-10.1); Potassium 4.2 mmol/L (3.5-5.1)
[2018-08-22] MEDS: MORPHINE SULFATE 4 MG/ML SYR/VIAL IV PRN (10:19)
[2018-08-22] MEDS: PANTOPRAZOLE 40 MG/10 ML VIAL IV SCH (10:20)
[2018-08-22] MEDS: HEPARIN SODIUM (PORCINE) 5000 UNITS/ML 1ML VIAL SC SCH ×2 (10:21→21:31)
[2018-08-22] MEDS: cefTRIAXone 1GM/10ml IVPUSH 10 ML IV SCH (10:21)
[2018-08-22] MEDS: FAMOTIDINE (10MG/ML) 2ML VL IV SCH (21:31)
[2018-08-22] MEDS: ATORVASTATIN 20 MG TAB PO SCH (21:31)
[2018-08-23] VITALS (7 sets, daily range): BP systolic 124–161; BP diastolic 60–82
[2018-08-23] MEDS: ACCU-CHEK COMFORT CURVE STRIP VI SCH ×5 (00:33→23:42)
[2018-08-23] MEDS: InsuLIN REG 1unit/0.01ml Soln (100units/ml) SC SCH ×5 (00:33→23:42)
[2018-08-23] MEDS: IPRATROPIUM BROM 0.5 MG/2.5ML INH SOL NEB SCH ×4 (00:34→18:29)
[2018-08-23] MEDS: ALBUTEROL SULF 2.5 MG/0.5ML(0.5%) NEB SOLN NEB SCH ×4 (00:34→18:29)
[2018-08-23] MEDS: ACETYLCYSTEINE 20%(200MG/ML) SOL 4ML NEB SCH ×4 (00:35→18:29)
[2018-08-23 05:27] LABS: Basophils # (auto) 0.1 uL; Basophils % (auto) 0.5 % (0.0-2.0); Eosinophils # (auto) 0.5 uL; Hemoglobin 10.3 g/dL (12.2-16.2); Lymphocytes # (auto) 1.3 uL; Monocytes # (auto) 0.7 uL; Neutrophils # (auto) 8.9 uL; Neutrophils % (auto) 77.7 % (37.0-80.0)
[2018-08-23 05:28] LABS: Eosinophils % (auto) 4.6 % (0.0-7.0); Lymphocytes % (auto) 11.3 % (10.0-50.0); Mean Corpuscular Hemoglobin 31.1 pg (28.0-32.0); Mean Corpuscular Hgb Conc. 32.1 g/dL (32.0-36.0); Mean Corpuscular Volume 96.7 fL (80.0-100.0); Monocytes % (auto) 5.9 % (0.0-12.0); Nucleated Red Blood Cells % 0.1 %; Platelet Count (auto) 451 10^3/uL (140-450); Red Blood Cells 3.31 10^6/uL (4.0-5.20); Red Cell Distribution Width 18.3 % (11.8-14.3); White Blood Cell 11.4 10^3/uL (4.4-10.8)
[2018-08-23 05:50] LABS: Potassium 4.7 mmol/L (3.5-5.1)
[2018-08-23 05:54] LABS: Albumin 1.7 g/dL (3.4-5.0); BUN/Creatinine Ratio 12.2; Calcium 9.4 mg/dL (8.5-10.1)
[2018-08-23 05:56] LABS: Bilirubin, Total 0.5 mg/dL (0.2-1.0); Total Protein 8.3 g/dL (6.4-8.2)
[2018-08-23] MEDS: HEPARIN SODIUM (PORCINE) 5000 UNITS/ML 1ML VIAL SC SCH ×2 (10:16→22:29)
[2018-08-23] MEDS: PANTOPRAZOLE 40 MG/10 ML VIAL IV SCH (10:16)
[2018-08-23] MEDS: ACETAMINOPHEN 650 mg PER 20 mL UD GT PRN (15:42)
[2018-08-23] MEDS ORDERED: VANCOMYCIN PER PHARMACY 0 MG IV SCH (17:15)
[2018-08-23] MEDS: ATORVASTATIN 20 MG TAB PO SCH (22:28)
[2018-08-23] MEDS: FAMOTIDINE (10MG/ML) 2ML VL IV SCH (22:28)
[2018-08-24] MEDS: ALBUTEROL SULF 2.5 MG/0.5ML(0.5%) NEB SOLN NEB SCH ×4 (00:29→18:41)
[2018-08-24] MEDS: IPRATROPIUM BROM 0.5 MG/2.5ML INH SOL NEB SCH ×4 (00:29→18:40)
[2018-08-24] MEDS: ACETYLCYSTEINE 20%(200MG/ML) SOL 4ML NEB SCH ×4 (00:34→18:41)
[2018-08-24] MEDS: ACCU-CHEK COMFORT CURVE STRIP VI SCH ×3 (06:00→17:42)
[2018-08-24 06:09] LABS: Basophils # (auto) 0.1 uL; Basophils % (auto) 0.5 % (0.0-2.0); Eosinophils # (auto) 0.6 uL; Eosinophils % (auto) 5.3 % (0.0-7.0); Hematocrit 30.4 % (36.0-46.0); Hemoglobin 9.8 g/dL (12.2-16.2); Lymphocytes # (auto) 1.4 uL; Lymphocytes % (auto) 12.3 % (10.0-50.0); Mean Corpuscular Hemoglobin 31.1 pg (28.0-32.0); Mean Corpuscular Volume 97.1 fL (80.0-100.0); Monocytes # (auto) 0.7 uL; Neutrophils # (auto) 8.9 uL; Neutrophils % (auto) 75.9 % (37.0-80.0); Nucleated Red Blood Cells % 0.1 %; Platelet Count (auto) 446 10^3/uL (140-450); Red Blood Cells 3.13 10^6/uL (4.0-5.20); Red Cell Distribution Width 19.3 % (11.8-14.3); White Blood Cell 11.8 10^3/uL (4.4-10.8)
[2018-08-24 06:17] LABS: BUN/Creatinine Ratio 13.5; Calcium 9.5 mg/dL (8.5-10.1); Potassium 4.9 mmol/L (3.5-5.1)
[2018-08-24] MEDS: InsuLIN REG 1unit/0.01ml Soln (100units/ml) SC SCH ×3 (06:33→17:42)
[2018-08-24 08:00] VITALS: BP 149/78
[2018-08-24] MEDS: PANTOPRAZOLE 40 MG/10 ML VIAL IV SCH (09:40)
[2018-08-24] MEDS: Nepro With Carb Steady 1 Liter Bottle GT SCH (09:40)
[2018-08-24] MEDS: HEPARIN SODIUM (PORCINE) 5000 UNITS/ML 1ML VIAL SC SCH ×3 (10:00→22:33)
[2018-08-24 12:00] VITALS: BP 136/69
[2018-08-24] MEDS ORDERED: EPOETIN ALFA 2,000 UNIT/1 ML VIAL IV ONE (13:00)
[2018-08-24] MEDS ORDERED: ALBUMIN 25% 100 ML IV ONE (13:00)
[2018-08-24] MEDS ORDERED: EPOETIN ALFA 3,000 UNIT/1 ML VIAL IV ONE (13:00)
[2018-08-24 15:48] VITALS: BP 111/61
[2018-08-24 16:00] VITALS: BP 115/54
[2018-08-24] MEDS ORDERED: VANCOMYCIN 500 MG in D5W 5% 100 ML IV ONE (17:00)
[2018-08-24 20:00] VITALS: BP 126/64
[2018-08-24] MEDS: FAMOTIDINE (10MG/ML) 2ML VL IV SCH (22:26)
[2018-08-24] MEDS: ATORVASTATIN 20 MG TAB PO SCH (22:26)
[2018-08-25] VITALS (7 sets, daily range): BP systolic 109–146; BP diastolic 53–68
[2018-08-25] MEDS: ALBUTEROL SULF 2.5 MG/0.5ML(0.5%) NEB SOLN NEB SCH ×4 (00:23→18:24)
[2018-08-25] MEDS: IPRATROPIUM BROM 0.5 MG/2.5ML INH SOL NEB SCH ×4 (00:23→18:24)
[2018-08-25] MEDS: ACETYLCYSTEINE 20%(200MG/ML) SOL 4ML NEB SCH ×4 (00:23→18:24)
[2018-08-25] MEDS: InsuLIN REG 1unit/0.01ml Soln (100units/ml) SC SCH ×5 (00:29→23:45)
[2018-08-25] MEDS: ACCU-CHEK COMFORT CURVE STRIP VI SCH ×5 (06:00→23:45)
[2018-08-25 06:06] LABS: Basophils # (auto) 0.1 uL; Basophils % (auto) 0.5 % (0.0-2.0); Eosinophils # (auto) 0.4 uL; Eosinophils % (auto) 3.7 % (0.0-7.0); Hematocrit 32.5 % (36.0-46.0); Hemoglobin 10.3 g/dL (12.2-16.2); Lymphocytes % (auto) 10.3 % (10.0-50.0); Mean Corpuscular Hemoglobin 31.2 pg (28.0-32.0); Mean Corpuscular Hgb Conc. 31.8 g/dL (32.0-36.0); Mean Corpuscular Volume 98.2 fL (80.0-100.0); Monocytes # (auto) 0.7 uL; Monocytes % (auto) 7.7 % (0.0-12.0); Neutrophils # (auto) 7.4 uL; Neutrophils % (auto) 77.8 % (37.0-80.0); Nucleated Red Blood Cells % 0.1 %; Platelet Count (auto) 423 10^3/uL (140-450); Red Blood Cells 3.31 10^6/uL (4.0-5.20); Red Cell Distribution Width 19.2 % (11.8-14.3); White Blood Cell 9.5 10^3/uL (4.4-10.8)
[2018-08-25 06:17] LABS: Albumin 2.3 g/dL (3.4-5.0); Bilirubin, Total 0.5 mg/dL (0.2-1.0); Calcium 9.5 mg/dL (8.5-10.1); Potassium 3.7 mmol/L (3.5-5.1); Total Protein 8.6 g/dL (6.4-8.2)
[2018-08-25] MEDS: PANTOPRAZOLE 40 MG/10 ML VIAL IV SCH (10:57)
[2018-08-25] MEDS: HEPARIN SODIUM (PORCINE) 5000 UNITS/ML 1ML VIAL SC SCH ×2 (10:59→21:42)
[2018-08-25] MEDS: FAMOTIDINE (10MG/ML) 2ML VL IV SCH (21:30)
[2018-08-25] MEDS: ATORVASTATIN 20 MG TAB PO SCH (21:31)
[2018-08-25] MEDS: INSULIN LANTUS (GLARGINE) 1 /0.01ml (100units/ml) SC SCH (21:42)
[2018-08-26] VITALS: BP 145/74
[2018-08-26] MEDS: ALBUTEROL SULF 2.5 MG/0.5ML(0.5%) NEB SOLN NEB SCH ×4 (00:07→19:42)
[2018-08-26] MEDS: IPRATROPIUM BROM 0.5 MG/2.5ML INH SOL NEB SCH ×4 (00:07→19:42)
[2018-08-26] MEDS: ACETYLCYSTEINE 20%(200MG/ML) SOL 4ML NEB SCH ×4 (00:07→19:42)
[2018-08-26 04:00] VITALS: BP 149/73
[2018-08-26] MEDS: ACCU-CHEK COMFORT CURVE STRIP VI SCH ×4 (05:48→23:17)
[2018-08-26 06:17] LABS: Potassium 3.8 mmol/L (3.5-5.1)
[2018-08-26] MEDS: InsuLIN REG 1unit/0.01ml Soln (100units/ml) SC SCH ×4 (06:24→23:21)
[2018-08-26 08:00] VITALS: BP 134/70
[2018-08-26] MEDS: PANTOPRAZOLE 40 MG/10 ML VIAL IV SCH (09:42)
[2018-08-26] MEDS: HEPARIN SODIUM (PORCINE) 5000 UNITS/ML 1ML VIAL SC SCH ×2 (09:43→21:40)
[2018-08-26 12:00] VITALS: BP 152/76
[2018-08-26 15:54] VITALS: BP 134/67
[2018-08-26 19:56] VITALS: BP 142/70
[2018-08-26] MEDS: ACETAMINOPHEN 650 mg PER 20 mL UD GT PRN (20:51)
[2018-08-26] MEDS: INSULIN LANTUS (GLARGINE) 1 /0.01ml (100units/ml) SC SCH (21:26)
[2018-08-26] MEDS: ATORVASTATIN 20 MG TAB PO SCH (21:26)
[2018-08-26] MEDS: FAMOTIDINE (10MG/ML) 2ML VL IV SCH (21:26)
[2018-08-27] VITALS (9 sets, daily range): BP systolic 98–157; BP diastolic 53–93
[2018-08-27] MEDS: ALBUTEROL SULF 2.5 MG/0.5ML(0.5%) NEB SOLN NEB SCH ×5 (00:37→21:38)
[2018-08-27] MEDS: IPRATROPIUM BROM 0.5 MG/2.5ML INH SOL NEB SCH ×5 (00:37→21:38)
[2018-08-27] MEDS: ACETYLCYSTEINE 20%(200MG/ML) SOL 4ML NEB SCH ×5 (00:38→21:39)
[2018-08-27 07:25] LABS: Basophils # (auto) 0.1 uL; Basophils % (auto) 0.6 % (0.0-2.0); Eosinophils # (auto) 0.4 uL; Eosinophils % (auto) 3.7 % (0.0-7.0); Hematocrit 32.6 % (36.0-46.0); Hemoglobin 10.5 g/dL (12.2-16.2); Lymphocytes # (auto) 1.3 uL; Lymphocytes % (auto) 11.6 % (10.0-50.0); Mean Corpuscular Hemoglobin 31.6 pg (28.0-32.0); Mean Corpuscular Hgb Conc. 32.2 g/dL (32.0-36.0); Mean Corpuscular Volume 98.1 fL (80.0-100.0); Monocytes # (auto) 0.6 uL; Monocytes % (auto) 5.4 % (0.0-12.0); Neutrophils # (auto) 8.6 uL; Neutrophils % (auto) 78.7 % (37.0-80.0); Nucleated Red Blood Cells % 0.2 %; Platelet Count (auto) 406 10^3/uL (140-450); Red Blood Cells 3.32 10^6/uL (4.0-5.20); Red Cell Distribution Width 19.2 % (11.8-14.3); White Blood Cell 10.8 10^3/uL (4.4-10.8)
[2018-08-27] MEDS: ACCU-CHEK COMFORT CURVE STRIP VI SCH ×4 (07:51→23:43)
[2018-08-27] MEDS: InsuLIN REG 1unit/0.01ml Soln (100units/ml) SC SCH ×4 (07:51→23:43)
[2018-08-27 07:55] LABS: Albumin 2.1 g/dL (3.4-5.0); Calcium 10.2 mg/dL (8.5-10.1); Potassium 4.3 mmol/L (3.5-5.1)
[2018-08-27 07:57] LABS: BUN/Creatinine Ratio 12.2
[2018-08-27 08:00] LABS: Bilirubin, Total 0.4 mg/dL (0.2-1.0)
[2018-08-27] MEDS: HEPARIN SODIUM (PORCINE) 5000 UNITS/ML 1ML VIAL SC SCH ×2 (09:27→22:00)
[2018-08-27] MEDS: PANTOPRAZOLE 40 MG/10 ML VIAL IV SCH (09:30)
[2018-08-27] MEDS: ACETAMINOPHEN 650 mg PER 20 mL UD GT PRN ×2 (12:38→18:37)
[2018-08-27] MEDS ORDERED: SODIUM CHL 0.9% 1000 ML BAG XX ONE (14:30)
[2018-08-27] MEDS ORDERED: EPOETIN ALFA 3,000 UNIT/1 ML VIAL IV ONE (14:30)
[2018-08-27] MEDS ORDERED: EPOETIN ALFA 2,000 UNIT/1 ML VIAL IV ONE (14:30)
[2018-08-27] MEDS: FAMOTIDINE (10MG/ML) 2ML VL IV SCH (22:00)
[2018-08-27] MEDS: ATORVASTATIN 20 MG TAB PO SCH (22:00)
[2018-08-27] MEDS: INSULIN LANTUS (GLARGINE) 1 /0.01ml (100units/ml) SC SCH (22:00)
== END 2018-08-28 00:25 | disposition hospice, home (50) | DRG 710 ==
LOC: ER 12:13 → OVERFLOW 12:14 → ICU WEST 23:38 → DOU IN ICU 08-22 16:12 → TELE-WESTW 08-27 01:02
PROVIDERS: ADMIT Internal Medicine; ATTEND Internal Medicine
PROC: 5A1D70Z Performance of Urinary Filtration, Intermittent, Less than 6 Hours Per Day (ICD-10-PCS; 2018-08-03)
PROC: 06HM33Z Insertion of Infusion Device into Right Femoral Vein, Percutaneous Approach (ICD-10-PCS; 2018-08-03)
PROC: 5A1945Z Respiratory Ventilation, 24-96 Consecutive Hours (ICD-10-PCS; 2018-08-03)
PROC: 0BH17EZ Insertion of Endotracheal Airway into Trachea, Via Natural or Artificial Opening (ICD-10-PCS; 2018-08-03)
PROC: 30233N1 Transfusion of Nonautologous Red Blood Cells into Peripheral Vein, Percutaneous Approach (ICD-10-PCS; 2018-08-04)
PROC: 5A1D70Z Performance of Urinary Filtration, Intermittent, Less than 6 Hours Per Day (ICD-10-PCS; 2018-08-05)
PROC: 0BH17EZ Insertion of Endotracheal Airway into Trachea, Via Natural or Artificial Opening (ICD-10-PCS; 2018-08-07)
PROC: 5A1955Z Respiratory Ventilation, Greater than 96 Consecutive Hours (ICD-10-PCS; 2018-08-07)
PROC: 0BH17EZ Insertion of Endotracheal Airway into Trachea, Via Natural or Artificial Opening (ICD-10-PCS; 2018-08-07)
PROC: 5A1D70Z Performance of Urinary Filtration, Intermittent, Less than 6 Hours Per Day (ICD-10-PCS; 2018-08-10)
PROC: 5A1D70Z Performance of Urinary Filtration, Intermittent, Less than 6 Hours Per Day (ICD-10-PCS; 2018-08-14)
PROC: 5A1D70Z Performance of Urinary Filtration, Intermittent, Less than 6 Hours Per Day (ICD-10-PCS; 2018-08-18)
PROC: 0Y6H0Z3 Detachment at Right Lower Leg, Low, Open Approach (ICD-10-PCS; principal; 2018-08-19 15:33)
PROC: 5A1D70Z Performance of Urinary Filtration, Intermittent, Less than 6 Hours Per Day (ICD-10-PCS; 2018-08-24)
PROC: 5A1D70Z Performance of Urinary Filtration, Intermittent, Less than 6 Hours Per Day (ICD-10-PCS; 2018-08-27)
DX: A41.9 Sepsis, unspecified organism (principal); I61.9 Nontraumatic intracerebral hemorrhage, unspecified; J96.01 Acute respiratory failure with hypoxia; G92 Toxic encephalopathy; E43 Unspecified severe protein-calorie malnutrition; J15.0 Pneumonia due to Klebsiella pneumoniae; E87.4 Mixed disorder of acid-base balance; T17.890A Other foreign object in other parts of respiratory tract causing asphyxiation, initial encounter; G93.1 Anoxic brain damage, not elsewhere classified; I13.2 Hypertensive heart and chronic kidney disease with heart failure and with stage 5 chronic kidney disease, or end stage renal disease; N17.9 Acute kidney failure, unspecified; E11.21 Type 2 diabetes mellitus with diabetic nephropathy; E11.65 Type 2 diabetes mellitus with hyperglycemia; E87.1 Hypo-osmolality and hyponatremia; E87.5 Hyperkalemia; N18.6 End stage renal disease; E87.0 Hyperosmolality and hypernatremia; E83.41 Hypermagnesemia; E87.8 Other disorders of electrolyte and fluid balance, not elsewhere classified; E11.52 Type 2 diabetes mellitus with diabetic peripheral angiopathy with gangrene; F32.9 Major depressive disorder, single episode, unspecified; F41.9 Anxiety disorder, unspecified; D63.8 Anemia in other chronic diseases classified elsewhere; E11.22 Type 2 diabetes mellitus with diabetic chronic kidney disease; E11.42 Type 2 diabetes mellitus with diabetic polyneuropathy; E11.621 Type 2 diabetes mellitus with foot ulcer; E78.00 Pure hypercholesterolemia, unspecified; F17.200 Nicotine dependence, unspecified, uncomplicated; G40.409 Other generalized epilepsy and epileptic syndromes, not intractable, without status epilepticus; I69.351 Hemiplegia and hemiparesis following cerebral infarction affecting right dominant side; I69.354 Hemiplegia and hemiparesis following cerebral infarction affecting left non-dominant side; I99.8 Other disorder of circulatory system; L97.519 Non-pressure chronic ulcer of other part of right foot with unspecified severity; N25.81 Secondary hyperparathyroidism of renal origin; Y84.8 Other medical procedures as the cause of abnormal reaction of the patient, or of later complication, without mention of misadventure at the time of the procedure; Z51.5 Encounter for palliative care; Z66 Do not resuscitate; Z79.4 Long term (current) use of insulin; Z79.82 Long term (current) use of aspirin; Z79.899 Other long term (current) drug therapy; Z80.0 Family history of malignant neoplasm of digestive organs; Z82.3 Family history of stroke; Z82.49 Family history of ischemic heart disease and other diseases of the circulatory system; Z88.0 Allergy status to penicillin; Z91.040 Latex allergy status; Z89.611 Acquired absence of right leg above knee; Z89.612 Acquired absence of left leg above knee; Z91.15 Patient's noncompliance with renal dialysis; Z91.19 Patient's noncompliance with other medical treatment and regimen; Z93.1 Gastrostomy status; Z99.2 Dependence on renal dialysis; Z68.25 Body mass index [BMI] 25.0-25.9, adult
CPT/HCPCS: 31500; 36415; 36556; 36600; 51702; 70450; 71045; 73700; 74018; 80048; 80053; 80202; 80320; 82805; 82962; 83036; 83605; 83735; 83880; 84132; 84443; 84484; 84702; 85007; 85014; 85018; 85025; 85027; 85610; 85730; 86850; 86900; 86901; 86920; 87040; 87070; 87077; 87081; 87186; 87205; 90935; 92610; 93005; 93306; 94002; 94003; 94640; 94660; 95819; 96374; 96375; 99291; A6257; C9113; J0330; J0610; J0696; J0885; J1642; J1815; J2250; J2543; J3490; J7060; P9047; Q4081